=== PATIENT | female | born 1960 | race Caucasian/White ===

== ENCOUNTER → 2018-04-13 08:11 | Outpatient (CLI) | payer BC, SELFPAY ==
--- NOTE | 2018-04-13 08:13 | MM_ITS ---
MM Dig screening mamm BI w/CAD CAD Screening COMPARISON: Digital mammograms 04/07/2016 and 12/15/2011 INDICATION: There is no personal or family history of breast cancer TECHNIQUE: Standard CC and MLO images were obtained. R2 CAD reviewed. FINDINGS: Prominent heterogenic fibroglandular densities are seen in both breasts and the findings are bilateral and symmetrical. There are scattered benign-appearing calcifications in each breast. There is no new or suspicious lesion in either breast and there are no suspicious microcalcifications. IMPRESSION: Stable exam no suspicious lesion seen recommend yearly follow-up BI-RADS Category: 2 Benign Finding(s) RECOMMENDED FOLLOW-UP: 1YR - 1 YEAR FOLLOW-UP (A letter has been sent to the patient regarding results of the study.)
--- NOTE | 2018-04-13 08:13 | XR_ITS ---
XR DEXA axial skeleton HISTORY: ITS.REASON: screenin ORDERING PHYSICIAN: Andrei Pacheco MD PATIENT AGE: 57 years COMPARISON: 04/07/2016 FINDINGS: The BMD measured at the Right femoral neck is 0.849 g/cm squared with a T score of -1.4. This is considered Osteopenic according to the World Health Organization criteria. Fracture risk is Moderate. Treatment is advised. L1 L4 density has a T score of -0.2. The density of the lumbar spine is decreased by 1.7%. The density of the hips has increased by 2.5% compared to the previous study IMPRESSION: Osteopenia with moderate fracture risk. Recommend follow-up exam April 2020
== END ==
PROVIDERS: Family Provider Family Medicine; PCP Family Medicine; Visit Provider Obstetrics & Gynecology
DX: Z12.31 Encounter for screening mammogram for malignant neoplasm of breast (principal); Z78.0 Asymptomatic menopausal state
CPT/HCPCS: 77067; 77080

== ENCOUNTER → 2021-05-21 07:16 | Outpatient (CLI) | payer BC, SELFPAY ==
--- NOTE | 2021-05-21 07:23 | US_ITS ---
PROCEDURE: US ABDOMEN COMPLETE CLINICAL INDICATION: LT UPPER QUAD PAIN COMPARISON: CR CXR CHEST(2 VIEWS-NOT PORTABLE) from 07/17/2013 FINDINGS: PANCREAS: The body and head of the pancreas have an unremarkable appearance. The tail the pancreas is not well delineated due to overlying bowel gas.. LIVER: Diffuse increased echogenicity of the liver with poor through transmission of sound consistent with hepatic steatosis. No focal liver lesion demonstrated. There is appropriate direction of blood flow within non dilated portal vein. RIGHT KIDNEY: There is an exophytic solid-appearing right renal mass measuring approximately 5 cm projecting from the lateral aspect of the right kidney. No hydronephrosis. LEFT KIDNEY: 2 cm left renal cyst. No hydronephrosis. GALLBLADDER: No gallstones, gallbladder wall thickening, pericholecystic fluid, or biliary dilatation. SPLEEN: Unremarkable. Normal size and echogenicity ASCITES: None demonstrated. Patient reports a palpable abnormality in the left upper quadrant. Evaluation of this area demonstrates a a 5 x 2 cm area of slight increased echogenicity with thin linear bands of increased echogenicity centrally suggesting a lipoma. IMPRESSION: Suspicious 5 cm right renal mass. Suggest CT of the abdomen with renal protocol for further evaluation as neoplasm is considered. Palpable abnormality in the left upper quadrant appears to represent a lipoma Dictated by: Colt Benson MD 05/21/2021 09:17 Colt Benson MD in [place] 05/21/2021 09:17
== END ==
PROVIDERS: PCP Family Medicine; Visit Provider Family Medicine
DX: R10.12 Left upper quadrant pain (principal)
CPT/HCPCS: 76700

== ENCOUNTER → 2021-06-11 08:19 | Outpatient (CLI) | payer BC, SELFPAY ==
--- NOTE | 2021-06-11 08:27 | CT_ITS ---
PROCEDURE: CT ABDOMEN PELVIS WO/W CON CLINICAL INDICATION: NEOPLASM OF RT KIDNEY Neoplasm seen on US 05/21/21 Right renal mass evaluation COMPARISON: US US ABDOMEN COMPLETE from 05/21/2021 TECHNIQUE: IV Contrast: 75ML Isovue 370 Oral Contrast None Axial images obtained with sagittal and coronal reformats. All CT scans at the facility use one or more dose reduction, viz: automated exposure control, ma/kV adjustment per patient size (including targeted exams where dose is matched to indication, i.e. head), or iterative reconstruction technique. FINDINGS: LOWER THORAX: Atelectatic or fibrotic change in the lung bases. ABDOMEN & PELVIS: 2 small hypodensities right hepatic lobe at 2 and 4 mm not readily apparent on the enhanced images and could be due to small hemangiomas. The spleen, adrenal glands, and pancreas has an unremarkable appearance. No radiopaque gallstones. There is a solid right renal mass measuring 4.6 by 3.4 by 3.3 cm projecting off of the lower pole of the right kidney posteriorly which demonstrates some minimal peripheral and heterogeneous contrast enhancement consistent with neoplasm. No calcifications within the lesion. The right renal vein has an unremarkable appearance without evidence of thrombus or enlargement. There is a 2.8 cm left renal cyst. No hydronephrosis. No renal or ureteral calculi. No retroperitoneal adenopathy. No intestinal obstruction or free air. There is a small umbilical hernia containing fat. No evidence of appendicitis or diverticulitis. There has been a prior hysterectomy. No pelvic mass or abnormal fluid collection. No lytic or blastic bony lesions. IMPRESSION: 4.6 cm solid right renal mass consistent with neoplasm likely renal cell carcinoma. No evidence of intra-abdominal metastasis. Dictated by: Colt Benson MD 06/12/2021 08:56 Colt Benson MD in [place] 06/12/2021 08:56
[2021-06-11 09:15] LABS: Blood Urea Nitrogen 20 mg/dl (7-17); Estimated Glomerular Filt Rate 73 ml/min (>60); GFR (African American) 88 ML/MIN (>60)
== END ==
PROVIDERS: PCP Family Medicine; Visit Provider Family Medicine
DX: D41.01 Neoplasm of uncertain behavior of right kidney (principal)
CPT/HCPCS: 36415; 74178; 82565; 84520; Q9967

== ENCOUNTER → 2021-07-06 10:06 | Outpatient (CLI) | payer BC, SELFPAY ==
--- NOTE | 2021-07-06 10:18 | CT_ITS ---
PROCEDURE: CT CHEST WO/W CON CLINCAL INDICATION: renal mass Renal mass. Evaluate for metastatic disease. COMPARISON: CT CT ABDOMEN PELVIS WO/W CON from 06/11/2021 TECHNIQUE: IV Contrast: 75ml Isovue 370 Axial images obtained with sagittal and coronal reformats. All CT scans at the facility use one or more dose reduction, viz: automated exposure control, ma/kV adjustment per patient size (including targeted exams where dose is matched to indication, i.e. head), or iterative reconstruction technique. FINDINGS: No mediastinal or hilar mass or adenopathy. A 1.6 cm nodule is present in the left lobe of the thyroid gland and may be better evaluated with ultrasound. A 4 mm noncalcified nodule is present in the right lower lobe , nonspecific. Calcified granuloma is present in the right lower lobe anteriorly. There are calcified nodes in the roger. A 6 mm noncalcified nodule is present in the left upper lobe 02/09. There are areas of scarring in the left lower lobe. No infiltrates. No effusions apparent. No lytic or blastic bony lesions apparent there are degenerative changes in the thoracic spine.. IMPRESSION: 1. There is a noncalcified 4 mm nodule in the right lower lobe and a noncalcified 6 mm nodule in the left upper lobe. These could be due to granulomas or small metastatic foci. There is evidence of old granulomatous disease with a calcified granuloma in the right lower lobe and calcified hilar lymph nodes. Continued follow-up suggested to confirm stability or progression. 2. 1.6 cm nodule of the left lobe of the thyroid gland which may be better evaluated with ultrasound. Dictated by: Colt Benson MD 07/07/2021 07:43 Colt Benson MD in [place] 07/07/2021 07:43
[2021-07-06 10:33] LABS: Blood Urea Nitrogen 17 mg/dl (7-17); Estimated Glomerular Filt Rate 73 ml/min (>60); GFR (African American) 88 ML/MIN (>60)
== END ==
PROVIDERS: PCP Family Medicine; Visit Provider Urology
DX: N28.89 Other specified disorders of kidney and ureter (principal)
CPT/HCPCS: 36415; 71270; 82565; 84520; Q9967

== ENCOUNTER → 2021-11-02 08:22 | Outpatient (POV) | payer BC, SELFPAY | PROVIDERS: Visit Provider Dermatology | DX: Z00.00 Encounter for general adult medical examination without abnormal findings (principal) ==

== ENCOUNTER → 2021-12-06 16:32 | Outpatient (CLI) | payer BC, SELFPAY ==
[2021-12-06 17:17] LABS: Basophils # 0.1 K/mm3 (0-0.2); Eosinophils # 0.1 K/mm3 (0.0-0.4); Eosinophils % 0.8 % (0.1-12.0); Hematocrit 41.9 % (37.0-47.0); Hemoglobin 13.2 g/dL (12.2-16.2); Mean Corpuscular HGB Conc 31.6 g/dL (31.8-35.4); Mean Corpuscular Hemoglobin 28.4 pg (27.0-31.2); Mean Corpuscular Volume 89.9 fl (81-99); Mean Platelet Volume 8.5 fl (7.4-10.4); Monocytes # 0.5 K/mm3 (0.1-1.0); Monocytes % 4.5 % (1.7-9.3); Neutrophils # 7.1 K/mm3 (1.8-7.8); Neutrophils % 65.6 % (37.0-80.0); Platelet Count 380 K/mm3 (142-424); Red Blood Count 4.66 M/mm3 (4.20-5.40); Red Cell Distribution Width 15.1 % (11.5-17.5); White Blood Count 10.8 K/mm3 (4.8-10.8)
[2021-12-06 19:42] LABS: Alanine Aminotransferase 17 U/L (12-78); Albumin Level 4.6 g/dl (3.5-5.0); Albumin/Globulin Ratio 1.6 (1.1-1.8); Alkaline Phosphatase 87 U/L (38-126); Anion Gap 15.5 mEq/L (5-15); Aspartate Amino Transferase 26 U/L (14-36); Bilirubin,Total 0.8 mg/dl (0.2-1.3); Blood Urea Nitrogen 25 mg/dl (7-17); Calcium 9.7 mg/dl (8.4-10.2); Carbon Dioxide 30 mmol/L (22.0-30.0); Chloride 96 mmol/L (98-107); Estimated Glomerular Filt Rate 73 ml/min (>60); GFR (African American) 88 ML/MIN (>60); Globulin 2.9 g/dL (1.3-3.2); Glucose 89 mg/dl (74-100); Potassium 4.5 mmoL/L (3.5-5.1); Sodium 137 mmol/L (136-145); Total Protein,Serum 7.5 g/dl (6.3-8.2)
== END ==
PROVIDERS: Internal Medicine Medical Oncology; Visit Provider Dermatology
DX: C64.1 Malignant neoplasm of right kidney, except renal pelvis
CPT/HCPCS: 36415; 80053; 85025

== ENCOUNTER → 2021-12-07 08:37 | Outpatient (CLI) | payer BC, SELFPAY ==
--- NOTE | 2021-12-07 08:59 | CT_ITS ---
FINAL REPORT TECHNIQUE: After the administration of intravenous contrast, axial images through the chest were performed by computed tomography. This study was performed with techniques to keep radiation doses as low as reasonably achievable, (ALARA). Individualized dose reduction techniques using automated exposure control or adjustment of mA and/or kV according to the patient''s size were employed. CLINICAL HISTORY: RENAL CELL cancer f/u COMPARISON: 07/06/2021 FINDINGS: There is a 1.7 cm left thyroid lobe nodule which appears stable. There is no axillary adenopathy. There is no hilar or mediastinal adenopathy. The heart size is normal. There is no pericardial or pleural effusion. The previously questioned nodule in the right lower lobe is no longer seen. The density in the left upper lobe appear stable. Finding is well-seen on image 29 of series 4. No new lesion is identified. IMPRESSION: Stable left upper lobe density. Recommend follow-up in one year to confirm stability. Reviewed, Interpreted and Dictated by Ilya Vieira MD Transcribed by Kaycee Whtiaker Authenticated by Ilya Vieira MD on 12/07/2021 12:45:42 PM [facility]
--- NOTE | 2021-12-07 09:01 | CT_ITS ---
FINAL REPORT CLINICAL HISTORY: RENAL CELL f/u COMPARISON: 06/11/2021 FINDINGS: Technique: The patient was injected with intravenous contrast. Axial images through the abdomen and pelvis were performed. Oral contrast was given. This study was performed with techniques to keep radiation doses as low as reasonably achievable (ALARA). Individualized dose reduction techniques using automated exposure control or adjustment of mA and/or kV according to the patient's size were employed. Abdomen: The liver parenchyma is homogeneous. The gallbladder is present. The spleen is unremarkable. The adrenals are normal. The pancreas is unremarkable. There is a defect in the lateral right kidney with adjacent perinephric stranding consistent with interval partial right nephrectomy. No definite residual solid mass is identified. There is a benign-appearing cyst in the left kidney measuring 3.4 cm in diameter. There is no evidence of retroperitoneal adenopathy. The aorta is normal in caliber. Pelvis: The appendix is unremarkable. The bladder is incompletely distended. Uterus is surgically absent. There is no free fluid or adenopathy. IMPRESSION: Interval partial right nephrectomy. No definite residual mass identified. Reviewed, Interpreted and Dictated by Ilya Vieira MD Transcribed by Kaycee Whitaker Authenticated by Ilya Vieira MD on 12/07/2021 12:45:19 PM [facility][1]
== END ==
PROVIDERS: PCP Family Medicine; Visit Provider Internal Medicine Medical Oncology
DX: C64.1 Malignant neoplasm of right kidney, except renal pelvis (principal)
CPT/HCPCS: 71260; 74177; Q9967

== ENCOUNTER → 2022-06-20 13:44 | Outpatient (CLI) | payer BC, SELFPAY ==
[2022-06-20 15:18] LABS: Blood Urea Nitrogen 17 mg/dl (7-17); Estimated Glomerular Filt Rate 73 ml/min (>60); GFR (African American) 88 ML/MIN (>60)
== END ==
PROVIDERS: PCP Family Medicine; Visit Provider Internal Medicine Medical Oncology
DX: C64.1 Malignant neoplasm of right kidney, except renal pelvis (principal)
CPT/HCPCS: 36415; 82565; 84520

== ENCOUNTER → 2022-07-01 08:49 | Outpatient (CLI) | payer BC, OTHER, SELFPAY ==
--- NOTE | 2022-07-01 08:53 | CT_ITS ---
FINAL REPORT CLINICAL HISTORY: RENAL CELL CANCER F/U COMPARISON: December 07, 2021 FINDINGS: Axial CT images of the chest were obtained with contrast. Coronal reformatted images were also obtained. Oral contrast was administered. This study was performed with techniques to keep radiation doses as low as reasonably achievable, (ALARA). Individualized dose reduction techniques using automated exposure control or adjustment of mA and/or KV according to the patient's size were employed. There is a 16 mm nodule in the left thyroid lobe that is visually stable. There is no evidence of mediastinal or hilar mass or adenopathy.No axillary mass or adenopathy is identified. On lung window images, there is mild scarring in the lung bases. There is a stable 5 mm nodule in the left upper lobe, seen on image 33. IMPRESSION: Left upper lobe nodule stable. Reviewed, Interpreted and Dictated by Marques Haynes III, MD Transcribed by Na Rivera Authenticated and [facility]
--- NOTE | 2022-07-01 08:53 | CT_ITS ---
FINAL REPORT CLINICAL HISTORY: RENAL CELL CANCER F/U COMPARISON: December 07, 2021 FINDINGS: CT OF THE ABDOMEN AND PELVIS WITH CONTRAST Axial CT images of the abdomen and pelvis were obtained after the administration of oral and iv contrast. Coronal reformatted images were also obtained and reviewed.This study was performed with techniques to keep radiation doses as low as reasonably achievable (ALARA). Individualized dose reduction techniques using automated exposure control or adjustment of mA and/or kV according to the patient's size were employed. Abdomen: The liver has an unremarkable appearance, without evidence of mass or biliary ductal dilatation. The spleen is unremarkable. No adrenal mass is present. The pancreas has an unremarkable appearance. There are postoperative changes of the lateral right kidney. There is a 3.2 cm cyst in the lower pole of the left kidney which is stable. The aorta is normal in caliber. There is no free fluid or adenopathy. No mass or abnormal fluid collection is seen. There is a small umbilical hernia containing fat. Pelvis: The appendix small. The urinary bladder is unremarkable. No inflammatory process is seen. There is no evidence of mass or adenopathy. There is no evidence of bowel obstruction. The patient is status post hysterectomy. IMPRESSION: Cyst in the lower pole of the left kidney, stable. Postoperative changes lateral right kidney. Reviewed, Interpreted and Dictated by Marques Haynes III, MD Transcribed by Na Rivera Authenticated and [facility]
== END ==
PROVIDERS: PCP Family Medicine; Visit Provider Internal Medicine Medical Oncology
DX: C64.1 Malignant neoplasm of right kidney, except renal pelvis (principal)
CPT/HCPCS: 71260; 74177; Q9967

== ENCOUNTER → 2022-08-30 11:48 | Outpatient (CLI) | payer BC, OTHER, SELFPAY ==
--- NOTE | 2022-08-30 11:55 | XR_ITS ---
FINAL REPORT CLINICAL HISTORY: OBESITY FINDINGS: TWO-VIEW CHEST The heart size is normal. The mediastinum is normal. There is mild bibasilar atelectasis or scar. There is no pneumothorax. IMPRESSION: Mild bibasilar atelectasis or scar. Reviewed, Interpreted and Dictated by Marques Haynes III, MD Transcribed by Kaycee Whitaker Authenticated and [facility]
--- NOTE | 2022-08-30 12:21 | ECG_ITS ---
APPROVED REPORT Exam: Resting ECG HR:47 bpm ECG Measurements Heart Rate 47 AXES SD 168 P 46 QRSd 94 QRS 73 QT 414 T 66 QTc 378 Conclusion SINUS BRADYCARDIA BORDERLINE ECG UNCONFIRMED REPORT Electronically signed by : Mingo Sorenson MD 08/30/2022 20:52:06
== END ==
PROVIDERS: PCP Family Medicine; Visit Provider Nurse Practitioner Family
DX: E66.9 Obesity, unspecified (principal); Z68.42 Body mass index [BMI] 45.0-49.9, adult
CPT/HCPCS: 71046; 93005

== ENCOUNTER 2022-11-02 08:16 | Day surgery (SDC) | payer BC, OTHER, SELFPAY ==
[2022-11-02] VITALS (11 sets, daily range): BP systolic 116–164; BP diastolic 59–100; PULSE 52–66; RESP 16–20; O2SAT 91–95; BMI 44.0
--- NOTE | 2022-11-02 07:03 | IR_ITS ---
APPROVED REPORT Patient Location: Outpatient Job Placement Counselor: IZAIAH Osullivan RT (R) PROCEDURES Left heart catheterization Left ventriculogram Selective coronary angiogram INDICATION Abnormal Myoview, Angina pectoris Informed consent was obtained prior to the procedure. COMPLICATIONS None Estimated Blood Loss: Less than 10 mls TECHNIQUE One percent lidocaine used to anesthetize the right anterior aspect of the wrist. The right radial artery was accessed via the Seldinger technique. A 6 Cypriot sheath was placed in the right radial artery. 2.5 mg of verapamil, 800 mcg of nitroglycerin, 1mg Lidocaine and 5000 U Heparin were given through the arterial sheath. The papa catheter was also used to perform left heart catheterization, left ventriculogram and selective coronary angiogram. At the end of the procedure the sheath was removed good hemostasis was achieved using Traclet band, patient was transferred to the postop holding area in stable condition. ANGIOGRAPHIC RESULTS The left main artery Normal The left anterior descending artery Normal The circumflex artery Dominant normal The right coronary artery Vestigial normal The YBARRA ventriculogram reveals Normal 65% The left ventricular end-diastolic pressure 20 to 25 mmHg IMPRESSION Normal coronary artery Normal ejection fraction Elevated LVEDP consistent with diastolic dysfunction which is the etiology for patient's angina PLAN 1. Treatment of diastolic dysfunction 2. Sleep study recommended Electronically signed by : Devang Irby MD 11/02/2022 11:01:47
[2022-11-02 08:38] LABS: Chloride 102 mmol/L (98-107); Potassium 3.8 mmoL/L (3.5-5.1); Sodium 141 mmol/L (136-145)
[2022-11-02 08:41] LABS: Anion Gap 9.8 mEq/L (5-15); Blood Urea Nitrogen 21 mg/dl (7-17); Carbon Dioxide 33 mmol/L (22.0-30.0); Creatinine Clearance Estimated 55 mL/min (50-200); Estimated Glomerular Filt Rate 56 ml/min (>60); GFR (African American) 68 ML/MIN (>60)
[2022-11-02 08:42] LABS: Calcium 10.3 mg/dl (8.4-10.2); Glucose 112 mg/dl (74-100)
[2022-11-02 10:27] LABS: Basophils # 0.1 K/mm3 (0-0.2); Basophils % 1.5 % (0.1-2.0); Eosinophils # 0.1 K/mm3 (0.0-0.4); Eosinophils % 1.2 % (0.1-12.0); Hematocrit 44.5 % (37.0-47.0); Lymphocytes # 2.6 K/mm3 (0.7-4.5); Mean Corpuscular HGB Conc 31.4 g/dL (31.8-35.4); Mean Corpuscular Hemoglobin 28.2 pg (27.0-31.2); Mean Platelet Volume 8.8 fl (7.4-10.4); Monocytes # 0.3 K/mm3 (0.1-1.0); Monocytes % 4.3 % (1.7-9.3); Neutrophils # 4.7 K/mm3 (1.8-7.8); Platelet Count 366 K/mm3 (142-424); Red Blood Count 4.95 M/mm3 (4.20-5.40); Red Cell Distribution Width 14.5 % (11.5-17.5); White Blood Count 7.8 K/mm3 (4.8-10.8)
== END 2022-11-02 13:53 | disposition home or self-care (01) ==
PROVIDERS: Nurse Practitioner; PCP Nurse Practitioner Family; Visit Provider Internal Medicine
DX: I25.118 Atherosclerotic heart disease of native coronary artery with other forms of angina pectoris (principal); C64.1 Malignant neoplasm of right kidney, except renal pelvis; E78.5 Hyperlipidemia, unspecified; R94.39 Abnormal result of other cardiovascular function study; R06.09 Other forms of dyspnea; Z79.899 Other long term (current) drug therapy
CPT/HCPCS: 36415; 80048; 85025; 93458; 99152; C1725; C1769; J1644; Q9967

== ENCOUNTER → 2023-01-10 09:54 | Outpatient (CLI) | payer BC, OTHER, SELFPAY ==
[2023-01-10 10:33] LABS: Basophils # 0.1 K/mm3 (0-0.2); Eosinophils # 0.1 K/mm3 (0.0-0.4); Eosinophils % 1.2 % (0.1-12.0); Hematocrit 43.5 % (37.0-47.0); Hemoglobin 13.9 g/dL (12.2-16.2); Lymphocytes # 2.3 K/mm3 (0.7-4.5); Lymphocytes % 24.9 % (10-50); Mean Corpuscular HGB Conc 31.9 g/dL (31.8-35.4); Mean Corpuscular Hemoglobin 28.8 pg (27.0-31.2); Mean Corpuscular Volume 90.3 fl (81-99); Mean Platelet Volume 8.5 fl (7.4-10.4); Monocytes # 0.3 K/mm3 (0.1-1.0); Monocytes % 3.5 % (1.7-9.3); Neutrophils # 6.4 K/mm3 (1.8-7.8); Neutrophils % 69.4 % (37.0-80.0); Platelet Count 361 K/mm3 (142-424); Red Blood Count 4.82 M/mm3 (4.20-5.40); Red Cell Distribution Width 14.6 % (11.5-17.5); White Blood Count 9.2 K/mm3 (4.8-10.8)
[2023-01-10 11:06] LABS: Chloride 103 mmol/L (98-107); Potassium 4.8 mmoL/L (3.5-5.1); Sodium 140 mmol/L (136-145)
[2023-01-10 11:08] LABS: Alanine Aminotransferase 21 U/L (12-78); Aspartate Amino Transferase 24 U/L (14-36); Blood Urea Nitrogen 38 mg/dl (7-17); Estimated Glomerular Filt Rate 46 ml/min (>60); GFR (African American) 55 ML/MIN (>60)
[2023-01-10 11:09] LABS: Albumin Level 4.6 g/dl (3.5-5.0); Albumin/Globulin Ratio 1.5 (1.1-1.8); Alkaline Phosphatase 91 U/L (38-126); Anion Gap 12.8 mEq/L (5-15); Bilirubin,Total 0.9 mg/dl (0.2-1.3); Calcium 10.2 mg/dl (8.4-10.2); Carbon Dioxide 29 mmol/L (22.0-30.0); Globulin 3.1 g/dL (1.3-3.2); Glucose 125 mg/dl (74-100); Total Protein,Serum 7.7 g/dl (6.3-8.2)
== END ==
PROVIDERS: PCP Internal Medicine Medical Oncology; Visit Provider Physician Assistant
DX: C64.9 Malignant neoplasm of unspecified kidney, except renal pelvis (principal)
CPT/HCPCS: 36415; 80053; 85025

== ENCOUNTER → 2023-01-11 07:25 | Outpatient (CLI) | payer BC, OTHER, SELFPAY ==
--- NOTE | 2023-01-11 07:33 | CT_ITS ---
FINAL REPORT TECHNIQUE: Pre-and postcontrast axial imaging of the abdomen and pelvis was obtained.This study was performed with techniques to keep radiation doses as low as reasonably achievable, (ALARA). Individualized dose reduction technique using automated exposure control or adjustment of mA and/or kV according to the patient's size were employed. CLINICAL HISTORY: RENAL CELL COMPARISON: 07/01/2022 FINDINGS: The lung bases are clear. The liver is homogeneous. The gallbladder is present. The spleen, adrenal glands, and pancreas are unremarkable. There is a stable 3 cm left renal cyst. Postoperative changes are noted to the lateral inferior right kidney. No solid renal mass is identified. On precontrast imaging, no renal stones are identified. Abdominal GI tract is unremarkable. There is no lymphadenopathy or ascites. The pelvic organs and pelvic portions of the GI tract, including the appendix, are within normal limits. The uterus is surgically absent. There is no lymphadenopathy or ascites. No acute osseous abnormalities identified. IMPRESSION: 1. No acute abnormality in the abdomen or pelvis. 2. Stable left renal cyst. 3. Postoperative changes in the right kidney without evidence of metastatic disease. Reviewed, Interpreted and Dictated by Blessing Ngo MD Transcribed by Kemi Mendez Authenticated and [facility]
== END ==
PROVIDERS: PCP Nurse Practitioner Family; Visit Provider Internal Medicine Medical Oncology
DX: C64.9 Malignant neoplasm of unspecified kidney, except renal pelvis (principal)
CPT/HCPCS: 74178; Q9967

== ENCOUNTER → 2023-01-23 19:46 | Outpatient (CLI) | payer BC, OTHER, SELFPAY | PROVIDERS: PCP Nurse Practitioner Family; Visit Provider Nurse Practitioner Family | DX: G47.33 Obstructive sleep apnea (adult) (pediatric) (principal); R40.0 Somnolence | CPT/HCPCS: 95810 ==

== ENCOUNTER → 2023-04-25 08:52 | Outpatient (CLI) | payer BC, OTHER, SELFPAY | PROVIDERS: PCP Nurse Practitioner Family; Visit Provider Physician Assistant | DX: R06.09 Other forms of dyspnea (principal); I51.89 Other ill-defined heart diseases; R94.30 Abnormal result of cardiovascular function study, unspecified | CPT/HCPCS: 93306; 94762 ==

== ENCOUNTER → 2023-09-07 10:32 | Outpatient (CLI) | payer BC, SELFPAY ==
--- NOTE | 2023-09-07 10:40 | CT_ITS ---
FINAL REPORT TECHNIQUE: Axial images through the abdomen and pelvis were performed without contrast. Oral contrast was given. This study was performed with techniques to keep radiation doses as low as reasonably achievable, (ALARA). Individualized dose reduction techniques using automated exposure control or adjustment of mA and/or kV according to the patient's size were employed. CLINICAL HISTORY: ORAL CONTRAST ONLY, HX OF KIDNEY CANCER RIGHT SIDE, NEW RIGHT SIDE PAIN COMPARISON: 01/11/2023 FINDINGS: ABDOMEN: There is mild scarring at the bases. The patient is status post gastric bypass. The heart size is normal. Limited images of the liver are unremarkable. The spleen is normal. No adrenal mass is identified. The aorta is normal in caliber. There is no significant free fluid or adenopathy. There are postoperative changes in the right kidney. Left renal cyst is identified. Note is made of vascular calcification. There is no nephrolithiasis. There is no hydronephrosis. PELVIS: The appendix is not identified. The patient is status post hysterectomy. The urinary bladder is unremarkable. There is no significant free fluid or adenopathy. IMPRESSION: Postsurgical changes. No acute inflammatory process. Reviewed, Interpreted and Dictated by Marques Haynes III, MD Transcribed by Kaycee Whitaker Authenticated and [facility]
== END ==
PROVIDERS: PCP Nurse Practitioner Family; Visit Provider Internal Medicine Medical Oncology
DX: C64.1 Malignant neoplasm of right kidney, except renal pelvis (principal); R10.31 Right lower quadrant pain
CPT/HCPCS: 74176

== ENCOUNTER → 2023-09-20 10:18 | Outpatient (CLI) | payer BC, SELFPAY ==
--- NOTE | 2023-09-20 10:21 | XR_ITS ---
FINAL REPORT CLINICAL HISTORY: . renal cell cancer 2 years ago, check-up COMPARISON: 08/30/2022 FINDINGS: PA and lateral views of the chest are obtained. The cardiac and mediastinal silhouettes are within normal limits. The lungs are clear. There is no pleural effusion, pneumothorax, or acute osseous abnormality. IMPRESSION: No radiographic evidence of acute cardiac or pulmonary disease. Reviewed, Interpreted and Dictated by Blessing Ngo MD Transcribed by Yolie Lomeli Authenticated and [facility]
== END ==
PROVIDERS: PCP Nurse Practitioner Family; Visit Provider Internal Medicine Medical Oncology
DX: Z85.528 Personal history of other malignant neoplasm of kidney (principal)
CPT/HCPCS: 71046

== ENCOUNTER → 2023-10-25 11:56 | Outpatient (CLI) | payer BC, SELFPAY ==
[2023-10-25 12:54] LABS: Chloride 102 mmol/L (98-107); Sodium 141 mmol/L (136-145)
[2023-10-25 12:55] LABS: Potassium 4.1 mmoL/L (3.5-5.1)
[2023-10-25 12:57] LABS: Blood Urea Nitrogen 23 mg/dl (7-17); Estimated Glomerular Filt Rate 72 ml/min (>60); GFR (African American) 88 ML/MIN (>60)
[2023-10-25 12:58] LABS: Anion Gap 10.1 mEq/L (5-15); Calcium 9.1 mg/dl (8.4-10.2); Carbon Dioxide 33 mmol/L (22.0-30.0); Glucose 99 mg/dl (74-100)
== END ==
PROVIDERS: Nurse Practitioner Family; PCP Nurse Practitioner Family; Visit Provider Obstetrics & Gynecology
DX: I51.89 Other ill-defined heart diseases (principal); R94.30 Abnormal result of cardiovascular function study, unspecified
CPT/HCPCS: 36415; 80048

== ENCOUNTER → 2023-10-30 09:57 | Outpatient (CLI) | payer BC, SELFPAY ==
[2023-10-30 11:20] VITALS: PULSE 69; PULSE 76
== END ==
PROVIDERS: PCP Nurse Practitioner Family; Visit Provider Internal Medicine Pulmonary Disease
DX: R06.09 Other forms of dyspnea (principal)
CPT/HCPCS: 94060; 94618; 94640; 94726; 94729

== ENCOUNTER 2024-01-24 11:34 | Outpatient (CLI) | payer BC, SELFPAY ==
[2024-01-24 12:27] LABS: Basophils # 0.1 K/mm3 (0-0.2); Eosinophils # 0.1 K/mm3 (0.0-0.4); Hemoglobin 12.7 g/dL (12.2-16.2); Lymphocytes # 2.4 K/mm3 (0.7-4.5); Lymphocytes % 34.9 % (10-50); Mean Corpuscular HGB Conc 31.7 g/dL (31.8-35.4); Mean Corpuscular Hemoglobin 30.8 pg (27.0-31.2); Mean Corpuscular Volume 97.2 fl (81-99); Mean Platelet Volume 8.7 fl (7.4-10.4); Monocytes # 0.3 K/mm3 (0.1-1.0); Monocytes % 4.2 % (1.7-9.3); Platelet Count 307 K/mm3 (142-424); Red Blood Count 4.12 M/mm3 (4.20-5.40); Red Cell Distribution Width 14.1 % (11.5-17.5); White Blood Count 6.7 K/mm3 (4.8-10.8)
[2024-01-24 12:55] LABS: Alanine Aminotransferase 32 U/L (12-78); Albumin Level 4.5 g/dl (3.5-5.0); Alkaline Phosphatase 90 U/L (38-126); Anion Gap 10.8 mEq/L (5-15); Aspartate Amino Transferase 42 U/L (14-36); Bilirubin,Indirect 1.4 mg/dL (0.0-0.9); Bilirubin,Total 1.4 mg/dl (0.2-1.3); Bilirubin,Unconjugated 1.4 mg/dL (0.0-1.1); Blood Urea Nitrogen 29 mg/dl (7-17); Calcium 9.5 mg/dl (8.4-10.2); Carbon Dioxide 30 mmol/L (22.0-30.0); Chloride 104 mmol/L (98-107); Chol/HDL Ratio 4.2 (1-3.5); Cholesterol 156 mg/dl (140-200); Estimated Glomerular Filt Rate 72 ml/min (>60); GFR (African American) 88 ML/MIN (>60); Glucose 95 mg/dl (74-100); HDL Cholesterol 37 mg/dl (40-60); Magnesium 2.1 mg/dl (1.6-2.3); Potassium 4.8 mmoL/L (3.5-5.1); Sodium 140 mmol/L (136-145); Triglycerides 168 mg/dl (30-150); VLDL Cholesterol 34 mg/dL (0-40)
[2024-01-24 13:06] LABS: Direct LDL Cholesterol 81.95 mg/dL (100-129)
[2024-01-24 13:25] LABS: Thyroid Stimulating Hormone 1.68 uIU/mL (0.465-4.68)
== END 2024-01-24 23:59 ==
LOC: LAB 11:35
PROVIDERS: PCP Nurse Practitioner Family; Visit Provider Nurse Practitioner Family
DX: E11.69 Type 2 diabetes mellitus with other specified complication (principal); E78.5 Hyperlipidemia, unspecified; E66.9 Obesity, unspecified; Z68.32 Body mass index [BMI] 32.0-32.9, adult; Z86.79 Personal history of other diseases of the circulatory system
CPT/HCPCS: 36415; 80048; 80061; 80076; 83735; 84439; 84443; 85025

== ENCOUNTER 2024-02-24 07:52 | Outpatient (CLI) | payer BC, SELFPAY ==
[2024-02-24 09:24] LABS: Alanine Aminotransferase 30 U/L (12-78); Albumin Level 4.1 g/dl (3.5-5.0); Alkaline Phosphatase 86 U/L (38-126); Aspartate Amino Transferase 35 U/L (14-36); Bilirubin,Direct 0.2 mg/dl (0.0-0.4); Bilirubin,Indirect 0.9 mg/dL (0.0-0.9); Bilirubin,Total 1.1 mg/dl (0.2-1.3); Bilirubin,Unconjugated 0.9 mg/dL (0.0-1.1); Total Protein,Serum 6.9 g/dl (6.3-8.2)
== END 2024-02-24 23:59 ==
LOC: LAB 07:53
PROVIDERS: PCP Nurse Practitioner Family; Visit Provider Nurse Practitioner Family
DX: R74.8 Abnormal levels of other serum enzymes (principal)
CPT/HCPCS: 36415; 80076

== ENCOUNTER 2024-07-02 08:49 | Outpatient (CLI) | payer BC, OTHER, SELFPAY ==
--- NOTE | 2024-07-02 08:54 | XR_ITS ---
FINAL REPORT CLINICAL HISTORY: .? RA COMPARISON: None FINDINGS: Two views of the left wrist were obtained. There is no acute fracture or dislocation. Osteopenia is noted. There are mild hypertrophic changes of the basilar joint consistent with osteoarthritis. There is no evidence of bony erosions. There is no acute soft tissue abnormality. IMPRESSION: Mild osteoarthritis basilar joint. Reviewed, Interpreted and Dictated by Ilya Vieira MD Transcribed by Yesica Hale Authenticated and . [facility]
--- NOTE | 2024-07-02 08:54 | XR_ITS ---
FINAL REPORT CLINICAL HISTORY: ..? RA COMPARISON: None FINDINGS: Two views of the left hand were obtained. There is no acute fracture or dislocation. There are moderate hypertrophic changes in the basilar joint. There is no evidence of bony erosion. There is no acute soft tissue abnormality. IMPRESSION: Moderate hypertrophic changes without acute abnormality identified. Reviewed, Interpreted and Dictated by Ilya Vieira MD Transcribed by Yesica Hale Authenticated and [facility]
--- NOTE | 2024-07-02 08:54 | XR_ITS ---
FINAL REPORT CLINICAL HISTORY: ..? RA COMPARISON: None FINDINGS: 3 views of the right hand were obtained. There is an expansile lucent lesion in the proximal portion of the fourth middle phalange measuring 1.2 x 1.0 cm. This is probably related to an enchondroma. There is no evidence of pathologic fracture. No bony erosions are seen. There is no acute soft tissue abnormality. 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 Reviewed, Interpreted and Dictated by Ilya Vieira MD Transcribed by Yesica Hale Authenticated and [facility]
--- NOTE | 2024-07-02 08:54 | XR_ITS ---
FINAL REPORT CLINICAL HISTORY: ..? RA COMPARISON: None FINDINGS: Two views of the right wrist were obtained. There is no acute fracture or dislocation. The joint spaces are well preserved. Mild osteopenia is noted. There are no bony erosions. There is no acute soft tissue abnormality. IMPRESSION: Mild osteopenia. Reviewed, Interpreted and Dictated by Ilay Vieira MD Transcribed by Yesica Hale Authenticated and [facility]
--- NOTE | 2024-07-02 08:55 | XR_ITS ---
FINAL REPORT CLINICAL HISTORY: PAIN, .? RA COMPARISON: None FINDINGS: RIGHT HIP Two views of the right hip demonstrate no acute fracture or dislocation. The joint spaces appear normal. The visualized bony structures are well aligned. No evidence of bony erosion. No soft tissue abnormality is seen. IMPRESSION: No acute bony abnormality. Reviewed, Interpreted and Dictated by Ilya Vieira MD Transcribed by Yesica Hale Authenticated and [facility]
--- NOTE | 2024-07-02 08:55 | XR_ITS ---
FINAL REPORT CLINICAL HISTORY: .? RA COMPARISON: None FINDINGS: SACROILIAC JOINTS SERIES Three views were obtained. There is no acute fracture or dislocation. The joint spaces appear normal. The visualized bony structures are well aligned. There is no evidence of bony erosion. No soft tissue abnormality is seen. IMPRESSION: No acute bony abnormality. Reviewed, Interpreted and Dictated by Ilya Vieira MD Transcribed by Yesica Hale Authenticated and [facility]
--- NOTE | 2024-07-02 08:55 | XR_ITS ---
FINAL REPORT CLINICAL HISTORY: .? RA COMPARISON: None FINDINGS: LEFT HIP: Two views of the left hip demonstrate no acute fracture or dislocation. The joint spaces appear normal. The visualized bony structures are well aligned. No evidence of bony erosion. No soft tissue abnormality is seen. IMPRESSION: No acute bony abnormality. Reviewed, Interpreted and Dictated by Ilya Vieira MD Transcribed by Yesica Hale Authenticated and [facility]
== END 2024-07-02 23:59 | disposition home or self-care (01) ==
LOC: RAD 08:50
PROVIDERS: PCP Nurse Practitioner Family; Visit Provider Nurse Practitioner Primary Care
DX: M25.551 Pain in right hip (principal); M25.552 Pain in left hip; M25.50 Pain in unspecified joint
CPT/HCPCS: 72202; 73100; 73120; 73502

== ENCOUNTER 2024-07-12 08:37 | Outpatient (CLI) | payer BC, OTHER, SELFPAY ==
--- NOTE | 2024-07-12 08:42 | CA_ITS ---
APPROVED REPORT EXAM: Comprehensive 2D, Doppler, and color-flow Echocardiogram [employer] Cooking Machine Operator: Jess Muñoz, RCS, RVS Ht: 5 ft 6 in Wt: 201lbs BSA: 2.00 BP: 161/69 mmHg Indications: Murmur, DM, Tricuspid regurgitation, HTN, HLD, CP, EILEEN, Renal CA 2D Dimensions Aortic Root 2.38 cm LA Volume 90.10 mL Left Atrium 3.26 cm LA Volume Index 45.00 mL/m2 (M/F) 16-34 RVID Base (AP4) 2.51 cm (M/F) 2.5-4.1 EF AP4 55.40 % LVOT 1.96 cm (M/F) 1.5-2.5 GL Strain -17.5 % M-Mode Dimensions RVDd 2.90 cm (0.9-2.6) LVDd 5.58 cm (3.5-5.7) Ao Diam 2.82 cm (2.0-3.7) LVDs 3.58 cm (3.5-5.7) IVSd 0.99 cm (0.6-1.1) PWd 0.60 cm (0.6-1.1) EF (Teich) 64.80% EPSs 0.80 cm FS 35.80% EDV (Teich) 152.40 mL TAPSE 1.57 (<1.7) ESV (Teich) 53.70 mL LV Diastology E Decel Time 278 (160-240 msec) E/A Ratio 1.58 MED E' 6.3 (>= 7 cm/sec) MED A' 8.90 cm/s E'/MED E' Ratio 16.24 (<= 14) LAT E' 6.9 (>= 10 cm/sec) LAT A' 7.80 cm/s E/LAT E' Ratio 14.83 (<= 14) Aortic Valve LVOT Max 96.0 (70-110 cm/s) CESARIO Index 0.89 cm2/m2 LVOT VTI 23.16 cm AoV Peak Hernan. 168.0 (50-130 cm/s) AO Mean GR. 6.00 (<5 mmHg) AO VTI 39.4 (18-25 cm) CESARIO (VTI) 1.77 (2.5-4.5 cm2) Mitral Valve MV E Max Hernan. 102.0 (40-130 cm/s) MV A Velocity 65.0 (40-130 cm/s) E/A Ratio 1.58 MV Decel. Time 278 (160-240 ms) MV Mean Gr. 1.30 (<2mmHg) Pulmonary Valve SC End VMAX 136.0 cm/s Tricuspid Valve TR P. Velocity 286.00 cm/s RAP Estimate 10.00 mmHg RVSP 42.60 mmHg Left Ventricle The left ventricle is normal size. The left ventricular systolic function is normal. The left ventricular ejection fraction is within the normal range. There is increased LV wall thickness. There is normal LV segmental wall motion. The left ventricular diastolic function is normal. LVEF is 55%. Right Ventricle The right ventricle is normal size. The right ventricular systolic function is normal. Atria The left atrium size is normal. The right atrium size is normal. There is no Doppler evidence of interatrial shunt. Aortic Valve The aortic valve is mildly thickened. There is no aortic valvular stenosis. Trace aortic regurgitation. Mitral Valve The mitral valve leaflets are mildly thickened. No evidence of mitral valve stenosis. Mild mitral regurgitation. Tricuspid Valve The tricuspid valve leaflets are thin and pliable. Mild to moderate tricuspid regurgitation. RVSP is 30-35 mmHg. Pulmonic Valve The pulmonary valve is normal in structure. Trace pulmonic regurgitation. Great Vessels The aortic root is normal in size. The ascending aorta is normal in size. IVC is normal in size and collapses >50% with inspiration. Pericardium There is no pericardial effusion. Other Information Study Quality: Fair Conclusion Normal biventricular systolic function. Mild MR. Mild to moderate TR. RVSP 30-35 mmHg. Electronically signed by : Bertha Coello MD 07/17/2024 11:35:53
== END 2024-07-12 23:59 | disposition home or self-care (01) ==
LOC: RT 08:38
PROVIDERS: PCP Nurse Practitioner Family; Visit Provider Physician Assistant
DX: R01.1 Cardiac murmur, unspecified (principal); I51.89 Other ill-defined heart diseases
CPT/HCPCS: 93306

== ENCOUNTER 2024-09-17 06:55 | Outpatient (CLI) | payer BC, OTHER, SELFPAY ==
--- NOTE | 2024-09-17 06:58 | CT_ITS ---
FINAL REPORT TECHNIQUE: Axial images through the abdomen and pelvis were performed without contrast. This study was performed with techniques to keep radiation doses as low as reasonably achievable, (ALARA). Individualized dose reduction techniques using automated exposure control or adjustment of mA and/or kV according to the patient's size were employed. CLINICAL HISTORY: renal cell carcinoma COMPARISON: 01/11/2023 FINDINGS: ABDOMEN: There is mild scarring in the lung bases. The heart size is normal. There is a stable small probable cyst in the posterior right liver dome. There are postoperative changes from presumed gastric bypass. The spleen is normal. No adrenal mass is identified. The aorta is normal in caliber. There is no significant free fluid or adenopathy. There are postoperative changes in the right kidney. Stable presumed left renal cyst is identified. Moderate vascular calcification is identified. There is no nephrolithiasis. There is no hydronephrosis. PELVIS: The appendix is not identified. Patient is status post hysterectomy. The urinary bladder is unremarkable. There is no significant free fluid or adenopathy. IMPRESSION: Postoperative changes as above. Reviewed, Interpreted and Dictated by Marques Haynes III, MD Transcribed by Kaycee Whitaker Authenticated and [facility]
== END 2024-09-17 23:59 | disposition home or self-care (01) ==
LOC: RAD 06:56
PROVIDERS: PCP Nurse Practitioner Family; Visit Provider Internal Medicine Medical Oncology
DX: Z85.528 Personal history of other malignant neoplasm of kidney (principal)
CPT/HCPCS: 74176

== ENCOUNTER 2024-09-20 09:58 | Outpatient (CLI) | payer BC, OTHER, SELFPAY ==
--- NOTE | 2024-09-20 10:02 | XR_ITS ---
FINAL REPORT CLINICAL HISTORY: CANCER COMPARISON: August 30, 2022 FINDINGS: 2 views of the chest were obtained. The heart size and pulmonary vascularity are within normal limits. The mediastinum is normal. There are linear opacities at the left lung base, favor scarring. The right lung is clear. There is no evidence of pneumothorax or pleural effusion. The bony thorax is intact. Mild to moderate degenerative changes are noted of the thoracic spine. IMPRESSION: Stable presumed scarring left lung base. No acute abnormality identified. Authenticated and ERN
== END 2024-09-20 23:59 | disposition home or self-care (01) ==
LOC: RAD 09:59
PROVIDERS: PCP Nurse Practitioner Family; Visit Provider Internal Medicine Medical Oncology
DX: C50.919 Malignant neoplasm of unspecified site of unspecified female breast (principal); C64.9 Malignant neoplasm of unspecified kidney, except renal pelvis
CPT/HCPCS: 71046

== ENCOUNTER → 2025-03-14 20:03 | Outpatient (CLI) | payer BC, OTHER, SELFPAY ==
--- OUTSIDE RECORDS SUMMARY | 2025-03-14 20:06 | XMS_ITS | Continuity of Care Document ---
Author Organization [facility] & [facility] Address [address] [place] [address] Care Team Providers Care Learning Support Resource Room Teacher Name Role Phone COREY RAMIREZ Primary Care Provider VALERIO COLÓN Hematology/Oncology Assessment No assessment recorded. Plan of Treatment Reminders Order Date Submit Date Provider Last Modified By Organization Details Last Modified Time Details Appointments OV EST 20 025 09:20AM Edfigueroa Addison, DNP, [employer] TEACHER, OPERATOR [employer] Not available Not available Not available Lab None record ed. Referral None record ed. Procedures None record ed. Surgeries None record ed. Imaging None record ed. Medication Orders None record ed. Patient TargetsNo targets recorded. Patient InstructionsNo instructions recorded. Reason for Referral None Reported. Problems Name Problem SNOMED Code Status Onset Date Resolution Date Notes Provider Name and Address Organization Details Recorded Time History of malignant neoplasm of breast 215194202 Active 2024 [place] Hough [facility] & [place] 5 10:25:12 History of bariatric surgical procedure 570437301 Active 2024 [place] Hough [facility] & [place] 5 10:25:09 Thromboph lebitis of superfici al vein of left lower limb 69848073268 417345 Active COREY RAMIREZ NP [address] [place], [address] , [facility] & [place] 5 09:52:56 Lipoma 57353357 Active COREY RAMIREZ NP [address] [facility], [place], [address] , [place] [facility] [place] & [place] 5 09:52:56 Heartburn 15769882 Active 2024 Darrell Addison, DNP, [employer] TE[employer]ER, OPERATOR [employer] [address] [facility], [place], [address] , [place] [facility] [place] & [place] 5 08:46:30 Hyperlipi demia 63109964 Active 2021 Abdoulaye Riddle null[place] [facility] [place] & [place] 4 08:40:14 Essential hypertens ion 32293690 Active 2021 Abdoulaye Riddle null[place] [facility] [place] & [place] 4 08:40:12 Disorder of function of stomach 348322872 Active 2021 Abdoulaye Riddle [place] & [place] 4 08:40:09 Morbid obesity 017795513 Active 2021 Abdoulaye Riddle [place] & [place] 4 08:40:20 Essential hypertens ion 87730918 Active 2021 Abdoulaye Riddle [place] & [place] 4 08:40:12 Hyperlipi demia 38427591 Active 2021 Abdoulaye Riddle [place] [place] & [place] 4 08:40:14 Renal cell carcinoma 806106037 Completed 202109/26/2022 Adry Elías null[place] [facility] [place] & [place] 3 09:54:07 Cat scratch disease 74904307 Completed 202109/26/2022 Abdoulaye Riddle null[place] & [place] 4 09:05:01 Type 2 diabetes mellitus 06842021 Active 2021 Abdoulaye Riddle [place] & [place] 4 08:40:26 Obstructi ve sleep apnea syndrome 15662639 Active 2022 Abdoulaye Riddle [place] [facility] - & [place] 4 08:40:25 Vomiting 474369804 Active 2022 Abdoulaye Riddle [place] [facility] - & [place] 4 08:40:28 Dysphagia 75309678 Active 2022 Abdoulaye Riddle null[place] [facility] - & [place] 4 08:40:11 At increased risk for falls 433551897 Active Abdoulaye Riddle [place] [facility] - & [place] 4 09:04:57 Hyperchol esterolem ia 97032542 Active Abdoulaye Riddle [place] [facility] - & [place] 4 09:05:06 Body mass index 30+ - obesity 708936539 Active Abdoulaye Riddle [place] [facility] - & [place] 4 09:04:59 Obese abdomen 779635339 Active Abdoulaye Riddle null[place] [facility] - & [place] 4 09:05:12 Malignant tumor of kidney 792557754 Active Abdoulaye [place]iddle [place] [facility] [place] & [place] 4 09:05:10 Finding of tobacco use and exposure 056906368 Active Abdoulaye Riddle null[place] [facility] - & [place] 4 09:05:04 Hypertens quentin disorder 02369747 Active Abdoulaye Riddle null[place] [facility] [place] & [place] 4 09:05:08 Chronic periphera l venous hypertens ion 465494488 Active Abdoulaye Riddle null[place] & [place] 4 09:05:02 History of cholecyst ectomy 147082540 Active Abdoulaye Riddle null, [place] [facility] & [place] 4 09:05:05 Cat scratch disease 46095718 Active Abdoulaye Riddle null, [place] [facility] [place] & [place] 4 09:05:01 Unintenti onal weight gain 78838844079 4104 Active 2023 George bobby, [place] [facility] [place] & [place] 5 10:25:21 Rheumatoi d arthritis 78104872 Active 2023 George bobby, [place] [facility] [place] & [place] 5 10:25:18 Problem Notes None recorded. Procedures Surgical History Date Name Laterality Status Provider Name and Address Organization Details Recorded Time 2023 Venipuncture completed Natalie Aguirre [place] [facility] - [place] & [place] 4 10:34:08 2023 Breast Surgery completed Tracy Jc [place] & [place] 5 08:30:20 2022 Cholecystectomy completed Ani Renner [place] [facility] & [place] 3 09:50:28 2022 Starr-en-Y gastrojejunostomy completed Valencia Razo [place] [place] & [place] 3 10:55:18 2022 Abdominal Surgery completed Stephanie Cherry [place] & [place] 3 11:09:39 2022 Other completed COREY RAMIREZ NP [address] [place], [address], [place] [facility] [place] & [place] 3 09:24:33 2020 Cancer Surgery completed Shabnam Razo [place] [facility] - [place] & [place] 3 09:06:20 hysterectomy completed COREY RAMIREZ NP [address] [place], [address], [place] [facility] & [place] 3 15:33:49 esophagogastroduodenoscopy completed Mala Leo [place] [facility] [place] & [place] 3 08:32:11 Mastectomy completed Tracy Jc [place] [facility] [place] & [place] 5 08:39:39 excision of bilatera l breasts completed Ani PEARCE - [facility] & [place] 5 08:31:34 hysterectomy completed Adry PEARCE - [facility] & [place] 3 09:54:07 section completed Adry Bruce [facility] & [place] 3 09:54:07 procedure on kidney completed Bernard PEARCE - [facility] & [place] 3 09:54:07 kidney operation completed Shabnam Bruce [facility] & [place] 2 15:02:18 Tubal Ligation completed Shabnam Bruce [facility] & [place] 2 15:02:25 Imaging Results None recorded. Procedure Notes None recorded. Medical Equipment None Reported. Allergies Allergen ID Allergen Name Allergen Category Reaction Reaction Severity Criticality Documentation Date Start Date Code Code System Note Provider Name and Address Organization Details Recorded Time 138352 Substance with morphinan structure and opioid receptor agonist mechanism of action (substanc e) medicatio n Not available Not available Not available 05/14/2024 78634 9000 SNOMED Stephanie Cherry null, [place] [facility] & [place] 4 12:08:05 54281 Product containin g penicilli n (product) medicatio n rash moderate Not available 08/22/2022 29651 8001 SNOMED Adry Mckinley null, [place] Bruce [facility] & [place] 3 09:54:06 09615 Product containin g penicilli n (product) medicatio n Not available Not available Not available 09/26/2022 26237 8001 SNOMED Marcos Sharp-Bec bernardo null, [place] [facility] & [place] 3 08:02:53 40388 morphine medicatio n anaphylax is hives severe moderate high 09/26/2022 7052 RxNorm Cady Colon null, [place] - [facility] & [place] 5 14:35:40 07790 penicilli n V Not available rash moderate Not available 02/20/2023 7984 RxNorm Shabnam Dung null, [place] - [facility] - [place] & [place] 10:16:08 Medications Name Sig Start Date Stop Date Status Note LastModified by Organization Details LastModified Time celecoxib 200 mg capsule Take 200 mg by oral route. 02/23 completed Not Available Not Available Not Available furosemide 40 mg tablet (40 mg) 02/17 completed Not Available Not Available Not Available pioglitazon e 15 mg tablet TAKE 1 TABLET BY MOUTH ONCE DAILY 12/01 completed Not Available Not Available Not Available anastrozole 1 mg tablet TAKE 1 TABLET BY MOUTH ONCE DAILY. SWALLOW WHOLE WITH A DRINK OF WATER active Not Available Not Available No t Available promethazin e-DM 6.25 mg-15 mg/5 mL oral syrup 12/01 completed Not Available Not Available Not Available clonidine HCl 0.1 mg tablet TAKE 1 TABLET BY MOUTH ONCE DAILY NEEDED FOR 30 DAYS 02/21 completed Not Available Not Available Not Available Carafate 100 mg/mL oral suspension Take 10 mL 4 times a day by oral route for 30 days. 05/17 completed Not Available Not Available Not Available albuterol sulfate 2.5 mg/3 mL (0.083 %) solution for nebulizatio n 2.5 mg by inhalatio n route. 02/10 completed Not Available Not Available Not Available glycopyrrol ate 0.2 mg/mL injection solution 1 mg by injection route. 02/10 completed Not Available Not Available Not Available ibuprofen 800 mg tablet 02/17 completed Not Available Not Available Not Available bisoprolol 10 mg-hydrochl orothiazide 6.25 mg tablet take 1 tablet by mouth once a day 12/01 completed Not Available Not Available Not Available fluconazole 150 mg tablet 01/17 completed Not Available Not Available Not Available fluconazole 200 mg tablet TAKE ONE TABLET BY MOUTH ONCE, MAY REPEAT IN 7 DAYS IF NEEDED 06/05 completed Not Available Not Available Not Available meloxicam 15 mg tablet TAKE 1 TABLET BY MOUTH IN THE MORNING 02/17 completed Not Available Not Available Not Available Diprivan 10 mg/mL intravenous emulsion 400 mg by intraven. route. 02/10 completed Not Available Not Available Not Available lactated Ringers intravenous solution 1000 mL by intraven. route. 02/10 completed Not Available Not Available Not Available bisoprolol 5 mg-hydrochl orothiazide 6.25 mg tablet TAKE 1 TABLET BY MOUTH ONCE DAILY 12/01 completed Not Available Not Available Not Available valsartan 80 mg tablet 80 mg by oral route. 02/10 completed Not Available Not Available Not Available rocuronium 10 mg/mL intravenous solution 100 mg by intraven. route. 02/10 completed Not Available Not Available Not Available nifedipine ER 30 mg tablet,exte nded release TAKE 1 TABLET BY MOUTH ONCE DAILY 02/08 completed Not Available Not Available Not Available ciprofloxac in 500 mg tablet Take 1 tablet every 12 hours by oral route. 01/17 completed Not Available Not Available Not Available tramadol 50 mg tablet TAKE 1 TABLET BY MOUTH EVERY 6 HOURS NEEDED FOR PAIN 08/06 completed Not Available Not Available Not Available acetaminoph en 500 mg tablet 1000 mg by oral route. 02/09 completed Not Available Not Available Not Available spironolact one 25 mg tablet Take 1 tablet by oral route. 08/18 completed Not Available Not Available Not Available hydralazine 20 mg/mL injection solution 10 mg by injection route. 02/10 completed Not Available Not Available Not Available bisoprolol fumarate 10 mg tablet 1/2 tab qd 08/18 completed Not Available Not Available Not Available bisoprolol fumarate 5 mg tablet 01/17 completed Not Available Not Available Not Available meloxicam 7.5 mg tablet active Not Available Not Available Not Available droperidol 2.5 mg/mL injection solution 1.25 mg by injection route. 02/09 completed Not Available Not Available Not Available oxycodone-a cetaminophe n 5 mg-325 mg tablet TAKE 1 TO 2 TABLETS BY MOUTH EVERY 6 HOURS NEEDED. MAX OF 6 TABLETS IN A 24 HOUR PERIOD 08/22 completed Not Available Not Available Not Available diphenhydra mine 50 mg/mL injection solution 25 mg by injection route. 02/10 completed Not Available Not Available Not Available methocarbam ol 750 mg tablet 08/28 completed Not Available Not Available Not Available Protonix 40 mg intravenous solution 40 mg by intraven. route. 02/09 completed Not Available Not Available Not Available Multiple Vitamins tablet 1 {tablet} by oral route. active Not Available Not Available No t Available amlodipine 10 mg tablet Take 1 tablet by oral route. 05/08 completed Not Available Not Available Not Available cyanocobala min (vit B-12) 1,000 mcg/mL injection solution 1000 microgram s by injection route. 02/10 completed Not Available Not Available Not Available hyoscyamine 0.125 mg sublingual tablet DISSOLVE 1 TABLET UNDER THE TONGUE EVERY 6 TO 8 HOURS NEEDED 05/17 completed Not Available Not Available Not Available promethazin e 25 mg/mL injection solution 12.5 mg by injection route. 02/09 completed Not Available Not Available Not Available losartan 25 mg tablet Take 25 mg by oral route. 02/21 completed Not Available Not Available Not Available fentanyl (PF) 50 mcg/mL injection solution 50 microgram s by injection route. 02/09 completed Not Available Not Available Not Available gabapentin 300 mg capsule TAKE 1 CAPSULE BY MOUTH THREE TIMES DAILY FOR 7 DAYS 11/10 completed Not Available Not Available Not Available omeprazole 20 mg capsule,del ayed release TAKE 1 CAPSULE BY MOUTH ONCE DAILY active Not Available Not Available No t Available furosemide 20 mg tablet TAKE 1 TABLET BY MOUTH ONCE DAILY IN THE MORNING (STOP 40 MG DOSING) active Not Available Not Available No t Available gabapentin 100 mg capsule 11/15 completed Not Available Not Available Not Available sodium chloride 0.9 % intravenous solution 1000 mL by intraven. route. 02/09 completed Not Available Not Available Not Available nystatin 100,000 unit/gram topical powder active Not Available Not Available Not Available irbesartan 150 mg tablet Take 150 mg by oral route. 02/21 completed Not Available Not Available Not Available dexamethaso ne sodium phosphate 4 mg/mL injection solution 4 mg by injection route. 02/09 completed Not Available Not Available Not Available lovastatin 20 mg tablet TAKE 1 TABLET BY MOUTH ONCE DAILY AT BEDTIME active Not Available Not Available No t Available scopolamine 1 mg over 3 days transdermal patch 1 mg by transderm . route. 02/09 completed Not Available Not Available Not Available celecoxib 100 mg capsule TAKE 1 CAPSULE BY MOUTH TWICE DAILY FOR 7 DAYS 11/10 completed Not Available Not Available Not Available Quelicin 20 mg/mL injection solution 200 mg by injection route. 02/10 completed Not Available Not Available Not Available ondansetron 4 mg disintegrat ing tablet 11/15 completed Not Available Not Available Not Available IC Green 25 mg solution for injection 25 mg by injection route. 02/09 completed Not Available Not Available Not Available irbesartan 300 mg tablet TAKE 1 TABLET BY MOUTH ONCE DAILY active Not Available Not Available No t Available simethicone 80 mg chewable tablet 80 mg by oral route. 02/09 completed Not Available Not Available Not Available oxycodone 5 mg tablet 11/15 completed Not Available Not Available Not Available midazolam 1 mg/mL injection solution 2 mg by injection route. 02/09 completed Not Available Not Available Not Available hydromorpho ne 2 mg/mL injection syringe 0.5 mg by injection route. 02/09 completed Not Available Not Available Not Available enoxaparin 40 mg/0.4 mL subcutaneou s syringe 40 mg by sub-q route. 02/09 completed Not Available Not Available Not Available dextrose 10 % in water (D10W) intravenous solution 250 mL by intraven. route. 02/10 completed Not Available Not Available Not Available sodium chloride 0.9 % (flush) injection syringe 10 mL by injection route. 02/10 completed Not Available Not Available Not Available hydromorpho ne 1 mg/mL injection syringe 1 mg by injection route. 02/10 completed Not Available Not Available Not Available cyclobenzap rine 5 mg tablet 11/15 completed Not Available Not Available Not Available levofloxaci n 500 mg/100 mL in 5 % dextrose intravenous piggyback 500 mg by intraven. route. 02/09 completed Not Available Not Available Not Available bupivacaine (PF) 0.25 % (2.5 mg/mL) injection solution 30 mL by injection route. 02/09 completed Not Available Not Available Not Available nitrofurant oin monohydrate /macrocryst als 100 mg capsule TAKE 1 CAPSULE BY MOUTH EVERY 12 HOURS FOR 5 DAYS 06/05 completed Not Available Not Available Not Available buprenorphi ne HCl 0.3 mg/mL injection solution 0.3 mg by injection route. 02/09 completed Not Available Not Available Not Available chlorhexidi ne gluconate 0.12 % mouthwash 30 mL by mucous mem route. 02/09 completed Not Available Not Available Not Available Demerol (PF) 25 mg/mL injection syringe 12.5 mg by injection route. 02/09 completed Not Available Not Available Not Available calcium 2 tabs everyday 10/02 completed Not Available Not Available Not Available vitamin E 10/02 completed Not Available Not Available Not Available biotin 500mcg 1qd 11/10 completed Not Available Not Available Not Available iron 08/18 completed Not Available Not Available Not Available One Daily 11/10 completed Not Available Not Available Not Available multivitami n one tablet everyday 02/20 completed Not Available Not Available Not Available lidocaine (PF) 20 mg/mL (2 %) injection solution 10 mL by injection route. 02/10 completed Not Available Not Available Not Available ondansetron HCl (PF) 4 mg/2 mL injection solution 4 mg by injection route. 02/09 completed Not Available Not Available Not Available calcium 500 mg (as carbonate)- vitamin D3 3.125 mcg (125 unit) tablet 1 tablet by oral route. active Not Available Not Available No t Available Humalog KwikPen (U-100) Insulin 100 unit/mL subcutaneou s 1 unt by sub-q route. 02/10 completed Not Available Not Available Not Available omeprazole 20 mg tablet,chiot yed release TAKE 1 TABLET BY MOUTH ONCE DAILY FOR 30 DAYS 08/18 completed Not Available Not Available Not Available diclofenac 1 % topical gel PLACE 2 TO 4 GRAMS TOPICALLY ON SKIN OF AFFECTED AREAS 2 TIMES A DAY active Not Available Not Available No t Available Bioflex 09/09 completed Not Available Not Available Not Available omeprazole magnesium 20 mg capsule,del ayed release Take 20 mg by oral route. 02/21 completed Not Available Not Available Not Available Hair, Skin and Nails Advanced 3.3 mg iron-25 mcg tablet 1 tablet by oral route. 08/15 completed Not Available Not Available Not Available Multi For Her 18 mg iron-600 mcg-80 mcg tablet Take 1 tablet by oral route. 02/08 completed Not Available Not Available Not Available Farxiga 10 mg tablet Take 1 tablet by oral route. 02/23 completed Not Available Not Available Not Available morphine 4 mg/mL intravenous syringe 4 mg by intraven. route. 02/09 completed Not Available Not Available Not Available Emergen-C Immune Plus 02/01 completed Not Available Not Available Not Available Bridion 100 mg/mL intravenous solution 500 mg by intraven. route. 02/09 completed Not Available Not Available Not Available Glucosamine Chondroitin 3 tabs everyday 02/02 completed Not Available Not Available Not Available Multi For Him (no iron) 400 mcg-40 mcg capsule Take by oral route. 05/03 completed Not Available Not Available Not Available Vitals Date Recorded Body height Body mass index (BMI) Body weight Body temperature Oxygen saturation Oxygen saturation in Arterial blood by Pulse oximetry Heart rate Systolic blood pressure Diastolic blood pressure Provider Name and Address Organization Details Last Updated DateTime 5 162.56 cm 35.4 kg/m2 70773.0 3 g 97.3 [degF] 97 % 97 % 66 /min 127 mm[Hg] 63 mm[Hg] [facility] [place] [facility] & [place] 15:28:07 Social History Question Answer Notes LastModified by Organizat ion Details LastModified Time Tobacco Smoking Status Never Smoker Not Available [facility] 01/31/2023 09:12:06 Do You Have An Advance Directive? No [email or web address] Information n ot available 05/24/2024 What Is Your Level Of Alcohol Consumption? None CHART_MERGE Information not available 01/31/2023 Do You Wear A Helmet When Biking? Yes [email or web address] Information not available 05/24/2024 Are You Blind Or Do You Have Difficulty Seeing? No CHART_MERGE Information n ot available 01/31/2023 What Is Your Level Of Caffeine Consumption? None Information not available 10/02/2023 In The 14 Days Before Symptom Onset, Have You Had Close Contact With A Laboratory-confirm ed COVID-19 While That Case Was Ill? No [email or web address] Information n ot available 05/24/2024 In The 14 Days Before Symptom Onset, Have You Had Close Contact With A Person Who Is Under Investigation For COVID-19 While That Person Was Ill? No [email or web address] Information not available 05/24/2024 Have You Been To An Area Known To Be High Risk For COVID-19? No [email or web address] Information not available 05/24/2024 Are You Currently Employed? No [email or web address] Information not available 05/24/2024 Are You Deaf Or Do You Have Serious Difficulty Hearing? No [email or web address] Information not available 05/24/2024 What Type Of Diet Are You Following? REGULAR [email or web address] Information n ot available 05/24/2024 Have You Processed Blood Or Body Fluids From An Ebola Virus Disease Patient Without Appropriate PPE? No [email or web address] Information not available 05/24/2024 Do You Reside In Or Have You Traveled To An Area Where Ebola Virus Transmission Is Active? No [email or web address] Information not available 05/24/2024 Have There Been Any Changes To Your Family Or Social Situation? No [email or web address] Information no t available 05/24/2024 What Is The Fluoride Status Of Your Home? Unknown [email or web address] Information not available 05/24/2024 Are There Any Guns Present In Your Home? No [email or web address] Information not available 05/24/2024 Have You Recently Or Are You Planning To Travel To An Area With Zika Virus? No [email or web address] Information not available 05/24/2024 Do You Use Insect Repellent Routinely? Yes [email or web address] Information not available 05/24/2024 Do You Feel Safe At Home? Yes Information not available 05/24/2024 Do You Have A Medical Power Of Customer Care Manager? No [email or web address] Information not available 05/24/2024 What Was The Date Of Your Most Recent Tobacco Screening? 02/21/2025 [email or web address] Information not available 02/21/2025 Do You Have Any Pets? Yes Information not available 05/24/2024 What Is Your Relationship Status? [email or web address] Information not available 01/17/2025 Do You Use Your Seat Belt Or Car Seat Routinely? Yes [email or web address] Information not available 05/24/2024 Do You Have Smoke And Carbon Monoxide Detectors In Your Home? Yes [email or web address] Information not available 05/24/2024 Are You Passively Exposed To Smoke? No [email or web address] Information no t available 05/24/2024 Do You Or Have You Ever Used Smokeless Tobacco? Never Used Smokeless Tobacco CHART_MERGE Information not available 01/31/2023 How Much Tobacco Do You Smoke? No CHART_MERGE Information not available 01/31/2023 Do You Feel Stressed (tense, Restless, Nervous, Or Anxious, Or Unable To Sleep At Night)? [id number] [email or web address] Information not available 05/24/2024 Do You Use Any Illicit Or Recreational Drugs? No CHART_MERGE Information not available 01/31/2023 Do You Use Sunscreen Routinely? Yes Information not available 05/24/2024 Has Tobacco Cessation Counseling Been Provided? No [email or web address] Information not available 10/02/2023 How Many Years Have You Smoked Tobacco? 0 CHART_MERGE Information not available 01/31/2023 Are You Currently In School? No [email or web address] Information not available 05/24/2024 Do You Or Have You Ever Used Any Other Forms Of Tobacco Or Nicotine? No [email or web address] Information not available 10/02/2023 Sex: Female Functional Status Question Answer Note LastModified by Organizat ion Details LastModified Time Do you have difficulty walking or climbing stairs? No [email or web address] Information not available 05/24/2024 Do you have transportation difficulties? No [email or web address] Information not available 05/24/2024 Are you able to walk? YESWOREST [email or web address] Information not available 05/24/2024 Do you have difficulty doing errands alone? No Information not available 05/24/2024 Are you able to care for yourself? Yes [email or web address] Information not available 05/24/2024 Do you have difficulty dressing or bathing? No [email or web address] Information not available 05/24/2024 What is your exercise level? Moderate [email or web address] Information not available 07/31/2023 Mental Status Question Answer Note LastModified by Organization D etails LastModified Time Do you have difficulty concentrating, remembering or making decisions? No [email or web address] Information no t available 05/24/2024 Family History Relationship Description Onset Age of this Age Resolved Age Notes LastModified by Organization Details LastModified Time Sister Diabetes mellitus [email or web address] Not available 02/21 15:09:56 Sister Hypertensive disorder [email or web address] Not available 2022 09:54:07 Sister Multiple myeloma [email or web address] Not available 02/21 15:09:56 Sister Diabetes mellitus [email or web address] Not available 02/21 15:09:56 Sister Crohn's disease [email or web address] Not available 02/21 15:09:56 Sister Essential hypertension [email or web address] Not available 15:09:56 Sister Essential hypertension [email or web address] Not available 15:09:56 Sister Malignant tumor of cervix [email or web address] Not available 02/21 15:09:56 Sister Autoimmune disease pt. added direct ly (06/03) API-13 Not available 06/03/2024 11:15:44 Maternal Grandfather Diabetes mellitus [email or web address] Not available 02/21 15:09:56 Maternal Grandfather Disorder of endocrine system pt. added direct ly (06/03) API-13 Not available 06/03/2024 11:14:56 Maternal Grandmother Heart disease [email or web address] Not available 2022 09:54:07 Maternal Grandmother Myocardial infarction pt. added direct ly (06/03) API-13 Not available 06/03/2024 11:15:12 Father Malignant neoplasm of lung [email or web address] Not available 02/21 15:09:56 Father Malignant neoplasm of lung [email or web address] Not available 02/21 15:09:56 Brother Chronic obstructive pulmonary disease [email or web address] Not available 2022 09:54:07 Mother Motor vehicle accident victim deceas ed [email or web address] Not available 02/21/2025 15:09:56 Paternal Uncle Myocardial infarction pt. added direct ly (06/03) API-13 Not available 06/03/2024 11:14:20 Paternal Uncle Heart disease [email or web address] Not available 2024 08:36:57 Medical History Condition Response Diabetes N Muscle, Joint, or Bone Problems Y Obesity Y Arthritis Y Breast Cancer Y Cancer Y Kidney or Bladder Problems N Skin Problems Y Anemia Y High Cholesterol Y Heart Disease Y Obstructive Sleep Apnea Y Hypertension Y Gynecological History Statement/Question Response Menses Monthly Y Abnormal Pap Y Duration of Flow (days) 5 Age at Menarche 12 Flow Moderate Date of LMP 11/13/2011 Sexually Active? N Obstetrics History GPAL:G 0 P 0 0 0 0 Immunizations Vaccine Type Date Status Note Provider Nam e and Address Organization Details Recorded Time Tdap 3 completed COREY RAMIREZ NP [address] [place] [address], [id number], [facility] - [facility] & [place] 01/06/2023 15:33:41 pneumococcal polysaccharide PPV23 3 completed COREY RAMIREZ NP [address] [place] [address], [id number], [place] - [facility] & [place] 01/06/2023 15:33:41 COVID-19, mRNA, LNP-S, PF, 100 mcg/0.5mL dose or 50 mcg/0.25mL dose 1 completed Not Available [facility] 03/06/2023 22:25:09 COVID-19, mRNA, LNP-S, PF, 100 mcg/0.5mL dose or 50 mcg/0.25mL dose 1 completed Not Available [facility] 03/06/2023 22:25:09 COVID-19, mRNA, LNP-S, PF, 100 mcg/0.5mL dose or 50 mcg/0.25mL dose 1 completed Not Available [facility] 03/06/2023 22:25:09 Influenza, split virus, quadrivalent, preservative 1 completed Not Available [facility] 03/06/2023 22:25:09 Influenza, split virus, quadrivalent, PF 3 completed COREY RAMIREZ NP [address] [place], [id number], [place] - [facility] - [place] & [place] 07/31/2023 16:21:07 zoster recombinant 3 completed Stephanie Cherry null, [place] - [facility] - [place] & [place] 05/14/2024 12:07:51 zoster recombinant 3 completed Stephanie Cherry null, [place] - [facility] [place] & [facility] 05/14/2024 12:07:51 Influenza, recombinant, trivalent, PF 4 completed Tracy Jc null, [place] - [facility] - [place] & [place] 10/24/2024 10:35:05 Influenza, split virus, quadrivalent, PF 2 completed COREY RAMIREZ NP [address] [place], [address], [place] - [facility] - [place] & [place] 10/05/2022 10:02:41 Past Encounters Encounter ID Performer Location Encounter Start Date Encounter Closed Date Diagnosis/Indication Diagnosis SNOMED-CT Code Diagnosis ICD10 Code Diagnosis Note [id number] Darrell Addison, DNP, [employer], OPERATOR [employer] [address] [facility] [address] [place] [address] 02/17/2025 08:22:28 02/17/2025 09:14:24 History of bariatric surgical procedure 498419056 Z98.84 Intentiona l weight loss 237589892 R63.8 History of gastrectomy 469417433 Z90.3 Advised qid intake 50% protein 2001-0577 calories/d y less than 100 carbs/dyLo ng discussion today of [employer] results including PBF(percen t body fat) SMM (skeletal muscle mass) Visceral fat level level BMR Segmental Fat Analysis and Segmental Lean Analysis.E ncouraged pt to take minimal calories as per BMR and to anticipate changes in SMM and PBF values not just total weight.Fol low-up with Repeat MEÑO in 3mth suggested. I did offer dietitian visit, but pt declines Patient is status post bariatric surgery and at increased risk for vitamin deficienci es and malnutriti on. Bariatric vitamin panel ordered today. Patient will be contacted to correct any vitamin deficienci es. At [facility] risk of nutritional deficit 541933503 Z91.89 Essential hypertension 11742012 I10 Hyperlipidemia 79248937 E78.5 Obstructiv e sleep apnea syndrome 14534486 G47.33 Type 2 vahe betes mellitus 02939130 E11.9 Heartburn 65296236 R12 GERD-patie nt was reassured. We discussed lifestyle modificati ons in patient-di rected therapy which are designed to decrease distal esophageal acid exposure. Plan is to restart proton pump inhibitor. Other lifestyle modificati ons include elevating the head of the bed on 15 cm of blocks or sleep on a wedge-shap ed bolster. Patient was encouraged to consume smaller meals and do not eat for 3 hours prior to lying recumbent. Ultimately patient has been advised to avoid large, high fat meals and avoid foods that may aggravate the problem. [id number] COREY RAMIREZ NP [facility] [address] [address] 02/21/2025 15:09:46 02/21/2025 15:54:28 Essential hypertension 24089577 I10 educated on goal of less than 130/90advi sed low sodium diet, healthy lifestyle including exercise as ableContin ue with her irbesartan , Lasix 20 mg; as needed clonidinep reviously stopped bisoprolol after hospitaliz ation where her oxygen and heart rate dropped very lowER if any symptoms such as chest pain, shortness of breath Health Concerns Section Related Observation LastModified by Organization Detai ls LastModified Time None Recorded Concern Status LastModified by Organization Details LastModified Time None Recorded Payers Encounter Date Sequence Insurance Name Policy Number Policy Bedoya Covered Member ID Bedoya Member ID Guarantor Name 02/21/2025 1 [employer]: MANDY MANZANO OF [place] [id number] Chiqui Curran [id number] Chiqui Bina Notes Date Note Type Note Provider Name and Address Organization Details Recorded Time 02/21/2025 text/html 64-year-old karla frank who presents for blood pressure follow-up. She brought her blood pressure log with her today. Has improved much since January. Systolic that was previously in the 150s now in the 120s and 130s. Was able to control her stress. Has had to use clonidine 2 or 3 days right after last appointment but otherwise has not had to use. Denies any chest pain shortness of breath or swelling. She was seen by a bariatric surgeon on Monday awaiting lab results. She will see provider in mainly for sleep apnea to see how much oxygen she needs at night. Has appointment with hot room attendant for left foot issues. She will have a follow-up April 01 with her oncologist and surgeon who plans to do surgery to remove extra tissue that has dropped After masectomy on April 18. COREY RAMIREZ NP [address] [place] [address], [id number], [facility] & [place] 02/21/2025 16:54:35 OBGyn Episode No OBEpisode recorded.
--- OUTSIDE RECORDS SUMMARY | 2025-03-14 20:06 | XMS_ITS | Data Portability ---
Author Organization [facility] CLEOPATRA [place] CLOSED Address [address] [place] [address] Care Team Providers Care General Road Supervisor Name Role Phone MODESTO MELCHORIAN Primary Care Provider Assessment No assessment recorded. Plan of Treatment Reminders Order Date Submit Date Provider Last Modified By Organization Details Last Modified Time Details Appointments None recorded. Lab urinalysis panel, auto 2020 021 [email or web address] [facility] [address], [address], [place], [address], 14:47:26 urinalysis panel, auto 2020 021 [email or web address] [facility], [address], [place], [address], 14:26:50 Referral None recorded. Procedures None recorded. Surgeries None recorded. Imaging None recorded. Medication Orders None recorded. Patient TargetsNo targets recorded. Patient Instructions Encounter Date Encounter Id Patient Instructions Last Modified By Organization Details Last Modified Time 07/14/2021 [id number] She brought in C T scan thorax for review yet CT abdomen was not available. Reported findings are that of a 4.6 cm right lower pole renal mass suspicious for cancer. General discussion of treatment options with patient and and recommended that they retrieve the CT scan of the abdomen and return in 3 weeks for further discussion. Should we proceed with surgery I believe a flank incision would be the preferred approach due to her body habitus [email or web address] Not available 07/14/2021 14:26:50 08/05/[id number] images review ed extensively. She has a suspicious mass that is on the posterior right kidney. There is a simple appearing cyst in the lower pole of the left kidney which otherwise appears normal. It is predominantly exophytic without remarkably significant endophytic features. I believe this has a highly likelihood of representing a renal cell carcinoma. We have again discussed management options and we will now proceed with right robotic-assisted laparoscopic partial nephrectomy recognizing that total nephrectomy could prove to be required due to intraoperative findings and that conversion to open procedure could be required predominantly due to body habitus. I believe she would be best in the FULL FLANK position for this procedure. She has had absolutely no cardiac history or symptoms, no history of TIAs and no pulmonary symptoms. She's never had a DVT. Her blood pressure is well controlled. We did also discussed the option of cryotherapy and the patient is not inclined to proceed with this approach. She and her were advised of all potential risks and complications and desire to proceed as stated. She will bring her disc images in the day of the procedure. [email or web address] Not available 08/05/2021 14:19:16 09/01/2021 [id number] Doing well, heath moore removed, discuss pathology And spoke with Dr. Melchor about the same on phone. Discussed need for close follow-up and serial imaging. I do not feel that adjuvant therapy or additional imaging is necessary at this point. I will see her back in 1 month and thereafter she may choose to have further follow-up in [place] with Dr. Seymour at her election Cc Dr. Seymour and Dr. Ruiz song Not available 09/01/2021 12:00:20 09/30/2021 [id number] She has recovere d nicely She apparently didn't pay a visit with oncologist who plans to obtain scans and see her again in November Of told her there is no indication for adjuvant therapy And that her prognosis is very good We will see her back as needed and she will follow with Dr. Seymour and Ruiz song Not available 09/30/2021 14:48:17 Reason for Referral None Reported. Results Created Date Observation Date Name Description Value Unit Range Abnormal Flag Note LastModifiedBy Organization Detail LastModifiedTime 07/14/20 21 07/14/2021 urina lysis panel , auto Unknown Analyte Clean Catch Not Available [facility] [address], [place], [address], 07/14/2021 13:54:52 07/14/2007/14/2021 urina lysis panel , auto Unknown Analyte Yellow Not Available [facility] [address], [place], [address], 07/14/2021 13:54:52 07/14/2007/14/2021 urina lysis panel , auto Unknown Analyte Clear Not Available [facility] [address], [place], [address], 07/14/2021 13:54:52 07/14/2007/14/2021 urina lysis panel , auto Unknown Analyte 1.015 Not Available [facility] [address], [place], [address], 07/14/2021 13:54:52 07/14/2007/14/2021 urina lysis panel , auto Unknown Analyte 7.0 Not Available [facility] [address], [place], [address], 07/14/2021 13:54:52 07/14/2007/14/2021 urina lysis panel , auto Unknown Analyte Negati ve Not Available [facility] [address] [facility] [address] [place], [address], 07/14/2021 13:54:52 07/14/2007/14/2021 urina lysis panel , auto Unknown Analyte Negati ve Not Available [facility] [address], [place], [address], 07/14/2021 13:54:52 07/14/2007/14/2021 urina lysis panel , auto Unknown Analyte Negati ve Not Available [facility] [address] [place], [address], 07/14/2021 13:54:52 07/14/20 21 07/14/2021 urina lysis panel , auto Unknown Analyte Normal Not Available [facility] [address], [place], [address], 07/14/2021 13:54:52 07/14/2007/14/2021 urina lysis panel , auto Unknown Analyte Negati ve Not Available [facility] [address], [place], [address], 07/14/2021 13:54:52 07/14/2007/14/2021 urina lysis panel , auto Unknown Analyte Normal Not Available [facility] [address], [place], [address], 07/14/2021 13:54:52 07/14/20 21 07/14/2021 urina lysis panel , auto Unknown Analyte Negati ve Not Available [facility] [address], [place], [address], 07/14/2021 13:54:52 07/14/2007/14/2021 urina lysis panel , auto Unknown Analyte Negati ve Not Available [facility] [address], [place], [address], 07/14/2021 13:54:52 09/30/20 21 09/30/2021 urina lysis panel , auto Unknown Analyte Clean Catch Not Available [facility] [address], [place], [address], 09/30/2021 14:18:58 09/30/20 21 09/30/2021 urina lysis panel , auto Unknown Analyte Yellow Not Available [facility] [address], [place], [address], 09/30/2021 14:18:58 09/30/20 21 09/30/2021 urina lysis panel , auto Unknown Analyte Clear Not Available [facility] [address], [place], [address], 09/30/2021 14:18:58 09/30/20 21 09/30/2021 urina lysis panel , auto Unknown Analyte 1.015 Not Available [facility] [address], [place], [address], 09/30/2021 14:18:58 09/30/20 21 09/30/2021 urina lysis panel , auto Unknown Analyte 7.0 Not Available [facility] [address], [place], [address], 09/30/2021 14:18:58 09/30/20 21 09/30/2021 urina lysis panel , auto Unknown Analyte Negati ve Not Available [facility] [address], [place], [address], 09/30/2021 14:18:58 09/30/20 21 09/30/2021 urina lysis panel , auto Unknown Analyte Negati ve Not Available [facility] [address], [place], [address], 09/30/2021 14:18:58 09/30/20 21 09/30/2021 urina lysis panel , auto Unknown Analyte Negati ve Not Available [facility] [address], [place], [address], 09/30/2021 14:18:58 09/30/20 21 09/30/2021 urina lysis panel , auto Unknown Analyte Normal Not Available [facility] [address], [place], [address], 09/30/2021 14:18:58 09/30/20 21 09/30/2021 urina lysis panel , auto Unknown Analyte Negati ve Not Available [facility] [address], [place], [address], 09/30/2021 14:18:58 09/30/20 21 09/30/2021 urina lysis panel , auto Unknown Analyte Normal Not Available [facility] [address], [place], [address], 09/30/2021 14:18:58 09/30/20 21 09/30/2021 urina lysis panel , auto Unknown Analyte Negati ve Not Available [facility] [address], [place], [address], 09/30/2021 14:18:58 09/30/20 21 09/30/2021 urina lysis panel , auto Unknown Analyte Negati ve Not Available [facility] [address], [place], [address], 09/30/2021 14:18:58 07/14/20 21 06/11/2021 CT, chest , w/wo contr ast No observ ation record ed. [email or web address], [place], [address], 07/30/2021 11:56:31 07/14/20 21 06/11/2021 CT, abdom en + pelvi s, w/wo contr ast No observ ation record ed. [facility] Not Available 2020 16:02:28 07/14/20 21 07/06/2021 CT, abdom en + pelvi s, w/wo contr ast No observ ation record ed. BARCODE Not Available 2020 16:02:28 Result Notes None recorded. Procedures Surgical History Date Name Laterality Status Provider Name and Address Organization Details Recorded Time 08/23/20 21 PARTIAL NEPHRECTOMY, ROBOT ASSISTED LAPAROSCOPIC, WITH INTRA-OPERATIVE ULTRASOUND (SURG) completed COSME GARZA MD [address] [place], [address], [place] [facility] 09/01/2021 11:27:54 delivery completed Vicky Cosmen [facility] 07/14/2021 13:48:41 Hysterectomy completed Vicky Cosmen [facility] 07/14/2021 13:48:52 Other completed Vicky Kimberlyn [facility] 07/14/2021 13:49:05 Imaging Results Imaging Date Name Status LastModified by Organiz ation Details LastModified Time 06/11/2021 CT, chest, w/wo contrast completed [address], [place], [address], 07/30/2021 11:56:31 06/11/2021 CT, abdomen + pelvis, w/wo contrast completed [facility] Information not available 07/14/2021 16:02:28 07/06/2021 CT, abdomen + pelvis, w/wo contrast completed [facility] Information not available 07/14/2021 16:02:28 Procedure Notes None recorded. Medical Equipment None Reported. Allergies Allergen ID Allergen Name Allergen Category Reaction Reaction Severity Criticality Documentation Date Start Date Code Code System Note Provider Name and Address Organization Details Recorded Time 454200 Product containin g penicilli n (product) medicatio n Not available Not available Not available 07/14/2021 10464 8001 SNOMED [facility] 13:47:24 474085 morphine medicatio n Not available Not available Not available 07/14/2021 7052 RxNorm [facility] 13:47:29 Medications Name Sig Start Date Stop Date Status Note LastModified by Organization Details LastModified Time pioglitazon e 15 mg tablet TAKE 1 TABLET BY MOUTH ONCE DAILY active Not Available Not Available No t Available bisoprolol 10 mg-hydrochl orothiazide 6.25 mg tablet TAKE 1 TABLET BY MOUTH ONCE DAILY active Not Available Not Available No t Available fluconazole 150 mg tablet TAKE 1 TABLET BY MOUTH AFTER COMPLETIO N OF ANTIBIOTI CS AND THEN 3 DAYS LATER 07/14 completed Not Available Not Available Not Available sulfamethox azole 800 mg-trimetho prim 160 mg tablet TAKE 1 TABLET BY MOUTH TWICE DAILY 07/14 completed Not Available Not Available Not Available oxycodone-a cetaminophe n 5 mg-325 mg tablet 1-2 tabs po q 6 hours prn 09/30 completed Not Available Not Available Not Available mupirocin 2 % topical ointment APPLY TOPICALLY A SMALL AMOUNT TO THE AFFECTED AREA THREE TIMES A DAY active Not Available Not Available No t Available lovastatin 20 mg tablet TAKE 1 TABLET BY MOUTH ONCE DAILY FOR 90 DAYS active Not Available Not Available No t Available Vitals Date Recorded Body height Body mass index (BMI) Body weight Provider Name and Address Organization Details Last Updated DateTime 07/14/2021 167.64 cm 42 kg/m2 965897.02 abdoul Vicky Sofia [facility] 07/14/2021 13:47:15 Date Recorded Body height Body mass index (BMI) Body weight Provider Name and Address Organization Details Last Updated DateTime 08/05/2021 167.64 cm 42 kg/m2 061427.02 abdoul Ramirezng [facility] 08/05/2021 13:28:08 Date Recorded Body height Body mass index (BMI) Body weight Provider Name and Address Organization Details Last Updated DateTime 09/01/2021 167.64 cm 42 kg/m2 680406.02 abdoul Arizmendi [facility] 09/01/2021 10:33:17 Date Recorded Body height Body mass index (BMI) Body weight Provider Name and Address Organization Details Last Updated DateTime 09/30/2021 167.64 cm 42 kg/m2 989236.02 abdoul Vicky Sofia [facility] 09/30/2021 14:14:44 Social History Question Answer Notes LastModified by Organizat ion Details LastModified Time Tobacco Smoking Status [facility] 07/14/2021 13:48:24 What Is Your Level Of Alcohol Consumption? None Information not available 07/14/2021 What Is Your Relationship Status? Information not available 07/14/2021 Sex: Unknown Functional Status None recorded. Mental Status None recorded. Family History Relationship Description Onset Age of this Age Resolved Age Notes LastModified by Organization Details LastModified Time Unspecified Relation Family history of malignant neoplasm [email or web address] Not available 2020 13:48:10 Medical History Condition Response Anesthesia Complications Y Anemia Y False Teeth Y Hypertension Y Gynecological HistoryNo gynecological history recorded. Obstetrics History GPAL:G 0 P 0 0 0 0 Past Encounters Encounter ID Performer Location Encounter Start Date Encounter Closed Date Diagnosis/Indication Diagnosis SNOMED-CT Code Diagnosis ICD10 Code Diagnosis Note [id number] COSME GARZA MD UROLOGY [facility] [address] [address] 07/14/2021 12:53:45 07/14/2021 14:30:27 Renal mass 344002440 N28.89 [id number] COSME GARZA MD UROLOGY [facility] [address] [address] 08/05/2021 13:05:18 08/05/2021 14:23:59 Renal mass 828507250 N28.89 Right Simple renal cyst 961328 09 N28.1 Left [id number] COSME GARZA MD UROLOGY [facility] [address] [address] 09/01/2021 10:06:39 09/01/2021 11:34:06 Simple renal cyst 60472702 N28.1 Left Clear cell carcinoma of kidney 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 C64.9 pT1a NXMX Grade II 3.8 cm clear renal call carcinoma with focal + margin (visual intraop findings suggest negative margins) [id number] COSME GARZA MD UROLOGY [facility] [address] [address] 09/30/2021 13:41:50 09/30/2021 14:47:00 Clear cell carcinoma of kidney 587804515 C64.9 pT1a NXMX Grade II 3.8 cm clear renal call carcinoma with focal + margin (visual intraop findings suggest negative margins) Simple renal cyst 422865 09 N28.1 Left Health Concerns Section Related Observation LastModified by Organization Detai ls LastModified Time None Recorded Concern Status LastModified by Organization Details LastModified Time None Recorded Advance Directives Directive None Recorded Payers Encounter Date Sequence Insurance Name Policy Number Policy Bedoya Covered Member ID Bedoya Member ID Guarantor Name 07/14/2021 1 [place] [id number] Chiqui Curran [id number] Chiqui Avitia Tincher 08/05/2021 1 [place] [id number] Chiqui L Tincher [id number] Chiqui L Tincher 09/01/2021 1 [place] [id number] 9 Chiqui Avitia Tincher [id number] Chiqui L Tincher 09/30/2021 1 [place] [id number] 9 Chiqui Avitia Tincher [id number] Chiqui Curran Notes Date Note Type Note Provider Name and Address Organization Details Recorded Time 07/14/2021 text/html 61 yo female new pt referred by Dr. Seymour due to a right renal lesion. Pt states that the lesion was initially found in May followed right flank pain, CT revealed a solid right renal mass measuring 4.6 x 3.3cm, she had a CT of the chest on 07/06 which confirmed a noncalcified nodule in the right lower long and a 6mm nodule in the left upper pole. She continues to have intermittent right flank pain, she denies gross hematuria, no additional voiding complaints. Full PMHx and ROS reviewed and attached - significant comorbid disease is noted. COSME GARZA MD [address] [place] [address], [phone], [facility] 07/14/2021 14:27:39 08/05/2021 text/html 61 yo female ret urns after three weeks for further discussion of treatment options for right renal mass.At her last visit CT of abdomen and pelvis was not available.She brings this disc in for review today. She has had intermittent right flank pain. She has no new complaints. COSME GARZA MD [facility] [place], [address], [facility] 08/05/2021 14:19:25 09/01/2021 text/html 61 yo female her e today for follow up with h/o right renal mass. She is here today s/p RAL partial right nephrectomy last week. Her path showed a pT1a NXMX 3.8 cm clear renal call carcinoma with focal + margin. Intraoperative findings revealed comfort visually satisfying margins with normal-appearing renal parenchymal tissue at cut margin. She is doing very well. She has no complaints or concerns today. She has some back pain and expected discomfort. No GI complaints, bowel fxn normal. COSME GARZA MD [address] [place] [address], [phone], [facility] 09/01/2021 12:01:25 09/30/2021 text/html 61 yo female ret urns for a 1 mo f.u visit previously seen due to a right renal mass-s/p RAL partial right nephrectomy performed 08/23/21 pT1a NXMX clear cell carcinoma w focal + margins. She denies recent discomfort but does have numbness in her right side. She denies recent gross hematuria, no additional voiding complaints. COSME GARZA MD [address] [place] [address], [phone], [facility] 09/30/2021 14:48:24 OBGyn Episode No OBEpisode recorded.
--- OUTSIDE RECORDS SUMMARY | 2025-03-14 20:07 | XMS_ITS | Continuity of Care Document ---
Author Organization [facility] & [facility] Address [address] [facility] [place] [address] Care Team Providers Care Structural Steel Fitter Name Role Phone COREY RAMIREZ Primary Care Provider NELLIE COLÓN Hematology/Oncology Assessment No assessment recorded. Plan of Treatment Reminders Order Date Submit Date Provider Last Modified By Organization Details Last Modified Time Details Appointments OV EST 20 2024 09:20A M Darrell Addison, DNP, GLOBAL PROGRAM MANAGER, SPECIAL AGENT-C Not available Not available Not available Lab None recorded. Referral None recorded. Procedures None recorded. Surgeries None recorded. Imaging None recorded. Medication Orders clonidine HCl 0.1 mg tablet [address] [place] [address] [address], [address] [place], [address], 02/21/2025 15:37:22 Patient TargetsNo targets recorded. Patient InstructionsNo instructions recorded. Reason for Referral None Reported. Problems Name Problem SNOMED Code Status Onset Date Resolution Date Notes Provider Name and Address Organization Details Recorded Time History of malignant neoplasm of breast 657126887 Active 2024 [place] [facility] & [place] 5 10:25:12 History of bariatric surgical procedure 546413130 Active 2024 [place] H[place] KERRI [facility] & [place] 5 10:25:09 Thromboph lebitis of superfici al vein of left lower limb 71511863380 122868 Active COREY RAMIREZ NP [address] [place], [address] , [place] & [place] 5 09:52:56 Lipoma 83626583 Active COREY RAMIREZ, LAURA [address] [facility], [place], [address] , [place] & [place] 5 09:52:56 Heartburn 16310716 Active 2024 Darrell Addison, DNP, GLOBAL PROGRAM MANAGER, SPECIAL AGENT-C [address] [facility], [place], [address] , [place] & [place] 5 08:46:30 Hyperlipi demia 16747666 Active 2021 Abdoulaye Riddle [place] & [place] 4 08:40:14 Essential hypertens ion 07175549 Active 2021 Abdoulaye Riddle [place] 4 08:40:12 Disorder of function of stomach 714515054 Active 2021 Abdoulaye Riddle [place] 4 08:40:09 Morbid obesity 971966147 Active 2021 Abdoulaye Riddle [place] 4 08:40:20 Essential hypertens ion 61306305 Active 2021 Abdoulaye Riddle [place] 4 08:40:12 Hyperlipi demia 93432936 Active 2021 Abdoulaye Riddle [place] 4 08:40:14 Renal cell carcinoma 010762555 Completed 202109/26/2022 Adry Elías [place] & [place] 3 09:54:07 Cat scratch disease 70388758 Completed 202109/26/2022 Abdoulaye Riddle [place] 4 09:05:01 Type 2 diabetes mellitus 79617934 Active 2021 Abdoulaye Riddle null, [place] - [facility] - [facility] & [place] 4 08:40:26 Obstructi ve sleep apnea syndrome 06281124 Active 2022 Abdoulaey Riddle null[place] - [facility] & [place] 4 08:40:25 Vomiting 900077904 Active 2022 Abdoulaye Riddle null[place] - [facility] & [place] 4 08:40:28 Dysphagia 09155978 Active 2022 Abdoulaye Riddle null[place] - [facility] & [place] 4 08:40:11 At increased risk for falls 962114498 Active Abdoulaye Riddle null, [place] - [facility] - [facility] & [place] 4 09:04:57 Hyperchol esterolem ia 40513156 Active Abdoulaye Riddle null[place] - [facility] & [place] 4 09:05:06 Body mass index 30+ - obesity 189487185 Active Abdoulaye Riddle null, [place] - [facility] & [place] 4 09:04:59 Obese abdomen 387112512 Active Abdoulaye Riddle null[place] [facility] & [place] 4 09:05:12 Malignant tumor of kidney 361743656 Active Abdoulaye Riddle [place] [facility] & [place] 4 09:05:10 Finding of tobacco use and exposure 176191918 Active Abdoulaye Riddle null[place] [facility] & [place] 4 09:05:04 Hypertens quentin disorder 76261206 Active Abdoulaye Riddle null, [place] [facility] & [place] 4 09:05:08 Chronic periphera l venous hypertens ion 732264961 Active Abdoulaye Riddle null, [place] [facility] & [place] 4 09:05:02 History of cholecyst ectomy 712581853 Active Abdoulaye Riddle null[place] [facility] [facility] & [place] 4 09:05:05 Cat scratch disease 71899681 Active Abdoulayeyovany Cabezasson null, [place] [facility] & [place] 4 09:05:01 Unintenti onal weight gain 93398192049 4104 Active 2023 George Garcia null, [place] & [place] 5 10:25:21 Rheumatoi d arthritis 06079537 Active 2023 George Garcia null, [place] [facility] & [place] 5 10:25:18 Problem Notes None recorded. Procedures Surgical History Date Name Laterality Status Provider Name and Address Organization Details Recorded Time 2023 Venipuncture completed Natalie Aguirre [place] & [place] 4 10:34:08 2023 Breast Surgery completed Tracy Jc [place] & [place] 5 08:30:20 2022 Cholecystectomy completed Ani Renner [place] & [place] 3 09:50:28 2022 Starr-en-Y gastrojejunostomy completed Valencia Razo [place] & [place] 3 10:55:18 2022 Abdominal Surgery completed Stephanie Cherry [place] & [place] 3 11:09:39 2022 Other completed COREY RAMIREZ NP [address] [place], [address], [place] & [place] 3 09:24:33 2020 Cancer Surgery completed Shabnam Razo [place] & [place] 3 09:06:20 hysterectomy completed COREY RAMIREZ NP [address] [place], [address], [place] & [place] 3 15:33:49 esophagogastroduodenoscopy completed [facility] [place] [facility] [place] 3 08:32:11 Mastectomy completed Tracy PEARCE - [facility] & [place] 5 08:39:39 excision of bilatera l breasts completed Ani PEARCE [facility] & [place] 5 08:31:34 hysterectomy completed Adry PEARCE - [facility] & [place] 3 09:54:07 section completed Adry PEARCE [facility] & [place] 3 09:54:07 procedure on kidney completed Bernard Mckinley [facility] & [place] 3 09:54:07 kidney operation completed Shabnam Gilze [place] [facility] & [place] 2 15:02:18 Tubal Ligation completed Shabnam Razo [place] [facility] & [place] 2 15:02:25 Imaging Results None recorded. Procedure Notes None recorded. Medical Equipment None Reported. Allergies Allergen ID Allergen Name Allergen Category Reaction Reaction Severity Criticality Documentation Date Start Date Code Code System Note Provider Name and Address Organization Details Recorded Time 625680 Substance with morphinan structure and opioid receptor agonist mechanism of action (substanc e) medicatio n Not available Not available Not available 05/14/2024 02851 9000 SNOMED Stephanieher Cherry null, [place] - [facility] & [place] 4 12:08:05 47617 Product containin g penicilli n (product) medicatio n rash moderate Not available 08/22/2022 49561 8001 SNOMED Adry Mckinley null, [place] - [facility] & [place] 3 09:54:06 18763 Product containin g penicilli n (product) medicatio n Not available Not available Not available 09/26/2022 85781 8001 SNOMED Marcos Sharp-Bec bernardo null, [place] - [facility] & [place] 3 08:02:53 12817 morphine medicatio n anaphylax is hives severe moderate high 09/26/2022 7052 RxNorm Cady Velasco null, [place] [facility] & [place] 5 14:35:40 96681 penicilli n V Not available rash moderate Not available 02/20/2023 7984 RxNorm Shabnam Razo null, [place] [facility] & [place] 3 10:16:08 Medications Name Sig Start Date Stop [...] intravenous solution 1000 mL by intraven. route. 02/093 completed Not Available Not Available Not Available [...] Not Available Not Available omeprazole 20 mg tablet,chito yed release TAKE 1 TABLET BY MOUTH [...] Arterial blood by Pulse oximetry Heart rate Respiratory rate Systolic blood pressure Diastolic blood pressure Provider Name and Address Organization Details Last Updated DateTime 162.56 cm 35.3 kg/m2 27896.5 9 g 98.2 [degF] 100 % 100 % 61 /min 14 /min 171 mm[Hg] 84 mm[Hg] Cecille Lu [place] [facility] & [place] 09:48:27 Social History Question Answer Notes LastModified by Organizat ion Details LastModified Time Tobacco Smoking Status Never Smoker Not Available [facility] 01/31/2023 09:12:06 Do You Have An Advance Directive? No [email or web address] Information n ot available 05/24/2024 What Is Your Level Of Alcohol Consumption? None CHART_MERGE Information not available 01/31/2023 Do You Wear A Helmet When Biking? Yes [email or web address] Information not available 05/24/2024 Are You Blind Or Do You Have Difficulty Seeing? No CHART_MERGE Information n ot available 01/31/2023 What Is Your Level Of Caffeine Consumption? None [email or web address] Information not available 10/02/2023 In The 14 Days Before Symptom Onset, Have You Had Close Contact With A Laboratory-confirm ed COVID-19 While That Case Was Ill? No [email or web address] Information n ot available 05/24/2024 In The 14 Days Before Symptom Onset, Have You Had Close Contact With A Person Who Is Under Investigation For COVID-19 While That Person Was Ill? No Information not available 05/24/2024 Have You Been To An Area Known To Be High Risk For COVID-19? No [email or web address] Information not available 05/24/2024 Are You Currently Employed? No [email or web address] Information not available 05/24/2024 Are You Deaf Or Do You Have Serious Difficulty Hearing? No [email or web address] Information not available 05/24/2024 What Type Of Diet Are You Following? REGULAR [email or web address] Information n ot available 05/24/2024 Have You Processed Blood Or Body Fluids From An Ebola Virus Disease Patient Without Appropriate PPE? No [email or web address] Information not available 05/24/2024 Do You Reside In Or Have You Traveled To An Area Where Ebola Virus Transmission Is Active? No [email or web address] Information not available 05/24/2024 Have There Been Any Changes To Your Family Or Social Situation? No [email or web address] Information no t available 05/24/2024 What Is The Fluoride Status Of Your Home? Unknown [email or web address] Information not available 05/24/2024 Are There Any Guns Present In Your Home? No [email or web address] Information not available 05/24/2024 Have You Recently Or Are You Planning To Travel To An Area With Zika Virus? No [email or web address] Information not available 05/24/2024 Do You Use Insect Repellent Routinely? Yes [email or web address] Information not available 05/24/2024 Do You Feel Safe At Home? Yes [email or web address] Information not available 05/24/2024 Do You Have A Medical Power Of Digital Associate? No [email or web address] Information not available 05/24/2024 What Was The Date Of Your Most Recent Tobacco Screening? 02/21/2025 [email or web address] Information not available 02/21/2025 Do You Have Any Pets? Yes Information not available 05/24/2024 What Is Your Relationship Status? [email or web address] Information not available 01/17/2025 Do You Use Your Seat Belt Or Car Seat Routinely? Yes [email or web address] Information not available 05/24/2024 Do You Have Smoke And Carbon Monoxide Detectors In Your Home? Yes Information not available 05/24/2024 Are You Passively Exposed To Smoke? No [email or web address] Information no t available 05/24/2024 Do You Or Have You Ever Used Smokeless Tobacco? Never Used Smokeless Tobacco CHART_MERGE Information not available 01/31/2023 How Much Tobacco Do You Smoke? No CHART_MERGE Information not available 01/31/2023 Do You Feel Stressed (tense, Restless, Nervous, Or Anxious, Or Unable To Sleep At Night)? CE7212-9 [email or web address] Information not available 05/24/2024 Do You Use Any Illicit Or Recreational Drugs? No CHART_MERGE Information not available 01/31/2023 Do You Use Sunscreen Routinely? Yes [email or web address] Information not available 05/24/2024 Has Tobacco Cessation Counseling Been Provided? No [email or web address] Information not available 10/02/2023 How Many Years Have You Smoked Tobacco? 0 CHART_MERGE Information not available 01/31/2023 Are You Currently In School? No [email or web address] Information not available 05/24/2024 Do You Or Have You Ever Used Any Other Forms Of Tobacco Or Nicotine? No [email or web address] Information not available 10/02/2023 Sex: Female Functional Status Question Answer Note LastModified by Organizat ion Details LastModified Time Do you have difficulty walking or climbing stairs? No [email or web address] Information not available 05/24/2024 Do you have transportation difficulties? No [email or web address] Information not available 05/24/2024 Are you able to walk? YESWOREST [email or web address] Information not available 05/24/2024 Do you have difficulty doing errands alone? No [email or web address] Information not available 05/24/2024 Are you able to care for yourself? Yes [email or web address] Information not available 05/24/2024 Do you have difficulty dressing or bathing? No [email or web address] Information not available 05/24/2024 What is your exercise level? Moderate tamburgey Information not available 07/31/2023 Mental Status Question Answer Note LastModified by Organization D etails LastModified Time Do you have difficulty concentrating, remembering or making decisions? No [email or web address] Information no t available 05/24/2024 Family History [...] available 2024 08:36:57 Medical History Condition Response Breast Cancer Y Kidney or Bladder Problems N Skin Problems Y Anemia Y Obstructive Sleep Apnea Y Diabetes N Muscle, Joint, or Bone Problems Y Obesity Y Arthritis Y Cancer Y High Cholesterol Y Heart Disease Y Hypertension Y Gynecological History Statement/Question Response Menses Monthly Y Abnormal Pap Y Duration of Flow (days) 5 Age at Menarche 12 Flow Moderate Date of LMP 11/13/2011 Sexually Active? N Obstetrics History GPAL:G 0 P 0 0 0 0 Immunizations Vaccine Type Date Status Note Provider Nam e and Address Organization Details Recorded Time Tdap 3 completed COREY RAMIREZ NP [address] [place] [address], [address], [place] - [place] [facility] & [place] 01/06/2023 15:33:41 pneumococcal polysaccharide PPV23 3 completed COREY RAMIREZ NP [address] [place], [address], [place] [facility] & [place] 01/06/2023 15:33:41 COVID-19, mRNA, LNP-S, PF, 100 mcg/0.5mL dose or 50 mcg/0.25mL dose 1 completed Not Available [facility] 03/06/2023 22:25:09 COVID-19, mRNA, LNP-S, PF, 100 mcg/0.5mL dose or 50 mcg/0.25mL dose 1 completed Not Available [facility] 03/06/2023 22:25:09 COVID-19, mRNA, LNP-S, PF, 100 mcg/0.5mL dose or 50 mcg/0.25mL dose 1 completed Not Available [facility] 03/06/2023 22:25:09 Influenza, split virus, quadrivalent, preservative 1 completed Not Available [facility] 03/06/2023 22:25:09 Influenza, split virus, quadrivalent, PF 3 completed COREY RAMIREZ NP [address] [place], [address], [place] & [place] 07/31/2023 16:21:07 zoster recombinant 3 completed Stephanie bobby, [place] & [place] 05/14/2024 12:07:51 zoster recombinant 3 completed Stephanie Cherry null, [place] [facility] & [place] 05/14/2024 12:07:51 Influenza, recombinant, trivalent, PF 4 completed Tracy Jc null, [place] & [place] 10/24/2024 10:35:05 Influenza, split virus, quadrivalent, PF 2 completed COREY RAMIREZ NP [address] [facility] [place], [address], [place] & [place] 10/05/2022 10:02:41 Past Encounters Encounter ID Performer Location Encounter Start Date Encounter Closed Date Diagnosis/Indication Diagnosis SNOMED-CT Code Diagnosis ICD10 Code Diagnosis Note [id number] COREY RAMIREZ NP [facility] [address] [facility] [place] [address] 12/25/2024 10:14:08 12/25/2024 10:34:29 Hypertensive disorder 92865171 I10 educated on goal of less than 130/90advi sed low sodium diet, healthy lifestyle including exercise as ablesome confusion around previous plan, decrease furosemide to 20 mg once daily, keep blood pressure log and follow up in 4 weeks with her medication sER if any symptoms such as chest pain, shortness of breath History of malignant neoplasm of breast 553304197 Z85.3 Continue follow-up with Oncology on the COREY RAMIREZ NP [facility] [address] [place] [address] 01/17/2025 09:36:16 01/17/2025 10:14:47 Essential hypertension 45115649 I10 educated on goal of less than 130/90advi sed low sodium diet, healthy lifestyle including exercise as ableblood pressure log reviewed which shows blood pressure systolic 120-140, diastolic 70s, pulse 59 to 67. a lot of blood pressure issues seem to be stemming from her stress so we will trial clonidine. Continue with her irbesartan , Lasix 20 mgprevious ly stopped bisoprolol after hospitaliz ation where her [...] Member ID Bedoya Member ID Guarantor Name 01/17/2025 1 NATACHA-AK: MANDY MANZANO OF [place] [id number] Chiqui Curran [id number] Chiqui Curran Notes Date Note Type Note Provider Name and Address Organization Details Recorded Time 01/17/2025 text/html 64-year-old karla frank who presents for 4 week follow-up on blood pressure. Denies any chest pain shortness of breath or swelling. Bisoprolol was stopped after hospitalization due to decreased heart rate and oxygen. She is still taking her Lasix 20 mg once daily and irbesartan 300 mg once daily. Brought her blood pressure log with her today which shows systolic 120-140, diastolic in the 70s. Pulse 50 9-67. She has had a lot of stress. of miss Cathy, of mother and wall which has caused a lot of stress related to her and pyssll-tw-obn all and will, belongings. Getting irritated at things such as her wait time at Oncology. She will see Cardiology in July for her yearly follow-up. She has been unable to reach her sleep specialist COREY RAMIREZ, LAURA [address] [facility], [place], [address], [facility] & [place] 01/17/2025 10:17:55 OBGyn Episode No OBEpisode recorded.
--- OUTSIDE RECORDS SUMMARY | 2025-03-14 20:07 | XMS_ITS ---
Author Organization Unknown Medications Medication Instructions Effective Dates (start - stop) Status lovastatin 20 MG Oral Tablet 202 01-18-12T:00:00.000+00 :00 - Completed 24 HR nifedipine 30 MG Exten ded Release Oral Tablet [id number]:00:00.000+00 :00 - Completed dapagliflozin 10 MG Oral Tab let [xiga] [id number]:00:00.000+00 :00 - Completed lovastatin 20 MG Oral Tablet 01-14-18T:00:00.000+00 :00 - Completed amlodipine 10 MG Oral Tablet 12-24-26:00:00.000+00 :00 - Completed amlodipine 10 MG Oral Tablet 12-23-30:00:00.000+00 :00 - Completed furosemide 20 MG Oral Tablet 01-17-21:00:00.000+00 :00 - Completed omeprazole 20 MG Delayed Rel ease Oral Capsule [id number]:00:00.000+00 :00 - Completed dapagliflozin 10 MG Oral Tab let [xiga] [id number]:00:00.000+00 :00 - Completed lovastatin 20 MG Oral Tablet 12-25-27:00:00.000+00 :00 - Completed lovastatin 20 MG Oral Tablet 12-22-28:00:00.000+00 :00 - Completed furosemide 20 MG Oral Tablet 01-16-22:00:00.000+00 :00 - Completed amlodipine 10 MG Oral Tablet 01-12-22:00:00.000+00 :00 - Completed bisoprolol fumarate 10 MG Or al Tablet [id number]:00:00.000+00 :00 - Completed irbesartan 300 MG Oral Tablet 20 03-11-07T:00:00.000+00 :00 - Completed furosemide 40 MG Oral Tablet 01-12-04:00:00.000+00 :00 - Completed bisoprolol fumarate 5 MG Oral Tablet [id number]:00:00.000+00 :00 - Completed 0.5 ML varicella zoster viru s glycoprotein E, recombinant 0.1 MG/ML Injection [Shingrix] [id number]:00:00.000+00 :00 - Completed spironolactone 25 MG Oral Tablet [id number]:00:00.000+00 :00 - Completed methocarbamol 750 MG Oral Tablet 5985-24-30R84:00:00.000+00 :00 - Completed bisoprolol fumarate 10 MG Or al Tablet [id number]:00:00.000+00 :00 - Completed gabapentin 300 MG Oral Capsule 2 [id number]:00:00.000+00 :00 - Completed spironolactone 25 MG Oral Tablet [id number]:00:00.000+00 :00 - Completed irbesartan 300 MG Oral Tablet 05-05-13:00:00.000+00 :00 - Completed nystatin 100 UNT/MG Topical Powder [id number]:00:00.000+00 :00 - Completed pioglitazone 15 MG Oral Tablet 2 [id number]:00:00.000+00 :00 - Completed pioglitazone 15 MG Oral Tablet 2 016-06-22K44:00:00.000+00 :00 - Completed furosemide 40 MG Oral Tablet 01-14-01:00:00.000+00 :00 - Completed nitrofurantoin, macrocrystal s 25 MG / nitrofurantoin, monohydrate 75 MG Oral Capsule [id number]:00:00.000+00 :00 - Completed nystatin 100 UNT/MG Topical Powder [id number]:00:00.000+00 :00 - Completed bisoprolol fumarate 5 MG Oral Tablet [id number]:00:00.000+00 :00 - Completed hyoscyamine sulfate 0.125 MG Sublingual Tablet [id number]:00:00.000+00 :00 - Completed fluconazole 150 MG Oral Tablet 2 075-01-09Y84:00:00.000+00 :00 - Completed irbesartan 300 MG Oral Tablet 20 02-02-03::00.000+00 :00 - Completed irbesartan 150 MG Oral Tablet 03-09-18:00:00.000+00 :00 - Completed celecoxib 100 MG Oral Capsule 02-02-22::.000+00 :00 - Completed dextromethorphan hydrobromid e 3 MG/ML / promethazine hydrochloride 1.25 MG/ML Oral Solution [id number]:00:00.000+00 :00 - Completed bisoprolol fumarate 10 MG / hydrochlorothiazide 6.25 MG Oral Tablet [id number]:00:00.000+00 :00 - Completed bisoprolol fumarate 5 MG / hydrochlorothiazide 6.25 MG Oral Tablet [id number]::00.00 :00 - Completed bisoprolol fumarate 10 MG / hydrochlorothiazide 6.25 MG Oral Tablet [id number]:00:00.+00 :00 - Completed Patient Care team information Name Category Status Period Participants - - Proposed period not known -
--- OUTSIDE RECORDS SUMMARY | 2025-03-14 20:07 | XMS_ITS | Data Portability ---
Author Organization [facility] ADMIN Address [address] [place] [id number] Care Team Providers Care Ecd Name Role Phone COREY RAMIERZ Primary Care Provider NELLIE COLÓN Hematology/Oncology [phone] Assessment No assessment recorded. Plan of Treatment Reminders Order Date Submit Date Provider Last Modified By Organization Details Last Modified Time Details Appointments OV EST 20 2024 09:20A Grupo Addison, DNP, FLORAL ASSOCIATE, ORACLE EBS DEVELOPER-C Not available Not available Not available Lab HbA1c (hemoglob in A1c), blood 2023 025 [facility], [address], [address], [place], [address], 02/24/2025 07:38:43 copper, serum or plasma 2023 025 [facility], [address], [address], [place], [address], 02/24/2025 07:38:47 selenium, quantitat quentin, blood 2023 025 [facility], [address], [address], [place], [address], 02/24/2025 07:38:48 zinc, serum or plasma 2023 025 [place] [facility], [address], [address], [place], [address], 02/24/2025 07:38:47 iron + TIBC + ferritin, serum 2023 025 [facility], [address], [address], [place], [address], 02/24/2025 07:38:38 folate, serum 2023 025 [facility], [address], [address], [place], [address], 02/24/2025 07:38:43 vitamin E, serum 2023 025 [facility], [address], [address], [place], [address], 02/24/2025 07:38:42 vitamin A (retinol) , serum 2023 025 [facility], [address], [address], [place], [address], 02/24/2025 07:38:44 prealbumi n, serum 2023 025 [facility], [address], [address], [place], [address], 02/24/2025 07:38:48 thiamine, QN, blood 2023 025 [facility], [address], [address], [place], [address], 02/24/2025 07:38:45 methylmal mode, QN, serum or plasma 2023 025 [facility], [address], [address], [place], [address], 02/24/2025 07:38:46 vitamin D, 25-hydrox y, total, serum 2023 025 [facility], [address], [address], [place], [address], 02/24/2025 07:38:45 CBC w/ auto diff 2023 025 [facility], [address], [address], [place], [address], 02/24/2025 07:38:40 CMP, serum or plasma 2023 025 [facility], [address], [address], [place], [address], 02/24/2025 07:38:40 TSH + free T4, serum 2023 025 [facility], [address], [address], [place], [address], 02/24/2025 07:38:39 lipid panel, serum 2023 025 [facility], [address], [address], [place], [address], 02/24/2025 07:38:41 CBC w/ auto diff 2024 025 [facility], [address], [address], [place], [address], 11/16/2024 10:36:11 CMP, serum or plasma 2024 025 [facility], [address], [address], [place], [address], 11/16/2024 10:36:12 TSH + free T4, serum 2024 025 [facility], [address], [address], [place], [address], 11/16/2024 10:36:16 vitamin D, 25-hydrox y, total, serum 2024 025 [facility], [address], [address], [place], [address], 11/16/2024 10:36:17 cobalamin and folate panel, serum 2024 025 [facility], [address], [address], [place], [address], 11/16/2024 10:36:15 HbA1c (hemoglob in A1c), blood 2024 025 [facility], [address], [address], [place], [address], 11/16/2024 10:36:16 lipid panel, serum 2024 025 [place] [facility], [address], [address], [place], [address], 11/16/2024 10:36:14 iron + TIBC + ferritin, serum 2024 025 [place] [facility], [address], [address], [place], [address], 11/16/2024 10:36:10 Referral None recorded. Procedures None recorded. Surgeries None recorded. Imaging None recorded. Medication Orders omeprazol e 20 mg capsule,d elayed release 2024 025 [facility], [address] [place] [address], [address], 02/17/2025 08:47:33 clonidine HCl 0.1 mg tablet 2024 025 [facility], [address] [place] [address], [address], 02/21/2025 15:37:22 furosemid e 20 mg tablet 2024 025 [facility], [address] [place] [address], [address], 12/25/2024 10:36:49 Patient TargetsNo targets recorded. Patient InstructionsNo instructions recorded. Reason for Referral None Reported. Results Created Date Observation Date Name Description Value Unit Range Abnormal Flag Note LastModifiedBy Organization Detail LastModifiedTime 11/15/1911/16/2024 FE+TI BC+FE R iron bind.cap.(TI BC) 255 ug/dL 250-45 0 normal Not Available [facility] ([facility]) [address] [place], [address], 11/16/2024 10:36:10 11/15/19 25 11/16/2024 FE+TI BC+FE R UIBC 200 ug/dL 118-36 9 normal Not Available [facility] ([facility]) [address] [place], [address], 11/16/2024 10:36:10 11/15/19 25 11/16/2024 FE+TI BC+FE R iron 55 ug/dL 27-139 normal Not Available [facility] ([facility]) [address] [place], [address], 11/16/2024 10:36:10 11/15/19 25 11/16/2024 FE+TI BC+FE R iron saturation 22 % 15-55 normal Not Available [facility] ([facility]) [address] [place], [address], 11/16/2024 10:36:10 11/15/19 25 11/16/2024 FE+TI BC+FE R ferritin 236 NG/mL 15-150 above high normal Not Available [facility] ([facility]) [address] [place], [address], 11/16/2024 10:36:10 11/15/19 25 11/16/2024 CBC WITH DIFFE RENTI AL/PL ATELE T WBC 7.1 x10e3 /uL 3.4-10 .8 normal Not Available [facility] ([facility]) [address] [facility] [place], [address], 11/16/2024 10:36:11 11/15/19 25 11/16/2024 CBC WITH DIFFE RENTI AL/PL ATELE T RBC 3.77 x10e6 /uL 3.77-5 .28 normal Not Available [facility] ([facility]) [address] [facility], [place], [address], 11/16/2024 10:36:11 11/15/19 25 11/16/2024 CBC WITH DIFFE RENTI AL/PL ATELE T hemoglobin 11.0 g/dL 11.1-1 5.9 below low normal Not Available [facility] ([facility]) [address] [facility], [place], [address], 11/16/2024 10:36:11 11/15/19 25 11/16/2024 CBC WITH DIFFE RENTI AL/PL ATELE T hematocrit 34.2 % 34.0-4 6.6 normal Not Available [facility] ([facility]) [address] [facility], [place], [address], 11/16/2024 10:36:11 11/15/19 25 11/16/2024 CBC WITH DIFFE RENTI AL/PL ATELE T MCV 91 fL 79-97 normal Not Available [facility] ([facility]) [address] [place], [address], 11/16/2024 10:36:11 11/15/19 25 11/16/2024 CBC WITH DIFFE RENTI AL/PL ATELE T MCH 29.2 pg 26.6-3 3.0 normal Not Available [facility] ([facility]) [address] [facility], [place], [address], 11/16/2024 10:36:11 11/15/19 25 11/16/2024 CBC WITH DIFFE RENTI AL/PL ATELE T MCHC 32.2 g/dL 31.5-3 5.7 normal Not Available [facility] ([facility]) [address] [facility], [place], [address], 11/16/2024 10:36:11 11/15/19 25 11/16/2024 CBC WITH DIFFE RENTI AL/PL ATELE T RDW 13.7 % 11.7-1 5.4 Not Available [facility] ([facility]) [address] [facility], [place], [address], 11/16/2024 10:36:11 11/15/19 25 11/16/2024 CBC WITH DIFFE RENTI AL/PL ATELE T platelets 416 x10e3 /uL 150-45 0 normal Not Available [facility] ([facility]) [address] [facility], [place], [address], 11/16/2024 10:36:11 11/15/19 25 11/16/2024 CBC WITH DIFFE RENTI AL/PL ATELE T neutrophils 59 % not estab. normal Not Available [facility] ([facility]) [address] [facility], [place], [address], 11/16/2024 10:36:11 11/15/19 25 11/16/2024 CBC WITH DIFFE RENTI AL/PL ATELE T lymphs 31 % not estab. normal Not Available [facility] ([facility]) [address] [facility], [place], [address], 11/16/2024 10:36:11 11/15/19 25 11/16/2024 CBC WITH DIFFE RENTI AL/PL ATELE T monocytes 8 % not estab. normal Not Available [facility] ([facility]) [address] [facility], [place], [address], 11/16/2024 10:36:11 11/15/19 25 11/16/2024 CBC WITH DIFFE RENTI AL/PL ATELE T eos 1 % not estab. normal Not Available [facility] ([facility]) [address] [facility], [place], [address], 11/16/2024 10:36:11 11/15/19 25 11/16/2024 CBC WITH DIFFE RENTI AL/PL ATELE T basos 1 % not estab. normal Not Available [facility] ([facility]) [address] [facility], [place], [address], 11/16/2024 10:36:11 11/15/19 25 11/16/2024 CBC WITH DIFFE RENTI AL/PL ATELE T immature cells ORACLE EBS DEVELOPER Not Available [facility] ([facility]) [address] [place], [address], 11/16/2024 10:36:11 11/15/19 25 11/16/2024 CBC WITH DIFFE RENTI AL/PL ATELE T neutrophils (absolute) 4.2 x10e3 /uL 1.4-7. 0 normal Not Available [facility] ([facility]) [address] [place], [address], 11/16/2024 10:36:11 11/15/19 25 11/16/2024 CBC WITH DIFFE RENTI AL/PL ATELE T lymphs (absolute) 2.2 x10e3 /uL 0.7-3. 1 normal Not Available [facility] ([facility]) [address] [place], [address], 11/16/2024 10:36:11 11/15/19 25 11/16/2024 CBC WITH DIFFE RENTI AL/PL ATELE T monocytes(ab solute) 0.5 x10e3 /uL 0.1-0. 9 normal Not Available [facility] ([facility]) [address] [place], [address], 11/16/2024 10:36:11 11/15/19 25 11/16/2024 CBC WITH DIFFE RENTI AL/PL ATELE T eos (absolute) 0.1 x10e3 /uL 0.0-0. 4 normal Not Available [facility] ([facility]) [address] [facility] [place], [address], 11/16/2024 10:36:11 11/15/19 25 11/16/2024 CBC WITH DIFFE RENTI AL/PL ATELE T baso (absolute) 0.1 x10e3 /uL 0.0-0. 2 normal Not Available [facility] ([facility]) [address] [facility], [place], [address], 11/16/2024 10:36:11 11/15/19 25 11/16/2024 CBC WITH DIFFE RENTI AL/PL ATELE T immature granulocytes 0 % not estab. Not Available [facility] ([facility]) [address] [facility], [place], [address], 11/16/2024 10:36:11 11/15/19 25 11/16/2024 CBC WITH DIFFE RENTI AL/PL ATELE T immature grans (abs) 0.0 x10e3 /uL 0.0-0. 1 Not Available [facility] ([facility]) [address] [facility], [place], [address], 11/16/2024 10:36:11 11/15/19 25 11/16/2024 CBC WITH DIFFE RENTI AL/PL ATELE T NRBC ORACLE EBS DEVELOPER Not Available [facility] ([facility]) [address] [facility], [place], [address], 11/16/2024 10:36:11 11/15/19 25 11/16/2024 CBC WITH DIFFE RENTI AL/PL ATELE T hematology comments: ORACLE EBS DEVELOPER Not Available [facility] ([facility]) [address] [facility], [place], [address], 11/16/2024 10:36:11 11/15/19 25 11/16/2024 COMP. METAB OLIC PANEL (14) glucose 76 mg/dL 70-99 normal Not Available [facility] ([facility]) [address] [facility], [place], [address], 11/16/2024 10:36:12 11/15/19 25 11/16/2024 COMP. METAB OLIC PANEL (14) BUN 20 mg/dL 8-27 normal Not Available [facility] ([facility]) [address] [facility], [place], [address], 11/16/2024 10:36:12 11/15/19 25 11/16/2024 COMP. METAB OLIC PANEL (14) creatinine 0.73 mg/dL 0.57-1 .00 normal Not Available [facility] ([facility]) [address] [facility], [place], [address], 11/16/2024 10:36:12 11/15/19 25 11/16/2024 COMP. METAB OLIC PANEL (14) eGFR 92 mL/mi n/1.7 3 >59 normal Not Available [facility] ([facility]) [address] [facility], [place], [address], 11/16/2024 10:36:12 11/15/19 25 11/16/2024 COMP. METAB OLIC PANEL (14) BUN/creatini ne ratio 27 12-28 normal Not Available [facility] ([facility]) [address] [facility], [place], [address], 11/16/2024 10:36:12 11/15/19 25 11/16/2024 COMP. METAB OLIC PANEL (14) sodium 143 mmol/ L 134-14 4 normal Not Available [facility] ([facility]) [address] [facility], [place], [address], 11/16/2024 10:36:12 11/15/19 25 11/16/2024 COMP. METAB OLIC PANEL (14) potassium 4.3 mmol/ L 3.5-5. 2 normal Not Available [facility] ([facility]) [address] [facility], [place], [address], 11/16/2024 10:36:12 11/15/19 25 11/16/2024 COMP. METAB OLIC PANEL (14) chloride 102 mmol/ L 96-106 normal Not Available [facility] ([facility]) [address] [facility] [place], [address], 11/16/2024 10:36:12 11/15/19 25 11/16/2024 COMP. METAB OLIC PANEL (14) carbon dioxide, total 28 mmol/ L 20-29 normal Not Available [facility] ([facility]) [address] [facility] [place], [address], 11/16/2024 10:36:12 11/15/19 25 11/16/2024 COMP. METAB OLIC PANEL (14) calcium 9.2 mg/dL 8.7-10 .3 normal Not Available [facility] ([facility]) [address] [facility] [place], [address], 11/16/2024 10:36:12 11/15/19 25 11/16/2024 COMP. METAB OLIC PANEL (14) protein, total 6.5 g/dL 6.0-8. 5 normal Not Available [facility] ([facility]) [address] [facility] [place], [address], 11/16/2024 10:36:12 11/15/19 25 11/16/2024 COMP. METAB OLIC PANEL (14) albumin 4.1 g/dL 3.9-4. 9 normal Not Available [facility] ([facility]) [address] [facility] [place], [address], 11/16/2024 10:36:12 11/15/19 25 11/16/2024 COMP. METAB OLIC PANEL (14) globulin, total 2.4 g/dL 1.5-4. 5 Not Available [facility] ([facility]) [address] [facility] [place], [address], 11/16/2024 10:36:12 11/15/19 25 11/16/2024 COMP. METAB OLIC PANEL (14) bilirubin, total 0.7 mg/dL 0.0-1. 2 normal Not Available [facility] ([facility]) [address] [facility] [place], [address], 11/16/2024 10:36:12 11/15/19 25 11/16/2024 COMP. METAB OLIC PANEL (14) alkaline phosphatase 116 IU/L 44-121 normal Not Available [facility] ([facility]) [address] [facility] [place], [address], 11/16/2024 10:36:12 11/15/19 25 11/16/2024 COMP. METAB OLIC PANEL (14) AST (SGOT) 22 IU/L 0-40 normal Not Available [facility] ([facility]) [address] [place], [address], 11/16/2024 10:36:12 11/15/19 25 11/16/2024 COMP. METAB OLIC PANEL (14) ALT (SGPT) 20 IU/L 0-32 normal Not Available [facility] ([facility]) [address] [place], [address], 11/16/2024 10:36:12 11/15/19 25 11/16/2024 LIPID PANEL WITH LDL/H DL RATIO cholesterol, total 167 mg/dL 100-19 9 normal Not Available [facility] ([facility]) [address] [place], [address], 11/16/2024 10:36:14 11/15/19 25 11/16/2024 LIPID PANEL WITH LDL/H DL RATIO triglyceride s 131 mg/dL 0-149 normal Not Available [facility] ([facility]) [address] [place], [address], 11/16/2024 10:36:14 11/15/19 25 11/16/2024 LIPID PANEL WITH LDL/H DL RATIO HDL cholesterol 52 mg/dL >39 normal Not Available [facility] ([facility]) [address] [place], [address], 11/16/2024 10:36:14 11/15/19 25 11/16/2024 LIPID PANEL WITH LDL/H DL RATIO VLDL cholesterol claudette 23 mg/dL 5-40 Not Available [facility] ([facility]) [address] [place], [address], 11/16/2024 10:36:14 11/15/19 25 11/16/2024 LIPID PANEL WITH LDL/H DL RATIO LDL chol calc ([facility]) 92 mg/dL 0-99 Not Available [facility] ([facility]) [address] [place], [address], 11/16/2024 10:36:14 11/15/19 25 11/16/2024 LIPID PANEL WITH LDL/H DL RATIO LDL calc comment: ORACLE EBS DEVELOPER Not Available [facility] ([facility]) [address] [facility], [place], [address], 11/16/2024 10:36:14 11/15/19 25 11/16/2024 LIPID PANEL WITH LDL/H DL RATIO LDL/HDL ratio 1.8 ratio 0.0-3. 2 LDL/H DL Ratio Men Women 1/2 Avg.R isk 1.0 1.5 Avg.R isk 3.6 3.2 2X Avg.R isk 6.2 5.0 3X Avg.R isk 8.0 6.1 Not Available [facility] ([facility]) [address] [place], [address], 11/16/2024 10:36:14 11/15/19 25 11/16/2024 VITAM IN B12 AND FOLAT E vitamin B12 606 pg/mL 232-12 45 normal Not Available [facility] ([facility]) [address] [place], [address], 11/16/2024 10:36:15 11/15/19 25 11/16/2024 VITAM IN B12 AND FOLAT E folate (folic acid), serum >20.0 NG/mL >3.0 A serum folat e dwight ntrat ion of less than 3.1 ng/mL is consi dered to repre sent clini claudette defic iency . Not Available [facility] ([facility]) [address] [facility], [place], [address], 11/16/2024 10:36:15 11/15/1911/16/2024 T4 AND TSH TSH 1.680 uIU/m L 0.450- 4.500 normal Not Available [facility] ([facility]) [address] [place], [address], 11/16/2024 10:36:15 11/15/1911/16/2024 T4 AND TSH thyroxine (T4) 7.1 ug/dL 4.5-12 .0 normal Not Available [facility] ([facility]) [address] [place], [address], 11/16/2024 10:36:15 11/15/19 25 11/16/2024 HEMOG LOBIN A1C hemoglobin A1C 5.1 % 4.8-5. 6 normal Predi abete s: 5.7 - 6.4 Diabe sohail: >6.4 Glyce radha contr ol for adult s with diabe sohail: <7.0 Not Available [facility] ([facility]) [address] [place], [address], 11/16/2024 10:36:16 11/15/1911/16/2024 VITAM IN D, 25-HY DROXY vitamin D, 25-hydroxy 44.7 NG/mL 30.0-1 00.0 Vitam in D defic iency has been defin ed by the Insti tute of Medic ine and an Endoc rine Socie ty pract ice guide line as a level of serum 25-OH vitam in D less than 20 ng/mL (1,2) . The Endoc rine Socie ty went on to furth er defin e vitam in D insuf ficie ncy as a level betwe en 21 and 29 ng/mL (2). 1. IOM (Inst itute of Medic ine). 2010. Dieta ry refer ence gris es for calci um and D. Armando hernández [place]: [facility] . 2. Leilani carroll [place], Binkl ey [place], Bisch off-F errar i YODER, et al. Evalu ation , treat ment, and preve ntion of vitam in D defic iency : an Endoc rine Socie ty clini claudette pract ice guide line. JCEM. 2010; 96(7) :1911 -30. Not Available [facility] ([facility]) [address] [place], [address], 11/16/2024 10:36:17 02/18/20 25 02/18/2025 FE+TI BC+FE R iron bind.cap.(TI BC) 257 ug/dL 250-45 0 normal Not Available [facility] ([facility]) [address] [place], [address], 02/24/2025 07:38:38 02/18/20 25 02/18/2025 FE+TI BC+FE R UIBC 229 ug/dL 118-36 9 normal Not Available [facility] ([facility]) [address] [place], [address], 02/24/2025 07:38:38 02/18/20 25 02/18/2025 FE+TI BC+FE R iron 28 ug/dL 27-139 normal Not Available [facility] ([facility]) [address] [place], [address], 02/24/2025 07:38:38 02/18/20 25 02/18/2025 FE+TI BC+FE R iron saturation 11 % 15-55 below low normal Not Available [facility] ([facility]) [address] [place], [address], 02/24/2025 07:38:38 02/18/20 25 02/18/2025 FE+TI BC+FE R ferritin 159 NG/mL 15-150 above high normal Not Available [facility] ([facility]) [address] [place], [address], 02/24/2025 07:38:38 02/18/20 25 02/18/2025 TSH+F REE T4 TSH 2.540 uIU/m L 0.450- 4.500 normal Not Available [facility] ([facility]) [address] [place], [address], 02/24/2025 07:38:39 02/18/20 25 02/18/2025 TSH+F REE T4 T4,free(dire ct) 0.94 NG/dL 0.82-1 .77 normal Not Available [facility] ([facility]) [address] [place], [address], 02/24/2025 07:38:39 02/18/20 25 02/18/2025 CBC WITH DIFFE RENTI AL/PL ATELE T WBC 5.9 x10e3 /uL 3.4-10 .8 normal Not Available [facility] ([facility]) [address] [place], [address], 02/24/2025 07:38:40 02/18/20 25 02/18/2025 CBC WITH DIFFE RENTI AL/PL ATELE T RBC 4.23 x10e6 /uL 3.77-5 .28 normal Not Available [facility] ([facility]) [address] [place], [address], 02/24/2025 07:38:40 02/18/20 25 02/18/2025 CBC WITH DIFFE RENTI AL/PL ATELE T hemoglobin 12.0 g/dL 11.1-1 5.9 normal Not Available [facility] ([facility]) [address] [place], [address], 02/24/2025 07:38:40 02/18/20 25 02/18/2025 CBC WITH DIFFE RENTI AL/PL ATELE T hematocrit 38.4 % 34.0-4 6.6 normal Not Available [facility] ([facility]) [address] [place], [address], 02/24/2025 07:38:40 02/18/20 25 02/18/2025 CBC WITH DIFFE RENTI AL/PL ATELE T MCV 91 fL 79-97 normal Not Available [facility] ([facility]) [address] [place], [address], 02/24/2025 07:38:40 02/18/20 25 02/18/2025 CBC WITH DIFFE RENTI AL/PL ATELE T MCH 28.4 pg 26.6-3 3.0 normal Not Available [facility] ([facility]) [address] [place], [address], 02/24/2025 07:38:40 02/18/20 25 02/18/2025 CBC WITH DIFFE RENTI AL/PL ATELE T MCHC 31.3 g/dL 31.5-3 5.7 below low normal Not Available [facility] ([facility]) [address] [place], [address], 02/24/2025 07:38:40 02/18/20 25 02/18/2025 CBC WITH DIFFE RENTI AL/PL ATELE T RDW 12.8 % 11.7-1 5.4 Not Available [facility] ([facility]) [address] [place], [address], 02/24/2025 07:38:40 02/18/20 25 02/18/2025 CBC WITH DIFFE RENTI AL/PL ATELE T platelets 315 x10e3 /uL 150-45 0 normal Not Available [facility] ([facility]) [address] [place], [address], 02/24/2025 07:38:40 02/18/20 25 02/18/2025 CBC WITH DIFFE RENTI AL/PL ATELE T neutrophils 57 % not estab. normal Not Available [facility] ([facility]) [address] [place], [address], 02/24/2025 07:38:40 02/18/20 25 02/18/2025 CBC WITH DIFFE RENTI AL/PL ATELE T lymphs 35 % not estab. normal Not Available [facility] ([facility]) [address] [place], [address], 02/24/2025 07:38:40 02/18/20 25 02/18/2025 CBC WITH DIFFE RENTI AL/PL ATELE T monocytes 6 % not estab. normal Not Available [facility] ([facility]) [address] [facility], [place], [address], 02/24/2025 07:38:40 02/18/20 25 02/18/2025 CBC WITH DIFFE RENTI AL/PL ATELE T eos 1 % not estab. normal Not Available [facility] ([facility]) [address] [facility], [place], [address], 02/24/2025 07:38:40 02/18/20 25 02/18/2025 CBC WITH DIFFE RENTI AL/PL ATELE T basos 1 % not estab. normal Not Available [facility] ([facility]) [address] [facility], [place], [address], 02/24/2025 07:38:40 02/18/20 25 02/18/2025 CBC WITH DIFFE RENTI AL/PL ATELE T immature cells ORACLE EBS DEVELOPER Not Available [facility] ([facility]) [address] [place], [address], 02/24/2025 07:38:40 02/18/20 25 02/18/2025 CBC WITH DIFFE RENTI AL/PL ATELE T neutrophils (absolute) 3.3 x10e3 /uL 1.4-7. 0 normal Not Available [facility] ([facility]) [address] [facility], [place], [address], 02/24/2025 07:38:40 02/18/20 25 02/18/2025 CBC WITH DIFFE RENTI AL/PL ATELE T lymphs (absolute) 2.1 x10e3 /uL 0.7-3. 1 normal Not Available [facility] ([facility]) [address] [facility], [place], [address], 02/24/2025 07:38:40 02/18/20 25 02/18/2025 CBC WITH DIFFE RENTI AL/PL ATELE T monocytes(ab solute) 0.4 x10e3 /uL 0.1-0. 9 normal Not Available [facility] ([facility]) [address] [facility], [place], [address], 02/24/2025 07:38:40 02/18/20 25 02/18/2025 CBC WITH DIFFE RENTI AL/PL ATELE T eos (absolute) 0.1 x10e3 /uL 0.0-0. 4 normal Not Available [facility] ([facility]) [address] [facility], [place], [address], 02/24/2025 07:38:40 02/18/20 25 02/18/2025 CBC WITH DIFFE RENTI AL/PL ATELE T baso (absolute) 0.1 x10e3 /uL 0.0-0. 2 normal Not Available [facility] ([facility]) [address] [facility], [place], [address], 02/24/2025 07:38:40 02/18/20 25 02/18/2025 CBC WITH DIFFE RENTI AL/PL ATELE T immature granulocytes 0 % not estab. Not Available [facility] ([facility]) [address] [facility], [place], [address], 02/24/2025 07:38:40 02/18/20 25 02/18/2025 CBC WITH DIFFE RENTI AL/PL ATELE T immature grans (abs) 0.0 x10e3 /uL 0.0-0. 1 Not Available [facility] ([facility]) [address] [facility], [place], [place], [address], 02/24/2025 07:38:40 02/18/20 25 02/18/2025 CBC WITH DIFFE RENTI AL/PL ATELE T NRBC ORACLE EBS DEVELOPER Not Available [facility] ([facility]) [address] [facility], [place], [address], 02/24/2025 07:38:40 02/18/20 25 02/18/2025 CBC WITH DIFFE RENTI AL/PL ATELE T hematology comments: ORACLE EBS DEVELOPER Not Available [facility] ([facility]) [address] [facility], [place], [address], 02/24/2025 07:38:40 02/18/20 25 02/18/2025 COMP. METAB OLIC PANEL (14) glucose 84 mg/dL 70-99 normal Not Available [facility] ([facility]) [address] [facility], [place], [address], 02/24/2025 07:38:40 02/18/20 25 02/18/2025 COMP. METAB OLIC PANEL (14) BUN 16 mg/dL 8-27 normal Not Available [facility] ([facility]) [address] [place], [address], 02/24/2025 07:38:40 02/18/20 25 02/18/2025 COMP. METAB OLIC PANEL (14) creatinine 0.81 mg/dL 0.57-1 .00 normal Not Available [facility] ([facility]) [address] [place], [address], 02/24/2025 07:38:40 02/18/20 25 02/18/2025 COMP. METAB OLIC PANEL (14) eGFR 81 mL/mi n/1.7 3 >59 normal Not Available [facility] ([facility]) [address] [facility] [place], [address], 02/24/2025 07:38:40 02/18/20 25 02/18/2025 COMP. METAB OLIC PANEL (14) BUN/creatini ne ratio 20 12-28 normal Not Available [facility] ([facility]) [address] [facility] [place], [address], 02/24/2025 07:38:40 02/18/20 25 02/18/2025 COMP. METAB OLIC PANEL (14) sodium 143 mmol/ L 134-14 4 normal Not Available [facility] ([facility]) [address] [facility] [place], [address], 02/24/2025 07:38:40 02/18/20 25 02/18/2025 COMP. METAB OLIC PANEL (14) potassium 4.3 mmol/ L 3.5-5. 2 normal Not Available [facility] ([facility]) [address] [facility], [place], [address], 02/24/2025 07:38:40 02/18/20 25 02/18/2025 COMP. METAB OLIC PANEL (14) chloride 103 mmol/ L 96-106 normal Not Available [facility] ([facility]) [address] [facility] [place], [address], 02/24/2025 07:38:40 02/18/20 25 02/18/2025 COMP. METAB OLIC PANEL (14) carbon dioxide, total 27 mmol/ L 20-29 normal Not Available [facility] ([facility]) [address] [facility] [place], [address], 02/24/2025 07:38:40 02/18/20 25 02/18/2025 COMP. METAB OLIC PANEL (14) calcium 9.7 mg/dL 8.7-10 .3 normal Not Available [facility] ([facility]) [address] [facility] [place], [address], 02/24/2025 07:38:40 02/18/20 25 02/18/2025 COMP. METAB OLIC PANEL (14) protein, total 6.3 g/dL 6.0-8. 5 normal Not Available [facility] ([facility]) [address] [facility], [place], [address], 02/24/2025 07:38:40 02/18/20 25 02/18/2025 COMP. METAB OLIC PANEL (14) albumin 4.1 g/dL 3.9-4. 9 normal Not Available [facility] ([facility]) [address] [facility], [place], [address], 02/24/2025 07:38:40 02/18/20 25 02/18/2025 COMP. METAB OLIC PANEL (14) globulin, total 2.2 g/dL 1.5-4. 5 Not Available [facility] ([facility]) [address] [facility], [place], [address], 02/24/2025 07:38:40 02/18/20 25 02/18/2025 COMP. METAB OLIC PANEL (14) bilirubin, total 0.9 mg/dL 0.0-1. 2 normal Not Available [facility] ([facility]) [address] [facility], [place], [address], 02/24/2025 07:38:40 02/18/20 25 02/18/2025 COMP. METAB OLIC PANEL (14) alkaline phosphatase 120 IU/L 44-121 normal Not Available [facility] ([facility]) [address] [facility], [place], [address], 02/24/2025 07:38:40 02/18/20 25 02/18/2025 COMP. METAB OLIC PANEL (14) AST (SGOT) 18 IU/L 0-40 normal Not Available [facility] ([facility]) [address] [facility], [place], [address], 02/24/2025 07:38:40 02/18/20 25 02/18/2025 COMP. METAB OLIC PANEL (14) ALT (SGPT) 18 IU/L 0-32 normal Not Available [facility] ([facility]) [address] [facility] [place], [address], 02/24/2025 07:38:40 02/18/20 25 02/18/2025 LIPID PANEL cholesterol, total 145 mg/dL 100-19 9 normal Not Available [facility] ([facility]) [address] [facility], [place], [address], 02/24/2025 07:38:41 02/18/20 25 02/18/2025 LIPID PANEL triglyceride s 135 mg/dL 0-149 normal Not Available [facility] ([facility]) [address] [facility], [place], [address], 02/24/2025 07:38:41 02/18/20 25 02/18/2025 LIPID PANEL HDL cholesterol 45 mg/dL >39 normal Not Available [facility] ([facility]) [address] [facility], [place], [address], 02/24/2025 07:38:41 02/18/20 25 02/18/2025 LIPID PANEL VLDL cholesterol claudette 24 mg/dL 5-40 Not Available [facility] ([facility]) [address] [facility], [place], [address], 02/24/2025 07:38:41 02/18/20 25 02/18/2025 LIPID PANEL LDL chol calc ([facility]) 76 mg/dL 0-99 Not Available [facility] ([facility]) [address] [facility], [place], [address], 02/24/2025 07:38:41 02/18/20 25 02/18/2025 LIPID PANEL LDL calc comment: ORACLE EBS DEVELOPER Not Available [facility] ([facility]) [address] [facility], [place], [address], 02/24/2025 07:38:41 02/18/20 25 02/24/2025 VITAM IN E vitamin E(alpha tocopherol) 10.7 mg/L 9.0-29 .0 Not Available [facility] ([facility]) [address] [place], [address], 02/24/2025 07:38:42 02/18/20 25 02/24/2025 VITAM IN E vitamin E(gamma tocopherol) 1.3 mg/L 0.5-4. 9 Refer ence inter vals for alpha and gamma -toco phero l deter mined from [facility] and Nutri tion Exami natio n Surve y, 2004- 2005. Indiv idual s with alpha -toco phero l level s less than 5.0 mg/L are consi dered vitam in E defic ient. Not Available [facility] ([facility]) [address] [facility], [place], [address], 02/24/2025 07:38:42 02/18/20 25 02/18/2025 HEMOG LOBIN A1C hemoglobin A1C 5.2 % 4.8-5. 6 normal Predi abete s: 5.7 - 6.4 Diabe sohail: >6.4 Glyce radha contr ol for adult s with diabe sohail: <7.0 Not Available [facility] ([facility]) [address] [facility], [place], [address], 02/24/2025 07:38:43 02/18/20 25 02/18/2025 FOLAT E (FOLI C ACID) , SERUM folate (folic acid), serum >20.0 NG/mL >3.0 A serum folat e dwight ntrat ion of less than 3.1 ng/mL is consi dered to repre sent clini claudette defic iency . Not Available [facility] ([facility]) [address] [facility], [place], [address], 02/24/2025 07:38:43 02/18/20 25 02/24/2025 VITAM IN A, SERUM vitamin A 52.5 ug/dL 22.0-6 9.5 Refer ence inter vals for vitam in A deter mined from [facility] inter nal studi es. Indiv idual s with vitam in A less than 20 ug/dL are consi dered vitam in A defic ient and those with serum dwight ntrat ions less than 10 ug/dL are consi dered sever librado defic ient. This test was devel oped and its perfo rmanc e eliceo cteri stics deter mined by [facility]. It has not been clear ed or appro eyad by the Food and Drug Admin istra tion. Not Available [facility] ([facility]) [address] [facility], [place], [address], 02/24/2025 07:38:44 02/18/20 25 02/18/2025 VITAM IN D, 25-HY DROXY vitamin D, 25-hydroxy 53.8 NG/mL 30.0-1 00.0 Vitam in D defic iency has been defin ed by the Insti tute of Medic ine and an Endoc rine Socie ty pract ice guide line as a level of serum 25-OH vitam in D less than 20 ng/mL (1,2) . The Endoc rine Socie ty went on to furth er defin e vitam in D insuf ficie ncy as a level betwe en 21 and 29 ng/mL (2). 1. IOM (Inst itute of Medic ine). 2009. Dieta ry refer mehule gris es for calci um and D. Armando hernández [place]: [facility] . 2. Leilani carroll MF, Chetan lopez [place], Sharmila off-F errar i YODER, et al. Evalu ation , treat ment, and preve ntion of vitam in D defic iency : an Endoc rine Socie ty clini claudette pract ice guide line. JCEM. 2010; 96(7) :1911 -30. Not Available [facility] ([facility]) [address] [facility], [place], [address], 02/24/2025 07:38:45 02/18/20 25 02/21/2025 VITAM IN B1 (THIA MINE) , BLOOD vit. B1, whole blood 172.3 nmol/ L 66.5-2 00.0 Not Available [facility] ([facility]) [address] [place], [address], 02/24/2025 07:38:45 02/18/20 25 02/20/2025 METHY LMALO ROWAN ACID, SERUM methylmaloni c acid, serum 206 nmol/ L 0-378 Not Available [facility] ([facility]) [address] [place], [address], 02/24/2025 07:38:46 02/18/20 25 02/20/2025 COPPE R, SERUM OR PLASM A copper, serum or plasma 111 ug/dL 80-158 Detec tion Limit = 5 Not Available [facility] ([facility]) [address] [place], [address], 02/24/2025 07:38:46 02/18/20 25 02/20/2025 ZINC, PLASM A OR SERUM zinc, plasma or serum 58 ug/dL 44-115 normal Detec tion Limit = 5 Not Available [facility] ([facility]) [address] [place], [address], 02/24/2025 07:38:47 02/18/20 25 02/18/2025 PREAL BUMIN prealbumin 21 mg/dL 10-36 Not Available [facility] ([facility]) [address] [place], [address], 02/24/2025 07:38:48 02/18/20 25 02/19/2025 SELEN IUM, BLOOD selenium, blood 157 ug/L 100-34 0 Detec tion Limit = 10 Not Available [facility] ([facility]) [address] [place], [address], 02/24/2025 07:38:48 Result Notes None recorded. Problems Name Problem SNOMED Code Status Onset Date Resolution Date Notes Provider Name and Address Organization Details Recorded Time History of malignant neoplasm of breast 326687543 Active 2024 George bobby, [place] [facility] & [place] 5 10:25:12 History of bariatric surgical procedure 797222757 Active 2024 George bobby, [place] - [place] - [place] & [place] 5 10:25:09 Thromboph lebitis of superfici al vein of left lower limb 65527813361 420528 Active COREY RAMIREZ NP [address] [place], [address] , [place] [facility] & [place] 5 09:52:56 Lipoma 67418642 Active COREY RAMIREZ NP [address] [facility], [place], [address] , [place] [facility] & [place] 5 09:52:56 Heartburn 84111450 Active 2024 Darrell Addison, DNP, FLORAL ASSOCIATE, ORACLE EBS DEVELOPER-C [address] [facility], [place], [address] , [place] [facility] - [facility] & [facility] 5 08:46:30 Hyperlipi demia 20849239 Active 2021 Abdoulaye Riddle null[place] [facility] & [place] 4 08:40:14 Essential hypertens ion 68641689 Active 2021 Abdoulaye Riddle null[place] & [place] 4 08:40:12 Disorder of function of stomach 373704682 Active 2021 Abdoulaye Riddle [place] & [place] 4 08:40:09 Morbid obesity 402483572 Active 2021 Abdoulaye Riddle [place] & [place] 4 08:40:20 Essential hypertens ion 41653973 Active 2021 Abdoulaye Riddle [place] & [place] 4 08:40:12 Hyperlipi demia 24115019 Active 2021 Abdoulaye Riddle [place] - & [place] 4 08:40:14 Renal cell carcinoma 067030338 Completed 202109/26/2022 Adry Elías null[place] - & [place] 3 09:54:07 Cat scratch disease 79977362 Completed 202109/26/2022 Abdoulaye Riddle null[place] - [place] & [place] 4 09:05:01 Type 2 diabetes mellitus 32766222 Active 2021 Abdoulaye Riddle null[place] - [place] & [place] 4 08:40:26 Obstructi ve sleep apnea syndrome 61646712 Active 2022 Abdoulaye Riddle null[place] - & [place] 4 08:40:25 Vomiting 498148985 Active 2022 Abdoulaye Riddle [place] - & [place] 4 08:40:28 Dysphagia 41247355 Active 2022 Abdoulaye R[place] - & [place] 4 08:40:11 At increased risk for falls 551945198 Active Abdoulaye Riddle [place] - & [place] 4 09:04:57 Hyperchol esterolem ia 63853420 Active Abdoulaye Riddle null[place] - [place] & [place] 4 09:05:06 Body mass index 30+ - obesity 824324813 Active Abdoulaye Riddle null[place] - [place] & [place] 4 09:04:59 Obese abdomen 173754672 Active Abdoulaye Riddle null[place] - [place] & [facility] 4 09:05:12 Malignant tumor of kidney 449981266 Active Abdoulaye Riddle null[place] - [place] & [place] 4 09:05:10 Finding of tobacco use and exposure 359615191 Active Abdoulaye Riddle null, [place] - [place] & [place] 4 09:05:04 Hypertens quentin disorder 78381528 Active Abdoulaye Riddle null[place] & [place] 4 09:05:08 Chronic periphera l venous hypertens ion 203439568 Active Abdoulaye Riddle null[place] & [place] 4 09:05:02 History of cholecyst ectomy 689613071 Active Abdoulaye Riddle [place] & [place] 4 09:05:05 Cat scratch disease 51075711 Active Abdoulaye Riddle [place] & [place] 4 09:05:01 Unintenti onal weight gain 01318670245 4104 Active 2023 George Garcia null[place] & [place] 5 10:25:21 Rheumatoi d arthritis 08521933 Active 2023 George Garcia null[place] & [place] 5 10:25:18 Problem Notes None recorded. Procedures Surgical History Date Name Laterality Status Provider Name and Address Organization Details Recorded Time 2023 Venipuncture completed Natalie Aguirre [place] - [place] & [place] 4 10:34:08 2023 Breast Surgery completed Tracy Jc [place] - [place] & [place] 5 08:30:20 2022 Cholecystectomy completed Ani Renner [place] - [place] - [place] & [place] 3 09:50:28 2022 Starr-en-Y gastrojejunostomy completed Valencia Razo [place] - [place] - [place] & [place] 3 10:55:18 2022 Abdominal Surgery completed Stephanie Cherry [place] - [place] - [place] & [place] 3 11:09:39 2022 Other completed COREY RAMIREZ NP [address] [place], [address], [place] - [place] & [place] 3 09:24:33 2020 Cancer Surgery completed Shabnam PEARCE - LPNT [facility] & [place] 3 09:06:20 hysterectomy completed COREY RAMIREZ NP [address] [place], [address], [place] - [place] & [place] 3 15:33:49 esophagogastroduodenoscopy completed Mala Leo [place] - LPNT [facility] & [place] 3 08:32:11 Mastectomy completed Tracy Jc [place] - LPNT [facility] & [place] 5 08:39:39 excision of bilatera l breasts completed Ani Renner [place] - LPNT [facility] & [place] 5 08:31:34 hysterectomy completed Adry Mckinley [place] - [place] [facility] & [place] 3 09:54:07 section completed Adry Mckinley [place] - LPNT [facility] & [place] 3 09:54:07 procedure on kidney completed Bernard Mckinley PORT[place] LPNT [facility] & [place] 3 09:54:07 kidney operation completed Shabnam PEARCE - LPNT [facility] & [place] 2 15:02:18 Tubal Ligation completed Shabnam PEARCE - LPNT [facility] & [place] 2 15:02:25 Imaging Results None recorded. Procedure Notes None recorded. Medical Equipment None Reported. Allergies Allergen ID Allergen Name Allergen Category Reaction Reaction Severity Criticality Documentation Date Start Date Code Code System Note Provider Name and Address Organization Details Recorded Time 211804 Substance with morphinan structure and opioid receptor agonist mechanism of action (substanc e) medicatio n Not available Not available Not available 05/14/2024 25605 9000 SNOMED Stephanie Dilip bobby [place] - [place] [facility] & [place] 4 12:08:05 20197 Product containin g penicilli n (product) medicatio n rash moderate Not available 08/22/2022 85008 8001 SNOMED Adry Elías null, [place] - [place] & [place] 3 09:54:06 79488 Product containin g penicilli n (product) medicatio n Not available Not available Not available 09/26/2022 98812 8001 SNOMED Marcos Sharp-Bec bernardo null, [place] - [place] & [place] 3 08:02:53 31181 morphine medicatio n anaphylax is hives severe moderate high 09/26/2022 7052 RxNorm Cady Colon null, [place] - [place] & [place] 5 14:35:40 60775 penicilli n V Not available rash moderate Not available 02/20/2023 7984 RxNorm Shabnam Razo null, [place] - [place] & [place] 3 10:16:08 Medications Name Sig Start Date [...] Details Last Updated DateTime 5 162.56 cm 34.3 kg/m2 90145.4 7 g 97.2 [degF] 99 % 99 % 72 /min 147 mm[Hg] 85 mm[Hg] Abdoulaye Hartmanerick moore [facility] & [place] 5 12:10:09 Date Recorded Body height Body mass index (BMI) Body weight Body temperature Oxygen saturation Oxygen saturation in Arterial blood by Pulse oximetry Heart rate Respiratory rate Systolic blood pressure Diastolic blood pressure Provider Name and Address Organization Details Last Updated DateTime 5 162.56 cm 35.2 kg/m2 28599.4 4 g 97.5 [degF] 98 % 98 % 78 /min 18 /min 126 mm[Hg] 77 mm[Hg] George Garcia [facility] & [place] 5 10:24:34 Date Recorded Body height Body mass index (BMI) Body weight Body temperature Oxygen saturation Oxygen saturation in Arterial blood by Pulse oximetry Heart rate Respiratory rate Systolic blood pressure Diastolic blood pressure Provider Name and Address Organization Details Last Updated DateTime 5 162.56 cm 35.3 kg/m2 23015.5 9 g 98.2 [degF] 100 % 100 % 61 /min 14 /min 171 mm[Hg] 84 mm[Hg] Cecille Lu [facility] & [place] 5 09:48:27 Date Recorded Body height Body temperature Heart rate Body mass index (BMI) Body weight Systolic blood pressure Diastolic blood pressure Provider Name and Address Organization Details Last Updated DateTime 5 162.56 cm 98.2 [degF] 68 /min 34.7 kg/m2 32062.3 8 g 154 mm[Hg] 82 mm[Hg] Ani Renner [place] - [facility] [facility] & [place] 5 08:34:06 Date Recorded Body height Body mass index (BMI) Body weight Body temperature Oxygen saturation Oxygen saturation in Arterial blood by Pulse oximetry Heart rate Systolic blood pressure Diastolic blood pressure Provider Name and Address Organization Details Last Updated DateTime 5 162.56 cm 35.4 kg/m2 98100.0 3 g 97.3 [degF] 97 % 97 % 66 /min 127 mm[Hg] 63 mm[Hg] Abdoulaye moore [place] - [place] - [place] & [place] 5 15:28:07 Social History Question Answer Notes LastModified by Organizat ion Details LastModified Time Tobacco Smoking Status Never Smoker Not Available [facility] 01/31/2023 09:12:06 Do You Have An Advance Directive? No [email or web address] Information n ot available 05/24/2024 What Is Your Level Of Alcohol Consumption? None CHART_MERGE Information not available 01/31/2023 Do You Wear A Helmet When Biking? Yes [email or web address] Information not available 05/24/2024 Are You Blind Or Do You Have Difficulty Seeing? No CHART_MERGE Information n ot available 01/31/2023 What Is Your Level Of Caffeine Consumption? None [email or web address] Information not available 10/02/2023 In The 14 Days Before Symptom Onset, Have You Had Close Contact With A Laboratory-confirm ed COVID-19 While That Case Was Ill? No [email or web address] Information n ot available 05/24/2024 In The 14 Days Before Symptom Onset, Have You Had Close Contact With A Person Who Is Under Investigation For COVID-19 While That Person Was Ill? No [email or web address] Information not available 05/24/2024 Have You Been To An Area Known To Be High Risk For COVID-19? No [email or web address] Information not available 05/24/2024 Are You Currently Employed? No [email or web address] Information not available 05/24/2024 Are You Deaf Or Do You Have Serious Difficulty Hearing? No [email or web address] Information not available 05/24/2024 What Type Of Diet Are You Following? REGULAR [email or web address] Information n ot available 05/24/2024 Have You Processed Blood Or Body Fluids From An Ebola Virus Disease Patient Without Appropriate PPE? No [email or web address] Information not available 05/24/2024 Do You Reside In Or Have You Traveled To An Area Where Ebola Virus Transmission Is Active? No [email or web address] Information not available 05/24/2024 Have There Been Any Changes To Your Family Or Social Situation? No Information no t available 05/24/2024 What Is The Fluoride Status Of Your Home? Unknown [email or web address] Information not available 05/24/2024 Are There Any Guns Present In Your Home? No [email or web address] Information not available 05/24/2024 Have You Recently Or Are You Planning To Travel To An Area With Zika Virus? No [email or web address] Information not available 05/24/2024 Do You Use Insect Repellent Routinely? Yes [email or web address] Information not available 05/24/2024 Do You Feel Safe At Home? Yes [email or web address] Information not available 05/24/2024 Do You Have A Medical Power Of Food And Drink Factory Workers? No [email or web address] Information not available 05/24/2024 What Was The Date Of Your Most Recent Tobacco Screening? 02/21/2025 [email or web address] Information not available 02/21/2025 Do You Have Any Pets? Yes [email or web address] Information not available 05/24/2024 What Is Your Relationship Status? [email or web address] Information not available 01/17/2025 Do You Use Your Seat Belt Or Car Seat Routinely? Yes [email or web address] Information not available 05/24/2024 Do You Have Smoke And Carbon Monoxide Detectors In Your Home? Yes [email or web address] Information not available 05/24/2024 Are You Passively Exposed To Smoke? No [email or web address] Information no t available 05/24/2024 Do You Or Have You Ever Used Smokeless Tobacco? Never Used Smokeless Tobacco CHART_MERGE Information not available 01/31/2023 How Much Tobacco Do You Smoke? No CHART_MERGE Information not available 01/31/2023 Do You Feel Stressed (tense, Restless, Nervous, Or Anxious, Or Unable To Sleep At Night)? [id number] [email or web address] Information not available 05/24/2024 Do You Use Any Illicit Or Recreational Drugs? No CHART_MERGE Information not available 01/31/2023 Do You Use Sunscreen Routinely? Yes [email or web address] Information not available 05/24/2024 Has Tobacco Cessation Counseling Been Provided? No [email or web address] Information not available 10/02/2023 How Many Years Have You Smoked Tobacco? 0 CHART_MERGE Information not available 01/31/2023 Are You Currently In School? No [email or web address] Information not available 05/24/2024 Do You Or Have You Ever Used Any Other Forms Of Tobacco Or Nicotine? No [email or web address] Information not available 10/02/2023 Sex: Female Functional Status Question Answer Note LastModified by Organizat ion Details LastModified Time Do you have difficulty walking or climbing stairs? No [email or web address] Information not available 05/24/2024 Do you have transportation difficulties? No [email or web address] Information not available 05/24/2024 Are you able to walk? YESWOREST [email or web address] Information not available 05/24/2024 Do you have difficulty doing errands alone? No [email or web address] Information not available 05/24/2024 Are you able to care for yourself? Yes [email or web address] Information not available 05/24/2024 Do you have difficulty dressing or bathing? No [email or web address] Information not available 05/24/2024 What is your exercise level? Moderate [email or web address] Information not available 07/31/2023 Mental Status Question Answer Note LastModified by Organization D etails LastModified Time Do you have difficulty concentrating, remembering or making decisions? No [email or web address] Information no t available 05/24/2024 Family History [...] [email or web address] Not available 15:09:56 Sister Essential hypertension Not available 04 /09/2025 15:09:56 Sister Malignant tumor of cervix [email or web address] [...] Mother Motor vehicle accident victim deceas ed Not available 02/21/2025 15:09:56 Paternal Uncle Myocardial infarction pt. added direct ly (06/03) [email or web address] Not available 06/03/2024 11:14:20 Paternal Uncle Heart disease [email or web address] Not available 2024 08:36:57 Medical History Condition Response Breast Cancer Y Obstructive Sleep Apnea Y Muscle, Joint, or Bone Problems Y Obesity Y Arthritis Y Cancer Y High Cholesterol Y Kidney or Bladder Problems N Skin Problems Y Anemia Y Diabetes N Heart Disease Y Hypertension Y Gynecological History Statement/Question Response Menses Monthly Y Abnormal Pap Y Duration of Flow (days) 5 Age at Menarche 12 Flow Moderate Date of LMP 11/13/2011 Sexually Active? N Obstetrics History GPAL:G 0 P 0 0 0 0 Immunizations Vaccine Type Date Status Note Provider Nam e and Address Organization Details Recorded Time Tdap 3 completed COREY RAMIREZ NP [address] [place] [address], [address], [place] - [facility] - [place] & [place] 01/06/2023 15:33:41 pneumococcal polysaccharide PPV23 3 completed COREY RAMIREZ NP [address] [place], [address], [place] [facility] [place] & [place] 01/06/2023 15:33:41 COVID-19, mRNA, LNP-S, PF, 100 mcg/0.5mL dose or 50 mcg/0.25mL dose 1 completed Not Available [facility] 03/06/2023 22:25:09 COVID-19, mRNA, LNP-S, PF, 100 mcg/0.5mL dose or 50 mcg/0.25mL dose 1 completed Not Available [facility] 03/06/2023 22:25:09 COVID-19, mRNA, LNP-S, PF, 100 mcg/0.5mL dose or 50 mcg/0.25mL dose 1 completed Not Available [facility] 03/06/2023 22:25:09 Influenza, split virus, quadrivalent, preservative 1 completed Not Available [facility] hospital 03/06/2023 22:25:09 Influenza, split virus, quadrivalent, PF 3 completed COREY RAMIREZ NP [address] [place], [address], [place] [facility] [place] 07/31/2023 16:21:07 zoster recombinant 3 completed Stephanie Cherry null, [place] [facility] & [place] 05/14/2024 12:07:51 zoster recombinant 3 completed Stephanie Cherry null, [place] [facility] 05/14/2024 12:07:51 Influenza, recombinant, trivalent, PF 4 completed Tracy Jc null, [place] [facility] 10/24/2024 10:35:05 Influenza, split virus, quadrivalent, PF 2 completed COREY RAMIREZ NP [address] [place], [address], [place] [facility] & [place] 10/05/2022 10:02:41 Past Encounters Encounter ID Performer Location Encounter Start Date Encounter Closed Date Diagnosis/Indication Diagnosis SNOMED-CT Code Diagnosis ICD10 Code Diagnosis Note [id number] Darrell Addison, DNP, FLORAL ASSOCIATE, ORACLE EBS DEVELOPER-C [facility] [address] [facility] [address] [place] [address] 08/25/2022 07:55:44 08/25/2022 11:02:15 Essential hypertension 78990688 I10 Hyperlipidemia 16421275 E78.5 Disorder o f function of stomach 040007992 K31.89 Morbid obesity 213928733 E66.01 Prediabetes 902614020 R7 3.03 Obesity 711049340 E66.9 The patient will be scheduled for the following. Initial intake lab work, cardiac clearance, and EGD. All risks complicati ons and alternativ es of the upper endoscopy were discussed with the patient and agreed upon. These include but are not limited to, over sedation, bleeding, perforatio n. Patient will be educated by the surgical weight loss team regarding if any medical managed weight loss will be required and they will follow this according to their recommenda tions. patient will follow-up in office after all testing has been completed [id number] COREY RAMIREZ NP [address] [address] 09/26/2022 14:34:49 10/10/2022 13:24:50 Swelling of bilateral lower limbs 173126099 M79.89 awaiting US, arterial Varicose v eins of lower extremity 39457556 I83.893 Abdominal pain 21905460 R10.9 mainly right sideawaiti ng USbland dietER if any urgent signs or symptoms arise Essential hypertension 74809041 I10 educated on goal of less than 130/90advi sed low sodium diet, healthy lifestyle including exercise as ablecontin ue current medication regimenER if any symptoms such as chest pain, shortness of breath Prediabetes 073724432 R7 3.03 take medication s as prescribed awaiting gybu0saxcq forced diet and lifestyle changesdai ly foot checkyearl y eye examfollow up every 3 months Mixed hyperlipidemia 267 811533 E78.2 Patient presented with dyslipidem ia for cardiovasc ular assessment . Discussed results and patient discussed understand ing. Administra tion of influenza vaccine 77236676 Z23 [id number] LAURA BENT[address] [address] 12/02/2022 08:56:49 12/02/2022 09:27:14 Pain of right hip joint 3862160248 94825 M25.551 awaiting xraysheati ng pad, tylenol arthritis, weight management Rib pain 906829499 R07.8 1 ongoing, no relief with symptomati c management Thoracic back pain 96974 8004 M54.6 recommend PT Body mass index 40+ - severely obese 800981876 Z68.42 cardiology has cleared for bariatric surgeryok from primary carewill continue with lab work/chron ic care until surgery is scheduled [id number] COREY RAMIREZ NP [address] [address] 01/02/2023 08:42:15 01/02/2023 10:12:00 Adult health examination 106460313 Z00.00 Patient presented to office today for their Annual Wellness Visit. Education was provided on healthy nutrition, including a diet rich in fruits and vegetables , minimizing simple carbohydra sohail, salt, and saturated fats. Encouraged regular cardiovasc ular exercise such as walking at least 30 minutes daily, 5 times per week. Emphasized preventive health measures to help reduce health risks and promote healthy living. Essential hypertension 34337788 I10 educated on goal of less than 130/90advi sed low sodium diet, healthy lifestyle including exercise as ablecontin ue current medication regimenER if any symptoms such as chest pain, shortness of breath Type 2 vahe betes mellitus 37795573 E11.9 Mass of left breast 1224 225658 5250122 N63.20 1:00, small, nontender, mobilelike ly fibrocysti c tissue but due to hx will get US Vitamin D deficiency 347 06116 E55.9 recheck today Cobalamin deficiency 190 432501 E53.8 recheck today Candidiasis of skin 4988 3006 B37.2 keep skin clean and drymedicat ion discussed to help Administra tion of diphtheria, pertussis, and tetanus vaccine 681998729 Z23 Administra tion of pneumococcal vaccine 20119562 Z23 [id number] Onesimo Seymour Jr, MD [facility] [address] [place] [address] 02/02/2023 08:24:25 02/02/2023 09:40:44 Chronic kidney disease 500203876 N18.9 patient with concerns about chronic kidney disease. A recent creatinine was 1.25 and her GFR is 46. I am going to refer her to [facility]. Renal cell carcinoma 702 656911 C64.9 patient with history of a 4.6 cm right lower pole mass status post a laparoscop ic partial nephrectom y by Dr. ghazala meyer in August 2021. I do not have the results of her pathology. She is being followed by Dr. Mckay of Medical Oncology at [facility] and recent scans reportedly normal. She is to continue follow ups with Dr. Mckay for surveillan ce purposes. [id number] Andrea Barba DO [facility] [address] [facility] [address] [place] [address] 02/01/2023 07:49:22 02/01/2023 14:18:29 Prediabetes 737019835 R73.03 Essential hypertension 36570158 I10 Hyperlipidemia 60757428 E78.5 Morbid obesity 749948520 E66.01 Pre-surger y evaluation 792097942 Z01.818 Postoperative pain 59364 9007 G89.18 [id number] Darrell Addison, LATASHA, FLORAL ASSOCIATE, ORACLE EBS DEVELOPER-C [facility] [address] [facility] [address] [place] [address] 02/14/2023 07:48:08 02/14/2023 10:49:28 Essential hypertension 38848065 I10 Prediabetes 927025286 R7 3.03 Type 2 vahe betes mellitus 18251534 E11.9 Hyperlipidemia 55624953 E78.5 Morbid obesity 645860573 E66.01 Intentiona l weight loss 975800903 R63.8 [id number] Marissa Greenfield APRN zz[facility]gR[facility] [address] [address] 02/15/2023 10:41:23 02/15/2023 11:18:48 History of bariatric surgical procedure 367380290 Z98.84 E63.9 explained to patient she is unable to run after her dog after an extensive surgery.en couraged to keep appts with Dr Barba's clinicincr ease fluid intakefoll ow diet plan via Dr Barba's officeavoi d overexerti on [id number] CROEY RAMIREZ NP zzChgR[address] [address] 02/20/2023 10:01:31 02/20/2023 12:51:49 History of bariatric surgical procedure 251582569 Z98.84 discussed importance of staying hydrating, protein intake Low blood pressure reading 808345635 R03.1 stop spironolac tone due to low blood pressure readingdis cussed importance of staying hydrating, protein intakef/u 2 weeks with blood pressure log Fall W19.XXXA fall prevention denies injury, syncopeche ck lab work todaystayi ng hydrated Dysuria 15072502 R30.0 UA with small bloodstay hydratedtx with macrobid Neck pain 04243586 M54.2 heating pad; muscle relaxercon director of [facility] PT if no improvemen tnegative exam for meningitis Muscle pain 15021040 M79 .10 Fatigue 31477764 R53.83 not intaking enough protein, discussed with ptawaiting lab workER if any urgent signs or symptoms arise [id number] COREY RAMIREZ NP zzChgR[address] [address] 03/07/2023 14:33:09 03/07/2023 15:18:46 Dizziness 966474260 R42 labs have improvedco ntinue to push fluids and push protein intake to get nutrition she needsf/u with bariatric surgeon as recommendoxana jones 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 Bariatric vitamin panel ordered today. Patient will be contacted to correct any vitamin deficienci es.She will see dietitian today. Patient is to have bariatric vitamin lab panel. Patient was reassured on today's visit. Dialogue content in great detail regarding the benefits of proper diet as well as regular and routine exercise. In regards to exercise, we discussed reaching target heart rate for least 20 minutes 3 times a week. We also highlighte d the importance of staying well hydrated. Proper handwashin g was also encouraged . Patient was advised to keep in close contact with their primary care provider and/or any specialty provider (s). We will contact patient with any deficienci es. Intentiona l weight loss 461485118 R63.8 Essential hypertension 12101379 I10 Morbid obesity 251309690 E66.01 Type 2 vahe betes mellitus 95200208 E11.9 Hyperlipidemia 14373667 E78.5 Obstructiv e sleep apnea syndrome 41286081 G47.33 Vomiting 387043944 R11.1 0 Disorder o f function of stomach 472273045 K31.89 Dysphagia 00565514 R13.1 0 [id number] COREY RAMIREZ NP [facility] [address] [place] [address] 05/08/2023 15:13:57 05/08/2023 16:41:38 Dysuria 73449081 R30.0 urine sent for culture and office will call after culture received. Push fluids especially water. If no better in 48-72 hours or if you develop abdominal or back pain, with fever chills nausea or vomiting come back or go to the emergency room immediatel y Flank pain 566208554 R10 .9 awaiting urine studiespus h fluidsheat ing padconside r muscular, physical therapyf/u if symptoms persistER if any urgent signs or symptoms arise [id number] Darrell Addison, DNP, FLORAL ASSOCIATE, ORACLE EBS DEVELOPER-C [facility] [address] [facility] [address] [place] [address] 05/17/2023 08:08:05 05/17/2023 09:36:10 History of bariatric surgical procedure 233166353 Z98.84 Intentiona l weight loss 211038385 R63.8 History of gastrectomy 611116190 Z90.3 Advised qid intake 50% protein 9290-2989 calories/d y less than 100 carbs/dy Long discussion today of InBody results including PBF(percen t body fat) SMM (skeletal muscle mass) Visceral fat level level BMR Segmental Fat Analysis and Segmental Lean Analysis. Encouraged pt to take minimal calories as per BMR and to anticipate changes in SMM and PBF values not just total weight. Follow-up with Repeat MEÑO in 3mth suggested Patient is status post bariatric surgery and at increased risk for vitamin deficienci es and malnutriti on. Bariatric vitamin panel ordered today. Patient will be contacted to correct any vitamin deficienci es. Essential hypertension 75711722 I10 Hyperlipidemia 91187985 E78.5 Morbid obesity 610145817 E66.01 Obstructiv e sleep apnea syndrome 80917192 G47.33 Type 2 vahe betes mellitus 46777174 E11.9 [id number] COREY RAMIREZ NP [facility] [address] [place] [address] 07/31/2023 09:02:37 07/31/2023 09:47:47 Dysuria 27728962 R30.0 no blood in urine today but small bilirubinp us fluidsawai ting lab work Bilirubinuria 63747409 R 82.2 Administra tion of influenza vaccine 79890717 Z23 [id number] Darrell Addison, DNP, FLORAL ASSOCIATE, ORACLE EBS DEVELOPER-C [facility] [address] [facility] [address] [place] [address] 08/18/2023 09:34:40 08/18/2023 10:06:12 History of bariatric surgical procedure 092444144 Z98.84 Intentiona l weight loss 357929909 R63.8 History of gastrectomy 689461110 Z90.3 Advised qid intake 50% protein 7866-0042 calories/d y less than 100 carbs/dyLo ng discussion today of InBody results including PBF(percen t body fat) SMM (skeletal muscle mass) Visceral fat level level BMR Segmental Fat Analysis and Segmental Lean Analysis.E ncouraged pt to take minimal calories as per BMR and to anticipate changes in SMM and PBF values not just total weight.Fol low-up with Repeat MEÑO in 3mth suggested Patient is status post bariatric surgery and at increased risk for vitamin deficienci es and malnutriti on. Bariatric vitamin panel ordered today. Patient will be contacted to correct any vitamin deficienci es. Essential hypertension 15433303 I10 Hyperlipidemia 51277236 E78.5 Morbid obesity 134335476 E66.01 Obstructiv e sleep apnea syndrome 76836659 G47.33 Type 2 vahe betes mellitus 04929065 E11.9 [id number] BILLY BAKER RDN, LD [facility] [address] [place] [address] 08/18/2023 10:17:50 08/18/2023 12:14:42 Obesity 449592117 E66.9 BMI = 35; improving Noncomplia nce with self-monitoring regimen 2829563181 35695 Z91.199 not tracking kcal or protein intake Takes inad equate exercise 586980200 Z72.3 lack of muscle-str engthening exercise Inadequate intake of protein and/or protein derivative 280604867 E46 loss of 3# SMM since [facility] [id number] COREY RAMIREZ NP [facility] [address] [place] [address] 08/29/2023 08:20:30 08/29/2023 09:22:17 Diarrhea 37133374 R19.7 Ordered liver ultrasound and HIDA scan.ER if any urgent signs or symptoms arisehydra tion Nausea and vomiting 1691999 R11.2 We will check amylase, lipase, serum ferritin, iron levels, CBC with differenti al, C-reactive protein, sed rate, antinuclea r antibody, GGT, comprehens quentin metabolic panel, hepatic function panel.edie hooker dietstayin g hydrated Right flank pain 3093563 09 R10.9 Advised to start taking her muscle relaxer to see if helps with right back/rib pain Serum ferr itin above reference range 149406591 R77.8 recheck lab work today Dysuria 50278309 R30.0 We will check urinalysis , dipstick, and urine culture.chago pizanoi cindy lab work [id number] DO Emmy JASSO [facility] [place] - [address] [place] [address], [place] [address] 09/27/2023 10:50:20 09/27/2023 11:55:57 Right upper quadrant pain 191216550 R10.11 [id number] BRITNI Irene [facility] [address] [facility] [address] [place] [address] 10/02/2023 09:37:08 10/02/2023 10:13:21 Biliary dyskinesia 420090807 K82.8 Patient is to have robotic multiport cholecyste ctomy. All risks, complicati ons, alternativ es were explained to the patient agreed upon. These include but not limited to nausea, vomiting, diarrhea, bowel/blad chay/vessel injury, bile duct injury, bile leak and need for additional surgery or open surgery. Patient has been given education an opportunit y to voice all questions and agrees to proceed. Patient will return to clinic for postoperat quentin visit 2 weeks after surgery. Pre-surger y evaluation 049622553 Z01.818 History of bypass of stomach 452532854 Z98.84 [id number] Darrell Addison DNP, FLORAL ASSOCIATE, ORACLE EBS DEVELOPER-C [facility] [address] [place] [address] [address] [place] [address] 11/10/2023 09:45:42 11/10/2023 10:39:10 History of bariatric surgical procedure 708423429 Z98.84 Intentiona l weight loss 344278856 R63.8 History of gastrectomy 167431978 Z90.3 Advised qid intake 50% protein 9197-5784 calories/d y less than 100 carbs/dy Long discussion today of InBody results including PBF(percen t body fat) SMM (skeletal muscle mass) Visceral fat level level BMR Segmental Fat Analysis and Segmental Lean Analysis. Encouraged pt to take minimal calories as per BMR and to anticipate changes in SMM and PBF values not just total weight. Follow-up with Repeat MEÑO in 3mth suggested Patient is status post bariatric surgery and at increased risk for vitamin deficienci es and malnutriti on. Bariatric vitamin panel ordered today. Patient will be contacted to correct any vitamin deficienci es. Essential hypertension 73611701 I10 Hyperlipidemia 27482652 E78.5 Morbid obesity 594256120 E66.01 Obstructiv e sleep apnea syndrome 54929952 G47.33 Type 2 vahe betes mellitus 17659835 E11.9 [id number] Darrell Addison, DNP, FLORAL ASSOCIATE, ORACLE EBS DEVELOPER-C [facility] [address] [facility] [address] [place] [address] 02/09/2024 09:26:12 02/09/2024 10:04:32 History of bariatric surgical procedure 674035743 Z98.84 Intentiona l weight loss 889310478 R63.8 History of gastrectomy 240863664 Z90.3 Advised qid intake 50% protein 2798-4429 calories/d y less than 100 carbs/dyLo ng discussion today of InBody results including PBF(percen t body fat) SMM (skeletal muscle mass) Visceral fat level level BMR Segmental Fat Analysis and Segmental Lean Analysis.E ncouraged pt to take minimal calories as per BMR and to anticipate changes in SMM and PBF values not just total weight.Fol low-up with Repeat MEÑO in 3mth suggested. Patient will see dietitian today. Patient is status post bariatric surgery and at increased risk for vitamin deficienci es and malnutriti on. Bariatric vitamin panel ordered today. Patient will be contacted to correct any vitamin deficienci es. Hyperlipidemia 40256455 E78.5 Essential hypertension 43436096 I10 Type 2 avhe betes mellitus 33829335 E11.9 Obstructiv e sleep apnea syndrome 16471557 G47.33 Obesity 764797312 E66.9 The patient will be scheduled for the following. Initial intake lab work, cardiac clearance, and EGD. All risks complicati ons and alternativ es of the upper endoscopy were discussed with the patient and agreed upon. These include but are not limited to, over sedation, bleeding, perforatio n. Patient will be educated by the surgical weight loss team regarding if any medical managed weight loss will be required and they will follow this according to their recommenda tions. patient will follow-up in office after all testing has been completed [id number] [address]ING[address] V[address]QUEZ [address], LD [facility] [address] [facility] [address] [place] [address] 02/12/2024 10:50:39 02/12/2024 11:31:09 Morbid obesity 718373736 E66.01 BMI 34.8 wt loss 55.8# Dietary ma [facility] surveillance 240621315 Z71.3 [id number] Remy Pena MD [facility] [address] [facility] [place] [address] 02/23/2024 08:28:16 02/23/2024 09:12:01 Mixed hyperlipidemia 652538824 E78.2 Patient presented with dyslipidem ia for cardiovasc ular assessment . Discussed results and patient discussed understand ing. Laboratory test result abnormal 399334069 R89.9 patient concerned with lab work, printed and reviewed all of lab work completed by bariatric team. Ferritin is elevated in the 300s but this has improved from previous, asymptomat ic all other lab work is normal, she reports she will have it retested tomorrow and bring me the result Pain due t o varicose veins of lower extremity 907453969 I83.819 Referral to vascular [id number] Darrell Addison, DNP, FLORAL ASSOCIATE, ORACLE EBS DEVELOPER-C [facility] [address] [facility] [address] [place] [address] 05/06/2024 09:42:51 05/06/2024 11:29:41 History of bariatric surgical procedure 328645365 Z98.84 Intentiona l weight loss 687881554 R63.8 History of gastrectomy 628075246 Z90.3 Advised qid intake 50% protein 6337-9216 calories/d y less than 100 carbs/dy Long discussion today of InBody results including PBF(percen t body fat) SMM (skeletal muscle mass) Visceral fat level level BMR Segmental Fat Analysis and Segmental Lean Analysis. Encouraged pt to take minimal calories as per BMR and to anticipate changes in SMM and PBF values not just total weight. Follow-up with Repeat MEÑO in 3mth suggested Patient is status post bariatric surgery and at increased risk for vitamin deficienci es and malnutriti on. Bariatric vitamin panel ordered today. Patient will be contacted to correct any vitamin deficienci es. Hyperlipidemia 16423567 E78.5 Essential hypertension 79226806 I10 Type 2 vahe betes mellitus 85835045 E11.9 [id number] COREY RAMIREZ NP [facility] [address] [place] [address] 05/24/2024 14:37:29 2024 08:30:27 Dysuria 63332573 R30.0 Hyperbilirubinemia 38001 006 E80.6 recheck lab work today Serum ferr itin above reference range 620239299 R77.8 recheck lab work today Acute cystitis 11487557 N30.00 Office UA suggesting UTI, urine sent for culture and office will call after culture received. Take all medicines prescribed for you for the allotted time period. Push fluids especially water. If no better in 48-72 hours or if you develop abdominal or back pain, with fever chills nausea or vomiting come back or go to the emergency room immediatel y Pain in bi lateral lower legs 6976862800 3285927 M79.661 M79.662 f/u with vascularpa in and swelling affecting ADL Abnormal r enal function 85244603 R94.4 [id number] JENNIFER ISAAC DO [facility] General Surgery - [address] [place] [address], [address] [place] [address] 06/06/2024 10:47:43 06/11/2024 11:24:41 Epigastric pain 79253104 R10.13 -Patient is status post Starr-en-Y gastric bypass which does put her at risk for marginal ulcers- this was discussed with the patient and recommende d patient undergo an EGD to evaluate- discussed the risks, benefits, alternativ es to endoscopic evaluation -patient agrees to proceed with endoscopic procedure- patient to be scheduled at her earliest convenienc e [id number] Silva Sanchez PA-C [facility] [address] [place] [address] 06/05/2024 09:42:10 06/05/2024 10:31:29 Serum ferritin above reference range 013761937 R77.8 Patient labs performed per primary care provider on May 24, 2024 with serum iron 74 and iron saturation 28%. Ferritin 325.CRP 1. Sed rate 24. Negative HARJINDER. Negative hepatitis panel. Normal liver enzymes. No evidence of chronic kidney disease. Patient denies any family history of hemochroma tosis. She had a Starr-en-Y performed February 09, 2023. She has lost 93 lbs. since the surgery. She was taking multivitam ins with iron but has recently discontinu ed multivitam ins with iron. She does not smoke or drink any alcohol. Denies any history of liver disease. She has had joint pain of the hips. Will order labs today. Will follow up with further recommenda tions Pain of bi lateral hip joints 5109531033 8871424 M25.551 Patient has had joint pain of the hips. Will order labs today. Will follow up with further recommenda tions History of malignant neoplasm of kidney 519247041 Z85.528 Patient states she had renal cancer of the right kidney in 2020 and she had the lesion removed at [facility]. Will request records. Screening mammography of bilateral breasts 5186029002 08837 Z12.31 Patient is due for annual mammogram. Will schedule. History of bariatric surgical procedure 017652941 Z98.84 Patient had a Starr-en-Y performed February 09, 2023. She has lost 93 lbs. since the surgery. [id number] Silva Sanchez PA-C [facility] [address] [place] [address] 07/17/2024 09:38:20 07/17/2024 10:42:59 Serum ferritin above reference range 788015675 R77.8 Patient labs performed per primary care provider on May 24, 2024 with serum iron 74 and iron saturation 28%. Ferritin 325.CRP 1. Sed rate 24. Negative HARJINDER. Negative hepatitis panel. Normal liver enzymes. No evidence of chronic kidney disease. Patient denies any family history of hemochroma tosis. She had a Starr-en-Y performed February 09, 2023. She has lost 93 lbs. since the surgery. She was taking multivitam ins with iron but has recently discontinu ed multivitam ins with iron. She does not smoke or drink any alcohol. Denies any history of liver disease. She has had joint pain of the hips. Labs on June 05, 2024 with serum iron 57 and iron saturation 22%. Improvemen t in ferritin to 295. Negative hereditary hemochroma tosis. Positive rheumatoid arthritis. Referred to Rheumatolo ren. Discussed elevated ferritin likely secondary to inflammati on from rheumatoid arthritis. Will follow up labs today. Pain of bi lateral hip joints [id number] M25.551 Patient has had joint pain of the hips. Will order labs today. Will follow up with further recommenda tions History of malignant neoplasm of kidney [id number] Z85.528 Patient states she had renal cancer of the right kidney in 2020 and she had the lesion removed at [facility]. Will request records. Screening mammography of bilateral breasts [id number] 88207 Z12.31 Patient is due for annual mammogram. Will schedule. Mammogram on July 05, 2024 with indetermin ate left central breast focal asymmetry, recommend additional imaging. Left diagnostic mammogram and targeted left breast ultrasound scheduled. This is scheduled for July 25, 2024. History of bariatric surgical procedure [id number] Z98.84 Patient had a Starr-en-Y performed February 09, 2023. She has lost 93 lbs. since the surgery. [id number] Darrell Addison, DNP, FLORAL ASSOCIATE, ORACLE EBS DEVELOPER-C [facility] S[facility] [address] [facility] [address] [place] [address] 08/06/2024 08:39:30 08/06/2024 13:43:48 History of bariatric surgical procedure [id number] Z98.84 Intentiona l weight loss 941861507 R63.8 History of gastrectomy 612814044 Z90.3 Advised qid intake 50% protein 5699-0793 calories/d y less than 100 carbs/dyLo ng [...] in 3mth suggested. I did offer dietitian today, pt declines at this time Patient is status post bariatric surgery and at increased risk for vitamin deficienci es and malnutriti on. Bariatric vitamin panel ordered today. Patient will be contacted to correct any vitamin deficienci es. At [facility] risk of nutritional deficit 035340830 Z91.89 Essential hypertension 88831025 I10 Type 2 vahe betes mellitus 33373844 E11.9 Hyperlipidemia 96008545 E78.5 Unintentio nal weight gain [id number] 46996 R63.5 Rheumatoid arthritis 698 69840 M06.9 Keep upcoming appt with specialist . [id number] Nellie Colón MD [facility] [address] [place] [address] 09/09/2024 09:19:14 09/09/2024 10:35:43 Serum ferritin above reference range 020546673 R77.8 Patient labs performed per primary care provider on May 24, 2024 with serum iron 74 and iron saturation 28%. Ferritin 325.CRP 1. Sed rate 24. Negative HARJINDER. Negative hepatitis panel. Normal liver enzymes. No evidence of chronic kidney disease. Patient denies any family history of hemochroma tosis. She had a Starr-en-Y performed February 09, 2023. She has lost 93 lbs. since the surgery. She was taking multivitam ins with iron but has recently discontinu ed multivitam ins with iron. She does not smoke or drink any alcohol. Denies any history of liver disease. She has had joint pain of the hips. Labs on June 05, 2024 with serum iron 57 and iron saturation 22%. Improvemen t in ferritin to 295. Negative hereditary hemochroma tosis. Positive rheumatoid arthritis. Referred to Rheumatolo ren. Discussed elevated ferritin likely secondary to inflammati on from rheumatoid arthritis. Will follow up labs today. Pain of bi lateral hip joints [id number] 3961213 M25.551 Patient has had joint pain of the hips. Primary ma lignant neoplasm of lower outer quadrant of breast 498663630 C50.511 Patient had bilateral screening mammogram performed July 05, 2024 with findings of indetermin ate left breast focal asymmetry with additional imaging recommende d. BI-RADS category 0.Diagnost ic left breast mammogram and ultrasound performed on July 25, 2024. Findings of 1.7 x 1.3 cm mass in the middle depth of the left breast posterior to the areola. Suspicious mass at the 6 o'clock position of the left breast with irregular margins on ultrasound . 1.6 x 1.1 x 1.2 cm at the 6 o'clock position of the left breast. Suspicious nodule 1 cm at the 7 o'clock position of the left breast. BI-RADS category 4 C and biopsy recommende d of both lesions. Biopsy performed on left breast on August 27, 2024. Findings of invasive lobular carcinoma [place] grade 1. Estrogen receptor positive 90% cells. Progestero ne receptor positive 90% of cells. Breast mass less than 2 cm in size. Patient presents for evaluation on September 09, 2024. Discussion of lumpectomy versus mastectomy . Discussion of likely need for aromatase inhibitor therapy following surgical resection. Will follow-up final pathology. Patient wishes seen by breast surgery [facility]. Will make referral. Patient interested in mastectomy . No family history of breast cancer ovarian cancer. Will follow up evaluation surgery. Will follow-up pathology. Estrogen r eceptor positive tumor 915227743 Z17.0 Biopsy performed on left breast on August 27, 2024. Findings of invasive lobular carcinoma [place] grade 1. Estrogen receptor positive 90% cells. Progestero ne receptor positive 90% of cells. Breast mass less than 2 cm in size. Screening for osteoporosis 944143617 Z13.820 Postmenopa usal female. Discussed evaluation with DEXA scan. [id number] COREY RAMIREZ NP [facility] [address] [place] [address] 11/15/2024 11:54:35 11/15/2024 12:32:03 History of bariatric surgical procedure 179336163 Z98.84 blood drawn in the right AC by Cecille Lu CMA, patient tolerated well.discu ssed importance of staying hydrating, protein intake. Essential hypertension 36403696 I10 educated on goal of less than 130/90advi sed low sodium diet, healthy lifestyle including exercise as ablecontin ue with stopping her bisoprolol , continue with irbesartan and can trial decreasing furosemide to 20 mg once daily and taking 40 if she has days that she needs to with swellingER if any symptoms such as chest pain, shortness of breath History of malignant neoplasm of breast 228049307 Z85.3 continue follow-up with on December 09 [id number] Darrell Addison, DNP, FLORAL ASSOCIATE, ORACLE EBS DEVELOPER-C [facility] [address] [facility] [address] [place] [address] 02/17/2025 08:22:28 02/17/2025 09:14:24 History of bariatric surgical procedure 918668006 Z98.84 Intentiona l weight loss 788760115 R63.8 History of gastrectomy 374370449 Z90.3 Advised qid intake 50% protein 2122-9225 calories/d y less than 100 carbs/dyLo ng [...] to correct any vitamin deficienci es. At [facility] risk of nutritional deficit 157248576 Z91.89 Essential hypertension 68365813 I10 Hyperlipidemia 49159568 E78.5 Obstructiv e sleep apnea syndrome 18700977 G47.33 Type 2 vahe betes mellitus 42962498 E11.9 Heartburn 33884807 R12 GERD-patie nt was reassured. We discussed [...] avoid foods that may aggravate the problem. [id number] COREY RAMIREZ NP [place] [address] [address] [place] [address] 12/25/2024 10:14:08 12/25/2024 10:34:29 Hypertensive disorder 52919547 I10 educated on goal of less than 130/90advi sed low sodium diet, healthy lifestyle including exercise as ablesome confusion around previous plan, decrease furosemide to 20 mg once daily, keep blood pressure log and follow up in 4 weeks with her medication sER if any symptoms such as chest pain, shortness of breath History of malignant neoplasm of breast 656357472 Z85.3 Continue follow-up with Oncology on the 1784 COREY RAMIREZ NP [facility] [address] [place] [address] 01/17/2025 09:36:16 01/17/2025 10:14:47 Essential hypertension 83865977 I10 educated on goal of less than [...] such as chest pain, shortness of breath [id number] COREY RAMIREZ, LAURA [facility] [address] [place], [place] [address] 02/21/2025 15:09:46 02/21/2025 15:54:28 Essential hypertension 94203692 I10 educated on goal of less than [...] LastModified Time None Recorded Advance Directives Directive N: Payers Encounter Date Sequence Insurance Name Policy Number Policy Bedoya Covered Member ID Bedoya Member ID Guarantor Name 11/15/2024 1 [place] [employer] [place] [id number] Chiqui Curran [id number] Chqiui Tincher 12/25/2024 1 [place] [id number] Chiqui L Bina [id number] Chiqui Tincher 01/17/2025 1 [place] [id number] Chiqui L Bina [id number] Chiqui Tincher 02/17/2025 1 [place] [id number] Chiqui Curran [id number] Chiqui Tincher 02/21/2025 1 [place] [id number] 9 Chiqui Curran [id number] Chiqui Curran Notes Date Note Type Note Provider Name and Address Organization Details Recorded Time 11/15/2024 text/html 64-year-old karla frank who presents for follow-up. Since last office visit she had routine mammogram that came back abnormal. Biopsies were completed and she asked to be referred to . There she performed MRI and had lumpectomy. By that time within a couple weeks it had spread to her lymph nodes. On October 21 she had double mastectomy. During surgery her heart rate dropped to 39. she has not been taking her bisoprolol since then. She does have a follow-up with them on December 09 to discuss hormone blockers. She has to reschedule her appointment for sleep apnea in since the [place]. Blood pressure at home ranges from 120 to 130. It is slightly elevated here today at 1:47 a.m.. She denies any chest pain or shortness of breath. She is taking Lasix but not potassium. Does take her irbesartan but did not take her medications this morning. Having normal bowel and bladder habits. COREY RAMIREZ NP [address] [place], [address], [facility] & [place] 11/19/2024 13:01:29 12/25/2024 text/html 64-year-old karla frank who presents for follow-up on blood pressure. Per last office note she was supposed to decrease her Lasix to 20 mg once daily. there was some confusion and she has continued to take the 40 mg. She denies any swelling, chest pain, shortness of breath. Blood pressure at home runs around 130 systolic. She will have follow-up on the with Oncology, plans for DEXA scan, will also see surgeon for lymphadenopathy. COREY RAMIREZ NP [address] [place], [address], [facility] & [place] 12/25/2024 10:37:52 01/17/2025 text/html 64-year-old karla frank who presents [...] lot of stress related to her and [id number] all and will, belongings. Getting irritated at things such as her wait time at Oncology. She will see Cardiology in July for her yearly follow-up. She has been unable to reach her sleep specialist COREY RAMIREZ NP [address] [facility], [place], [address], [facility] & [place] 01/17/2025 10:17:55 02/17/2025 text/html Patient presents the office today for routine follow-up status post bariatric gastric RNY bypass surgery performed on . Patient doing well. Reports q.i.d. small meal intake. Reports >70g/dy protein intake and good hydration.Patient is drinking 64 ounces of water a day.Daily Calories has not been counting Taking routine vitamins as advised.Heartburn/gas troesophageal reflux: yes, has been taking PPI for the past 2 weeks which has helped.Pt Denies : abdominal pain, prandial issues Nausea, Vomiting, bowel or bladder issuesTotal Weight loss Since last office visit has been 0.4 lbsPt is happy with their quality of life after Weight loss Surgery.She was dx with breast caner in September and had bilateral mastectomy on 10-21-2024. She is to f/u with oncology on April 01, 2025. She recently seen pcp and is to follow up sonia afternoon. She enjoys gardening. Today's InBody reveals a skeletal muscle mass =58.2 lb,body fat mass =94.8 lb,BMI = 34.7Percent body fat = 46.9Basal Metabolic Rate = 1422 kilo calories Darrell Addison, DNP, FLORAL ASSOCIATE, ORACLE EBS DEVELOPER-C [address] , [place], [address], [facility] & [place] 02/17/2025 08:58:07 02/21/2025 text/html 64-year-old femjose frank who presents for blood pressure follow-up. [...] she needs at night. Has appointment with vacuum kettle cook for left foot issues. She will have a follow-up April 01 with her oncologist and surgeon who plans to do surgery to remove extra tissue that has dropped After masectomy on April 18. COREY RAMIREZ NP [address] [place] [address], [address], [facility] & [place] 02/21/2025 16:54:35 OBGyn Episode No OBEpisode recorded.
--- OUTSIDE RECORDS SUMMARY | 2025-03-14 20:07 | XMS_ITS | Continuity of Care Document ---
Author Organization [place] [facility] & [facility] Address [address] [place] [address] Care Team Providers Care Nuclear Medicine Specialist Name Role Phone COREY RAMIREZ Primary Care Provider [phone] NELLIE COLÓN Hematology/Oncology [phone] Assessment No assessment recorded. Plan of Treatment Reminders Order Date Submit Date Provider Last Modified By Organization Details Last Modified Time Details Appointments OV EST 20 2024 09:20A M Darrell Addison, DNP, LINTER DRIER OPERATOR, CHIEF ENGINEER PRODUCTION-C Not available Not available Not available Lab HbA1c (hemoglob in A1c), blood 2023 025 [facility], [address], [address], [place], [address], 02/24/2025 07:38:43 copper, serum or plasma 2023 025 [facility], [address], [address], [place], [address], 02/24/2025 07:38:47 selenium, quantitat quentin, blood 2023 025 [facility], [address], [address], [place], [address], 02/24/2025 07:38:48 zinc, serum or plasma 2023 025 [facility], [address], [address], [place], [address], 02/24/2025 07:38:47 iron + TIBC + ferritin, serum 2023 025 [facility], [address], [address], [place], [address], 02/24/2025 07:38:38 folate, serum 2023 025 [facility], [address], [address], [place], [address], 02/24/2025 07:38:43 vitamin E, serum 2023 025 [facility], [address], [address], [place], [address], 02/24/2025 07:38:42 vitamin A (retinol) , serum 2023 025 [facility], [address], [address], [place], [address], 02/24/2025 07:38:44 prealbumi n, serum 2023 025 [facility], [address], [address], [place], [address], 02/24/2025 07:38:48 thiamine, QN, blood 2023 025 [facility], [address], [address], [place], [address], 02/24/2025 07:38:45 methylmal mode, QN, serum or plasma 2023 025 [facility], [address], [address], [place], [address], 02/24/2025 07:38:46 vitamin D, 25-hydrox y, total, serum 2023 025 [facility], [address], [address], [place], [address], 02/24/2025 07:38:45 CBC w/ auto diff 2023 025 [facility], [address], [address], [place], [address], 02/24/2025 07:38:40 CMP, serum or plasma 2023 025 [facility], [address], [address], [place], [address], 02/24/2025 07:38:40 TSH + free T4, serum 2023 025 [facility], [address], [address], [place], [address], 02/24/2025 07:38:39 lipid panel, serum 2023 025 [facility], [address], [address], [place], [address], 02/24/2025 07:38:41 Referral None recorded. Procedures None recorded. Surgeries None recorded. Imaging None recorded. Medication Orders omeprazol e 20 mg capsule,d elayed release 2024 025 [facility] [address] [place], [address], 02/17/2025 08:47:33 Patient TargetsNo targets recorded. Patient InstructionsNo instructions recorded. Reason for Referral None Reported. 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 07727326303 306908 Active COREY RAMIREZ NP [address] [place], [address] , [place] & [place] 5 09:52:56 Lipoma 56261299 Active COREY RAMIREZ NP [address] [facility], [place], [address] , [place] 5 09:52:56 Heartburn 40432641 Active 2024 Darrell Addison, DNP, LINTER DRIER OPERATOR, CHIEF ENGINEER PRODUCTION-C [address], [place], [address] , [place] 5 08:46:30 Hyperlipi demia 17153456 Active 2021 Abdoulaye Riddle null[place] 4 08:40:14 Essential hypertens ion 37916549 Active 2021 Abdoulaye Riddle [place] 4 08:40:12 Disorder of function of stomach 251929947 Active 2021 Abdoulaye Riddle [place] 4 08:40:09 Morbid obesity 258046657 Active 2021 Abdoulaye Riddle [place] 4 08:40:20 Essential hypertens ion 47598748 Active 2021 Abdoulaye Riddle [place] 4 08:40:12 Hyperlipi demia 56382087 Active 2021 Abdoulaye Riddle [place] 4 08:40:14 Renal cell carcinoma 665782635 Completed 202109/26/2022 Adry Mckinley [place] 3 09:54:07 Cat scratch disease 98816710 Completed 202109/26/2022 Abdoulaye Riddle [place] & [place] 09:05:01 Type 2 diabetes mellitus 57303506 Active 2021 Abdoulaye Riddle [place] & [place] 4 08:40:26 Obstructi ve sleep apnea syndrome 47427154 Active 2022 Abdoulaye Riddle [place] & [place] 4 08:40:25 Vomiting 288101670 Active 2022 Abdoulaye Riddle [place] & [place] 4 08:40:28 Dysphagia 79039513 Active 2022 Abdoulaye Riddle [place] & [place] 4 08:40:11 At increased risk for falls 320372236 Active Abdoulaye Riddle [place] & [place] 4 09:04:57 Hyperchol esterolem ia 87236004 Active Abdoulaye Riddle [place] & [place] 4 09:05:06 Body mass index 30+ - obesity 580290707 Active Abdoulaye Riddle [place] & [place] 4 09:04:59 Obese abdomen 921820210 Active Abdoulaye Riddle [place] & [place] 4 09:05:12 Malignant tumor of kidney 357460779 Active Abdoulaye Riddle [place] & [place] 4 09:05:10 Finding of tobacco use and exposure 551925249 Active Abdoulaye Riddle [place] & [place] 4 09:05:04 Hypertens quentin disorder 50104227 Active Abdoulaye Riddle [place] & [place] 4 09:05:08 Chronic periphera l venous hypertens ion 918570717 Active Abdoulaye Riddle null[place] [facility] & [place] 4 09:05:02 History of cholecyst ectomy 893337756 Active Abdoulaye Riddle [place] [facility] & [place] 4 09:05:05 Cat scratch disease 96646022 Active Abdoulaye Riddle null, [place] [facility] & [place] 4 09:05:01 Unintenti onal weight gain 03050924593 4104 Active 2023 George Garcia null, [place] [facility] & [place] 5 10:25:21 Rheumatoi d arthritis 14345169 Active 2023 George Garcia null, [place] [facility] & [place] 5 10:25:18 Problem Notes None recorded. Procedures Surgical History Date Name Laterality Status Provider Name and Address Organization Details Recorded Time 2023 Venipuncture completed Natalie Aguirre [place] & [place] 4 10:34:08 2023 Breast Surgery completed Tracy Jc [place] & [place] 08:30:20 2022 Cholecystectomy completed Ani Renner [place] & [place] 3 09:50:28 2022 Starr-en-Y gastrojejunostomy completed Valencia Razo [place] & [place] 3 10:55:18 2022 Abdominal Surgery completed Stephanie Cherry [place] & [place] 3 11:09:39 2022 Other completed COREY RAMIREZ NP [address] [place] [address], [address] [facility] [place] [facility] & [place] 3 09:24:33 2020 Cancer Surgery completed Shabnam Razo [place] & [place] 3 09:06:20 hysterectomy completed COREY RAMIREZ NP [address] [facility], [place], [address], [place] [facility] & [place] 3 15:33:49 esophagogastroduodenoscopy completed Mala Leo [place] - [facility] & [place] 3 08:32:11 Mastectomy completed Tracy Babita [place] - [facility] & [place] 5 08:39:39 excision of bilatera l breasts completed Ani Renner [place] - [facility] & [place] 5 08:31:34 hysterectomy completed Adry Elías [place] [facility] & [place] 3 09:54:07 section completed Adry Elías [place] [facility] & [place] 3 09:54:07 procedure on kidney completed Jaydedrew jose [facility] & [place] 3 09:54:07 kidney operation completed Shabnam Gilze [place] - [facility] & [place] 2 15:02:18 Tubal Ligation completed Shabnam Dung [place] [facility] & [place] 2 15:02:25 Imaging Results None recorded. Procedure Notes None recorded. Medical Equipment None Reported. Allergies Allergen ID Allergen Name Allergen Category Reaction Reaction Severity Criticality Documentation Date Start Date Code Code System Note Provider Name and Address Organization Details Recorded Time 832057 Substance with morphinan structure and opioid receptor agonist mechanism of action (substanc e) medicatio n Not available Not available Not available 05/14/2024 07897 9000 SNOMED Stephanie Cherry null, [place] [facility] & [place] 4 12:08:05 50839 Product containin g penicilli n (product) medicatio n rash moderate Not available 08/22/2022 83649 8001 SNOMED Adry Mckinley null, [place] [facility] & [place] 3 09:54:06 62622 Product containin g penicilli n (product) medicatio n Not available Not available Not available 09/26/2022 87443 8001 SNOMED Marcos Sharp-Bec bernardo [facility], [place] [facility] [place] 3 08:02:53 91686 morphine medicatio n anaphylax is hives severe moderate high 09/26/2022 7052 RxNorm Cady Velasco null, [facility] & [place] 5 14:35:40 38160 penicilli n V Not available rash moderate Not available 02/20/2023 7984 RxNorm Shabnam Razo null, [facility] & [place] 3 10:16:08 Medications Name Sig Start Date [...] Available Vitals Date Recorded Body height Body temperature Heart rate Body mass index (BMI) Body weight Systolic blood pressure Diastolic blood pressure Provider Name and Address Organization Details Last Updated DateTime 5 162.56 cm 98.2 [degF] 68 /min 34.7 kg/m2 13652.3 8 g 154 mm[Hg] 82 mm[Hg] Ani Renner [facility] & [place] 5 08:34:06 Social History Question Answer Notes LastModified by Organizat ion Details LastModified Time Tobacco Smoking Status Never Smoker Not Available [employer] 01/31/2023 09:12:06 Do You Have An Advance Directive? No [email or web address] Information n ot available 05/24/2024 What Is Your Level Of Alcohol Consumption? None CHART_MERGE Information not available 01/31/2023 Do You Wear A Helmet When Biking? Yes [email or web address] Information not available 05/24/2024 Are You Blind Or Do You Have Difficulty Seeing? No CHART_MERGE Information n ot available 01/31/2023 What Is Your Level Of Caffeine Consumption? None [email or web address] Information not available 10/02/2023 In The 14 Days Before Symptom Onset, Have You Had Close Contact With A Laboratory-confirm ed COVID-19 While That Case Was Ill? No [email or web address] Information n ot available 05/24/2024 In The 14 Days Before Symptom Onset, Have You Had Close Contact With A Person Who Is Under Investigation For COVID-19 While That Person Was Ill? No [email or web address] Information not available 05/24/2024 Have You Been To An Area Known To Be High Risk For COVID-19? No [email or web address] Information not available 05/24/2024 Are You Currently Employed? No [email or web address] Information not available 05/24/2024 Are You Deaf Or Do You Have Serious Difficulty Hearing? No [email or web address] Information not available 05/24/2024 What Type Of Diet Are You Following? REGULAR [email or web address] Information n ot available 05/24/2024 Have You Processed Blood Or Body Fluids From An Ebola Virus Disease Patient Without Appropriate PPE? No [email or web address] Information not available 05/24/2024 Do You Reside In Or Have You Traveled To An Area Where Ebola Virus Transmission Is Active? No [email or web address] Information not available 05/24/2024 Have There Been Any Changes To Your Family Or Social Situation? No [email or web address] Information no t available 05/24/2024 What Is The Fluoride Status Of Your Home? Unknown Information not available 05/24/2024 Are There Any Guns Present In Your Home? No [email or web address] Information not available 05/24/2024 Have You Recently Or Are You Planning To Travel To An Area With Zika Virus? No [email or web address] Information not available 05/24/2024 Do You Use Insect Repellent Routinely? Yes [email or web address] Information not available 05/24/2024 Do You Feel Safe At Home? Yes [email or web address] Information not available 05/24/2024 Do You Have A Medical Power Of Nursing Project Coordinator? No Information not available 05/24/2024 What Was The Date Of Your Most Recent Tobacco Screening? 02/21/2025 [email or web address] Information not available 02/21/2025 Do You Have Any Pets? Yes [email or web address] Information not available 05/24/2024 What Is Your Relationship Status? [email or web address] Information not available 01/17/2025 Do You Use Your Seat Belt Or Car Seat Routinely? Yes [email or web address] Information not available 05/24/2024 Do You Have Smoke And Carbon Monoxide Detectors In Your Home? Yes [email or web address] Information not available 05/24/2024 Are You Passively Exposed To Smoke? No Information no t available 05/24/2024 Do You Or Have You Ever Used Smokeless Tobacco? Never Used Smokeless Tobacco CHART_MERGE Information not available 01/31/2023 How Much Tobacco Do You Smoke? No CHART_MERGE Information not available 01/31/2023 Do You Feel Stressed (tense, Restless, Nervous, Or Anxious, Or Unable To Sleep At Night)? CG0120-2 [email or web address] Information not available 05/24/2024 Do You Use Any Illicit Or Recreational Drugs? No CHART_MERGE Information not available 01/31/2023 Do You Use Sunscreen Routinely? Yes Information not available 05/24/2024 Has Tobacco Cessation Counseling Been Provided? No [email or web address] Information not available 10/02/2023 How Many Years Have You Smoked Tobacco? 0 CHART_MERGE Information not available 01/31/2023 Are You Currently In School? No [email or web address] Information not available 05/24/2024 Do You Or Have You Ever Used Any Other Forms Of Tobacco Or Nicotine? No Information not available 10/02/2023 Sex: Female Functional Status Question Answer Note LastModified by Organizat ion Details LastModified Time Do you have difficulty walking or climbing stairs? No [email or web address] Information not available 05/24/2024 Do you have transportation difficulties? No [email or web address] Information not available 05/24/2024 Are you able to walk? YESWOREST [email or web address] Information not available 05/24/2024 Do you have difficulty doing errands alone? No [email or web address] Information not available 05/24/2024 Are you able to care for yourself? Yes [email or web address] Information not available 05/24/2024 Do you have difficulty dressing or bathing? No [email or web address] Information not available 05/24/2024 What is your exercise level? Moderate tamburgey Information not available 07/31/2023 Mental Status Question Answer Note LastModified by Organization D etails LastModified Time Do you have difficulty concentrating, remembering or making decisions? No [email or web address] Information no t available 05/24/2024 Family History [...] Time Tdap 3 completed COREY RAMIREZ NP [address] [place], [address], [place] & [place] 01/06/2023 15:33:41 pneumococcal polysaccharide PPV23 3 completed COREY RAMIREZ NP [address] [facility], [place], [address], [place] & [place] 01/06/2023 15:33:41 COVID-19, mRNA, LNP-S, PF, 100 mcg/0.5mL dose or 50 mcg/0.25mL dose 1 completed Not Available [facility] 03/06/2023 22:25:09 COVID-19, mRNA, LNP-S, PF, 100 mcg/0.5mL dose or 50 mcg/0.25mL dose 1 completed Not Available [facility] 03/06/2023 22:25:09 COVID-19, mRNA, LNP-S, PF, 100 mcg/0.5mL dose or 50 mcg/0.25mL dose 1 completed Not Available [facility] 03/06/2023 22:25:09 Influenza, split virus, quadrivalent, preservative 1 completed Not Available [facility] 03/06/2023 22:25:09 Influenza, split virus, quadrivalent, PF 3 completed COREY RAMIREZ NP [address] [place], [address], [place] 07/31/2023 16:21:07 zoster recombinant 3 completed Stephanie Cherry [place] & [place] 05/14/2024 12:07:51 zoster recombinant 3 completed Stephanie Cherry [place] 05/14/2024 12:07:51 Influenza, recombinant, trivalent, PF 4 completed Tracy Jc [place] & [place] 10/24/2024 10:35:05 Influenza, split virus, quadrivalent, PF 2 completed COREY RAMIREZ NP [address] [place], [address], [place] 10/05/2022 10:02:41 Past Encounters Encounter ID Performer Location Encounter Start Date Encounter Closed Date Diagnosis/Indication Diagnosis SNOMED-CT Code Diagnosis ICD10 Code Diagnosis Note [id number] Darrell Addison, DNP, LINTER DRIER OPERATOR, CHIEF ENGINEER PRODUCTION-C [facility] [address] [address] [place] [address] 02/17/2025 08:22:28 02/17/2025 09:14:24 History of bariatric surgical procedure 289399042 Z98.84 Intentiona l weight loss 451178073 R63.8 History of gastrectomy 928016099 Z90.3 Advised qid intake 50% protein 2793-1112 calories/d y less than 100 carbs/dyLo ng [...] to correct any vitamin deficienci es. At [facility] risk of nutritional deficit 121479986 Z91.89 Essential hypertension 25772589 I10 Hyperlipidemia 03509179 E78.5 Obstructiv e sleep apnea syndrome 50020427 G47.33 Type 2 vahe betes mellitus 37552158 E11.9 Heartburn 08269760 R12 GERD-patie nt was reassured. We discussed [...] avoid foods that may aggravate the problem. [id number] COREY RAMIREZ NP [facility] [address] [place], [place] [address] 01/17/2025 09:36:16 01/17/2025 10:14:47 Essential hypertension 69778352 I10 educated on goal of less than [...] Concerns Section Related Observation LastModified by Organization Pete ls LastModified Time None Recorded Concern Status LastModified by Organization Details LastModified Time None Recorded Payers Encounter Date Sequence Insurance Name Policy Number Policy Bedoya Covered Member ID Bedoya Member ID Guarantor Name 02/17/2025 1 [place] [id number] 9 Chiqui Curran [id number] Chiqui Curran Notes Date Note Type Note Provider Name and Address Organization Details Recorded Time 02/17/2025 text/html Patient presents the office today for routine follow-up status post bariatric gastric RNY bypass surgery performed on . Patient doing well. Reports q.i.d. small meal intake. Reports >70g/dy protein intake and good hydration.Patient is drinking 64 ounces of water a day.Daily Calories has not been counting Taking routine vitamins as advised.Heartburn /gastroesophageal reflux: yes, has been taking PPI for [...] seen pcp and is to follow up monday afternoon. She enjoys gardening. Today's InBody reveals a skeletal muscle mass =58.2 lb,body fat mass =94.8 lb,BMI = 34.7Percent body fat = 46.9Basal Metabolic Rate = 1422 kilo calories Darrell Addison, DNP, LINTER DRIER OPERATOR, CHIEF ENGINEER PRODUCTION-C [address], [place], [address], [facility] - [place] - [place] & [place] 02/17/2025 08:58:07 OBGyn Episode No OBEpisode recorded.
== END ==
LOC: SL 20:05
PROVIDERS: PCP Nurse Practitioner Family; Visit Provider Specialist
DX: G47.33 Obstructive sleep apnea (adult) (pediatric) (principal); G47.34 Idiopathic sleep related nonobstructive alveolar hypoventilation; Z68.41 Body mass index [BMI] 40.0-44.9, adult
CPT/HCPCS: 95811